=== PATIENT | female | born 1955 | race Caucasian/White ===

== ENCOUNTER 2023-12-25 15:47 | Outpatient (OUT) | payer MEDICARE, OTHER, SELFPAY ==
[2023-12-25 16:49] LABS: Basophils Absolute Auto 0.1 10^3/uL (0.0-0.1); Basophils Percent Auto 1.2 % (0.2-2.0); Eosinophils Absolute Auto 0.1 10^3/uL (0.0-0.7); Eosinophils Percent Auto 1.5 % (0.9-7.0); Hematocrit 38.5 % (36.0-48.0); Hemoglobin 13.1 g/dL (12.0-16.0); Immature Granulocytes Abs Auto 0.01 10^3/uL (0.00-0.03); Immature Granulocytes Pct Auto 0.2 % (0.0-0.5); Lymphocytes Percent Auto 30.8 % (20.5-60.0); Mean Corpuscular Hemoglobin 30.8 pg (26.7-34.0); Mean Corpuscular Volume 90.4 fL (81.0-99.0); Mean Platelet Volume 10.3 fL (9.5-13.5); Monocytes Absolute Auto 0.4 10^3/uL (0.3-0.8); Monocytes Percent Auto 6.5 % (1.7-12.0); Neutrophils Percent Auto 59.8 % (43.0-75.0); Platelet Count 236 10^3/uL (150-450); Red Blood Count 4.26 10^6/uL (4.20-5.40); Red Cell Distribution Width 12.8 % (11.0-15.0); White Blood Count 6.6 10^3/uL (4.0-11.0)
[2023-12-25 17:43] LABS: Free T4 1.16 ng/dL (0.76-1.46)
[2023-12-25 17:44] LABS: Alanine Aminotransferase 18 U/L (14-59); Albumin Globulin Ratio 0.9; Albumin Level 3.7 g/dL (3.4-5.0); Alkaline Phosphatase 86 U/L (46-116); Anion Gap 10.8; Aspartate Amino Transferase 14 U/L (15-37); BUN Creatinine Ratio 31.6; Bilirubin Total 0.4 mg/dL (0.2-1.0); Calcium 9.4 mg/dL (8.5-10.1); Carbon Dioxide 29.1 mmol/L (21.0-32.0); Chloride 103 mmol/L (98-107); Estimated GFR (African America >60 (>=60); Estimated GFR (Non-African Ame >60 (>=60); Globulin 4.2 g/dL; Glucose 87 mg/dL (74-106); Potassium 3.9 mmol/L (3.5-5.1); Sodium 139 mmol/L (136-145); Thyroid Stimulating Hormone 1.089 uIU/mL (0.358-3.740); Total Protein 7.9 g/dL (6.4-8.2)
== END 2023-12-25 15:48 | disposition home or self-care (01) ==
LOC: LAB 15:54
PROVIDERS: PCP Family Medicine; Visit Provider Family Medicine
DX: Z00.00 Encounter for general adult medical examination without abnormal findings (principal); E03.9 Hypothyroidism, unspecified; R03.0 Elevated blood-pressure reading, without diagnosis of hypertension
CPT/HCPCS: 36415; 80053; 84439; 84443; 85025

== ENCOUNTER 2025-01-07 07:54 | Outpatient (OUT) | payer MEDICARE, OTHER, SELFPAY ==
--- OUTSIDE RECORDS SUMMARY | 2025-01-06 07:28 | XMS_ITS | Continuity of Care Document ---
Author Organization [facility] Address [address] [place] [address] Phone Care Team Providers Care Bench Tool Maker Name Role Phone Aurora Anderson MD Primary Care Provider Aurora Anderson MD Attending Provider Care Teams Patient Care Team Team Status: Active Member Role Status Dates Aurora Anderson MD Primary Care Provider Active Patient Care Team Team Status: Inactive Member Role Status Dates Aurora Anderson MD Primary Care Provider Active Start: January 06, 2025 End: January 06, 2025 Aurora Anderson MD Attending Provider Active St art: January 06, 2025 End: January 06, 2025 Chief Complaint and Reason for Visit Chief Complaint Admit Date Wellness January 06, 2025 10:5 2am Reason for Visit Admit Date Hypercholesteremia January 06, 2025 10:5 2am Hypothyroid January 06, 2025 10:5 2am Medicare annual wellness visit, initial January 06, 2025 10:52am Screening mammogram for breast cancer Ju ly 2024 10:52am Allergies, Adverse Reactions, Alerts Allergen Type Severity Reaction Last Updated Verified Status penicillin G Allergy Severe Rash January 06 025 10:59am Yes Active azithromycin Allergy Unknown Unknown Reaction December 092024 10:59am Yes Active Penicillins Adverse Reaction Unknown Rash January 062024 10:59am Yes Active Social History Smoking Status Status Start Date End Date Date of Observa tion Never smoked tobacco (finding) August 28, 2023 11:16am Observation Status Observation Response Date of Response Legal Sex Female (finding) Sex Assigned At Female November 1 7th, 1955 Family History Relationship Condition Age at Onset Recorded Date/T socorro father Heart disease Unknown Diabetes mellitus Unknown Unknown mother Unknown Malignant neoplasm Unknown sister Diabetes mellitus Unknown Problems Active Problems Medical Problem Onset Date Status Comments Medicare annual wellness visit, initial Unknown A ctive Screening mammogram for breast cancer Unknown Act hernando Overweight (BMI 25.0-29.9) Unknown Active Abnormal weight gain Unknown Active Hypercholesteremia Unknown Active Hypothyroid Unknown Active Problem List cl fabienne-up per request of Phys. EHR Cmte Elevated blood-pressure read ing, without diagnosis of hypertension Unknown Active Inactive/Resolved Problems Medical Problem Onset Date Status Comments Alcoholic intoxication Unknown Resolved Probl em List clean-up per request of Phys. EHR Cmte Syncope Unknown Resolved Problem List cl fabienne-up per request of Phys. EHR Cmte Medications Medication Status Dose Units Route Directions Qty Days St art Date Stop Date End Date Instructions Adherence Levothyroxi ne 75 mcg tablet Discont inued 0 [address] [facility] December 05, 2023 11:02a m 2023 1:20p m TAKE 1 TABLET BY MOUTH EVERY DAY Levothyroxi ne 75 mcg tablet Discont inued [address] [address] 2023 1:20pm August 31, 2024 12:55 pm TAKE 1 TABLET BY MOUTH EVERY DAY Levothyroxi ne 75 mcg tablet Discont inued 0 [address] [address] August 31, 2024 12:55p m November 25, 2024 12:18 pm TAKE 1 TABLET BY MOUTH EVERY DAY Levothyroxi ne 75 mcg tablet Active 0 [address] [address] November 25, 2024 12:18p m TAKE 1 TABLET BY MOUTH EVERY DAY Complies with drug therapy Levothyroxi ne (Synthroid) 75 mcg tablet Discont inued 37.5 MCG PO Daily August 28, 2023 12:00a m October 09, 2023 11:23 am Magnesium Oxide 500 mg capsule Discont inued 500 MG PO Daily August 28, 2023 12:00a m November 20, 2023 2:45p m Levothyroxi ne (Synthroid) 75 mcg tablet Discont inued 75 MCG PO Daily October 09, 2023 11:22a m December 05, 2023 11:02 am Semaglutide Base 0.6 mg/0.5 mL Discont inued 0.5 ML SUBCUT every week December 26, 2023 12:00a m 2024 12:54 pm [facility] Pre-filled Syringes using Semaglutide Base. Dispense 2 mL = (Four 0.5 mL pre-filled syringes) Naltrexone- Bupropion (Contrave) 8-90 mg tablet extended release Discont inued 1 TAB PO Every morning August 14, 2023 1:00am August 14, 2023 2:50p m Naltrexone- Bupropion (Contrave) 8-90 mg tablet extended release Discont inued 2 TAB PO Twice daily August 14, 2023 2:50pm August 14, 2023 2:51p m Naltrexone- Bupropion (Contrave) 8-90 mg tablet extended release Discont inued 2 TAB PO Twice daily August 14, 2023 2:50pm October 09, 2023 11:49 am Semaglutide Base 0.3 mg/0.25 mL Discont inued 0.25 ML SUBCUT every week October 09, 2023 12:00a m October 09, 2023 11:49 am [facility] Pre-filled Syringes using Semaglutide Base. Dispense 1 mL = (Four 0.25 mL pre-filled syringes) Semaglutide Base 0.3 mg/0.25 mL Discont inued 0.25 ML SUBCUT every week October 09, 2023 12:00a m December 26, 2023 10:53 am [facility] Pre-filled Syringes using Semaglutide Base. Dispense 1 mL = (Four 0.25 mL pre-filled syringes) Semaglutide Base 0.6 mg/0.5 mL Discont inued 0.5 ML SUBCUT every week 2 2024 12:53p m January 06, 2025 10:59 am [facility] Pre-filled Syringes using Semaglutide Base. Dispense 2 mL = (Four 0.5 mL pre-filled syringes) Vital Signs Vital Reading Result Reference Range Collection Date/Time Height 65 [in_i] January 06, 2025 10:58am Weight 76.43 kg January 06, 2025 10:58am Heart Rate 73 /min 60-100 January 06, 2025 10:58am Respiratory rate 12 /min 12-24 January 06, 2025 10:58am Oxygen saturation by Pulse oximetry 97 % 95-100 January 06, 2025 10:5 8am BP Systolic 131 mm[Hg] 100-140 January 06, 2025 10:58am BP Diastolic 73 mm[Hg] 60-100 January 06, 2025 10:58am BMI (Body Mass Index) 28.0 kg/m2 December 092024 10:58am Advance Directives Advance Directive Response Recorded Date/ Time Advance Directives No September 14 10:57am Insurance Providers Guarantor Noris Pandya Address [address] [facility] [address] Contact Info. Home Phone: Payer Policy Id Subscriber's Name Subscriber Id Effectiv e Date Expiration Date [facility] [id number] Noris Pandya [id number] Medicare [id number] Noris Pandya [id number] Encounters Encounter Location(s) Arrival/Admit Date Discharge/Depart Date Provider(s) Departed Physician/Prov ider Office Visit -[facility] January 06, 2025 10:52am January 06, 2025 11:27am Aurora Anderson MD Recent Diagnosis Onset Date Admit Date Hypercholesteremia Unknown January 06 10:52am Hypothyroid Unknown January 06, 2025 10:52am Medicare annual wellness visit, initial Unknown January 06, 2025 10:52am Screening mammogram for breast cancer Unknown January 06, 2025 10:52am Assessments Diagnosis Onset Date Resolution Status Admit Date Hypercholesteremia acute December 092024 10:52am Hypothyroid acute January 06 10:52am Medicare annual wellness vis it, initial acute January 06, 2025 10:52am Screening mammogram for lyla [facility] cancer acute January 06, 2025 10:52am Plan of Treatment Future Tests Future scheduled test information is unavailable Pending Tests Test Name Ordered Date Scheduled Date Comprehensive Metabolic Panel January 06, 2025 11 :07am MM screening mammo BI w/CAD January 06, 2025 11:0 9am Future Visits Future appointment information is unavailable Referrals to Other Providers Referral information is unavailable Future Procedures Procedure Name Ordered Date Scheduled Date Complete Blood Count Auto Diff January 06, 2025 1 1:08am Free T4 (Free Thyroxine) January 06, 2025 11:07am Thyroid Stim Hormone w/Rflx January 06, 2025 11:0 7am Future Medications Future medication information is unavailable Patient Instructions Patient instructions are unavailable
--- NOTE | 2025-01-07 | MM_ITS ---
Patient Name: SELINA HAWK MR#: [id number] : 1955 Exam Date: 01/07/2025 Ordering Doctor: DR PIERRE FERGUSON M.D. RADIOLOGY REPORT PROCEDURE: MM TOMOSYNTHESIS SCREENING BI COMPARISON: MG MAMM SCREEN 3D LINA CAD, 11/01/2022. MG MAMM SCREEN 3D LINA CAD, 01/08/2021. MAMMO POST BIOPSY LEFT, 05/27/2018. MG MAMM SCREEN LINA W CAD, 04/14/2018. INDICATIONS: SCREENING FOR MALIGNANT NEOPLASM OF BREASTS Z12.31 Calculator Name NCI Breast Cancer Risk Assessment Tool 5 Year Breast Cancer Risk 2.50% Lifetime Breast Cancer Risk 7.40% Personal Breast Cancer No Personal Ovarian Cancer No Treatments None Family Cancers Mother with stomach cancer at age ~72. LOCATION: [facility] BREAST COMPOSITION: There are scattered areas of fibroglandular density. FINDINGS: DIAGNOSTIC CATEGORY 1--NEGATIVE. RIGHT BREAST: No significant suspicious finding. LEFT BREAST: No significant suspicious finding. RECOMMENDATIONS: ROUTINE MAMMOGRAM AND CLINICAL EVALUATION IN 12 MONTHS. PLEASE NOTE: A NORMAL MAMMOGRAM DOES NOT EXCLUDE THE POSSIBILITY OF BREAST CANCER. A CLINICALLY SUSPICIOUS PALPABLE LUMP SHOULD BE BIOPSIED. Dictated by: Marcio Rodney DO on 01/07/2025 at 15:39 Approved by: Marcio Rodney DO on 01/07/2025 at 15:46
--- OUTSIDE RECORDS SUMMARY | 2025-01-07 07:55 | XMS_ITS | Encounter Summary ---
Author Organization [facility] Address [address] [facility] [place] [address] Care Team Providers Care Manager Life Insurance Name Role Phone Aurora Anderson MD Primary Care Provider [phone] Encounter Details Date Type Department Care Team (Late st Contact Info) Description 04/10/2023 Abstract [facility] [address] [place] [id number] Vesna Bueno, YESSY [address] [place] [address] Social History Tobacco Use Types Packs/Day Years Used Date Smoking Tobacco: Never Assessed AUDIT-C Answer Date Recorded Q1: How often do you have a drink containing alc ohol? Monthly or less 04/14/2023 Q2: How many drinks containi ng alcohol do you have on a typical day when you are drinking? 1 or 2 04/14/2023 Q3: How often do you have si x or more drinks on one occasion? Never 04/14/2023 Comments Unknown Sex and Gender Information Value Date Recorded Sex Assigned at Not on file Legal Sex Female 6:38 PM EDT Gender Identity Not on file Sexual Orientation Not on file documented as of this encounter Plan of Treatment Not on file documented as of this encounter Visit Diagnoses Not on filedocumented in this encounter Care Teams Manager Life Insurance Relationship Specialty Start Date End Date Aurora Anderson MD PCP - General Family Medicine 04/08/23 documented as of this encounter
--- OUTSIDE RECORDS SUMMARY | 2025-01-07 07:55 | XMS_ITS | Clinical Summary ---
Author Organization [facility] Address [address] [place] [address] Care Team Providers Care Manager Salt Name Role Phone Aurora Anderson MD Primary Care Provider [phone] Allergies Active Allergy Reactions Criticality Noted Date Comments Azithromycin 04/10/2023 Other Reaction(s): Unknown Penicillin G Sodium Rash Low 04/10/2023 Medications levothyroxine (Synthroid, Levoxyl) 75 MCG tablet Take 75 mcg by mouth 1 (one) time each day at the same time. Active meloxicam (Mobic) 15 MG tablet Take 15 mg by mouth 1 (one) time each day at the same time. Active ergocalciferol (Vitamin D-2) 1.25 MG (30825 UT) capsule Take 50,000 Units by mouth 1 (one) time per week. Active fluticasone (Flonase) 50 MCG/ACT nasal spray Administer 2 sprays into each nostril every 12 (twelve) hours. Active Active Problems Problem Noted Date Diagnosed Date Benign paroxysmal positional vertigo 04/10/2023 Eustachian tube disorder 04/10/2023 Hearing loss in left ear 04/10/2023 Osteoarthritis of knee 04/10/2023 Sensorineural hearing loss (SNHL) of both ears 1 06/10/2022 Hypothyroid 04/10/2023 Vitamin D deficiency 04/10/2023 Hyperlipidemia 04/10/2023 Family History Medical History Relation Name Comments No Known Problems Daughter Diabetes Father Heart disease Father Cancer Mother Melanoma Neg Hx Relation Name Status Comments Daughter x2 Father Mother Social History Tobacco Use Types Packs/Day Years Used Date Smoking Tobacco: Never Smokeless Tobacco: Never Tobacco Cessation:Counseling Given: Not Answered Alcohol Use Standard Drinks/Week Comments Yes 0 (1 standard drink = 0.6 oz pure alcohol) caffeine intake: 1-2 cups per day AUDIT-C Answer Date Recorded Q1: How often [...] on file Sexual Orientation Not on file Last Filed Vital Signs Vital Sign Reading Time Taken Comments Blood Pressure 137/87 07/23/2023 3:11 PM EST Pulse - - Temperature - - Respiratory Rate - - Oxygen Saturation - - Inhaled Oxygen Concentration - - Weight 78.9 kg (174 lb) 07/23/2023 3:11 PM EST Height 167.6 cm (5' 6 ) 07/23/2023 3:11 PM EST Body Mass Index 28.08 07/23/2023 3:11 PM EST Plan of Treatment Health Maintenance Due Date Last Done Comments CT Colonography 1955 Colonoscopy 1955 Colorectal Cancer Screening 1955 FIT-DNA 1955 FIT 1955 FOBT 1955 Sigmoidoscopy 1955 Mammogram 1994 Pneumococcal Vaccine: 65+ Years (1 of 1 - PCV) 004 Influenza Vaccine (#1) 2025 Insurance MEDICARE [employer] [facility] Care Teams Manager Salt Relationship Specialty Start Date End Date Aurora Anderson MD PCP - General Family Medicine 04/08/23
--- OUTSIDE RECORDS SUMMARY | 2025-01-07 07:55 | XMS_ITS | Clinical Summary ---
Author Organization [facility] Address [address] [place] [address] Phone Care Team Providers Care Yard Foreman Name Role Phone Unavailable Primary Care Provider Unavailabl e Social History Tobacco Use Types Packs/Day Years Used Date Smoking Tobacco: Never Assessed Comments Unknown Sex and Gender Information Value Date Recorded Sex Assigned at Not on file Legal Sex Female 5:41 PM EST Gender Identity Not on file Sexual Orientation Not on file Plan of Treatment Health Maintenance Due Date Last Done Comments CT Colonography 1955 Colonoscopy 1955 Colorectal Cancer Screening 1955 FIT-DNA (Cologuard) 1955 FIT 1955 Lipid Panel 1955 Sigmoidoscopy 1955 Yearly Adult Physical 1955 MMR Vaccines (1 of 1 - Stand rhonda series) 1955 Hepatitis C Screening 1972 DTaP/Tdap/Td Vaccines (1 - Tdap) 1976 Mammogram 1994 Pneumococcal Vaccine (1 of 1 - PCV) 2004 Zoster Vaccines (1 of 2) 2004 Bone Density Scan 2019 COVID-19 Vaccine (1 - 2023-2 5 season) 2024 Influenza Vaccine (#1) 2025 RSV High Risk: (Elderly (60+ ) or Population) (1 - 1-dose 75+ series) 2029 HIB Vaccines Aged Out No longer eligi ble based on patient's age to complete this topic HPV Vaccines Aged Out No longer eligi ble based on patient's age to complete this topic Hepatitis A Vaccines Aged Out No long er eligible based on patient's age to complete this topic Hepatitis B Vaccines Aged Out No long er eligible based on patient's age to complete this topic IPV Vaccines Aged Out No longer eligi ble based on patient's age to complete this topic Meningococcal Vaccine Aged Out No marylou vince eligible based on patient's age to complete this topic Rotavirus Vaccines Aged Out No longer eligible based on patient's age to complete this topic
--- OUTSIDE RECORDS SUMMARY | 2025-01-07 07:57 | XMS_ITS | CCD ---
Author Organization [facility] Care Team Providers Care Access Analyst Name Role Phone AURORA FERGUSON Primary Care Physician Timmis, Beatriz H Admitting Unavailable Timmis, Beatriz H Attending Unavailable Timmis, Beatriz H Referring Unavailable Timmis, Beatriz H Admitting Unavailable Timmis, Beatriz H Attending Unavailable Timmis, Beatriz H Referring Unavailable FERGUSON, DR AURORA [place] Primary Care Unavailable FERGUSON, DR AURORA [place] Consulting Unavailable REQUEST, DR VICENTE LISTED Admitting Unavaila ble REQUEST, DR VICENTE LISTED Attending Unavaila ble FERGUSON, DR AURORA [place] Admitting Unavailable FERGUSON, DR AURORA [place] Primary Care Unavailable FERGUSON, DR AURORA [place] Attending Unavailable WEST, DR KONG cMkee Consulting Unavailable FERGUSON, DR AURORA [place] Consulting Unavailable Aurora Ferguson Aurora Ferguson MD Primary Care Provider [phone] TIMMIS, BEATRIZ Haas Attending Unavailable TIMMIS, BEATRIZ Haas Attending Unavailable Aurora Ferguson MD Primary Care Provider Aurora Ferguson MD Attending Provider Allergies Allergy Classification Reported Allergen(s) Allergy Type Date of Onset Reaction(s) Facility (4 sources) Penicillin; Translations: [penicillin] Drug Allergy [facility] (20 sources) Azithromycin Drug Allergy 3 Unknown, Unknown Reaction [facility] Work Phone: (19 sources) Penicillin G Drug Allergy 4 Unknown, [facility] (6 sources) Penicillin G sodium Allergy to substance 3 [facility] (10 sources) Penicillins Propensity to adverse reactions 4 [facility] Medications Current Medications Medication Drug Class(es) Dates Sig (Normalized) Sig (Original) ergocalciferol 1.25 mg oral capsule (6 sources) Provitamin D2 Compound take 1 capsule by mouth every week ergocalciferol (Vitamin D-2) 1.25 MG (60132 UT) capsule Take 50,000 Units by mouth 1 (one) time per week. 0 Active fluticasone propionate 0.05 mg/actuat metered dose nasal spray (6 sources) Corticosteroid fluticasone (Flonase) 50 MCG/ACT nasal spray Administer 2 sprays into each nostril every 12 (twelve) hours. 0 Active levothyroxine sodium 0.075 mg oral tablet (20 sources) l-Thyroxine Start: 12-05-2023 End: 11-25-2024 take 1 tablet by mouth once daily Levothyroxine 75 mcg tablet Active 0 .ROUTE .COMPLEX 90 November 25, 2024 12:18pm TAKE 1 TABLET BY MOUTH EVERY DAY Complies with drug therapy Start: 10-09-2023 End: 12-05-2023 take 1 tablet by mouth once daily Levothyroxine (Synthroid) 75 mcg tablet Discontinued 75 MCG PO Daily October 09, 2023 11:22am December 05, 2023 11:02am Start: 08-28-2023 End: 10-09-2023 Levothyroxine (Synthroid) 75 mcg tablet Discontinued 37.5 MCG PO Daily August 28, 2023 12:00am October 09, 2023 11:23am Start: 03-01-2022 levothyroxine 75 mcg (0.075 mg) Tab 75 mcg = 1 tab(s), Refills(s) 0, Thyroid Start Date: 03/01/22 Status: Ordered take 1 tablet by adriel once daily levothyroxine (Synthroid, Levoxyl) 75 MCG tablet Take 75 mcg by mouth 1 (one) time each day at the same time. 0 Active meloxicam 15 mg oral tablet (6 sources) Nonsteroidal Anti-inflammatory Drug take 1 tablet by mouth once daily meloxicam (Mobic) 15 MG tablet Take 15 mg by mouth 1 (one) time each day at the same time. 0 Active ofloxacin 3 mg/ml otic solution (2 sources) Quinolone Antimicrobial Start: 07-23-19 End: 08-02-19 ofloxacin (Floxin) 0.3 % otic solution Indications: Chronic myringitis of left ear Administer 4 drops into the left ear in the morning and 4 drops before bedtime. Do all this for 10 days. 10 mL 0 07/23/2023 08/02/2023 Active phentermine hydrochloride 37.5 mg oral capsule (6 sources) Sympathomimetic Amine Anorectic Start: 04-14-20 take 1 capsule by mouth every twenty-four hours Adipex-P 37.5 MG 1 capsule Orally Once a day for 30 days Apr, Active Start: 04-11-2023 take 1 capsule by mo uth every twenty-four hours Adipex-P 37.5 MG 1 capsule Orally Once a day for 30 days Apr, Active Start: 02-13-2023 take 1 capsule by mo uth every twenty-four hours Adipex-P 37.5 MG 1 capsule Orally Once a day for 30 days Feb, Active Start: 01-16-2023 take 1 capsule by mo uth every twenty-four hours Adipex-P 37.5 MG 1 capsule Orally Once a day for 30 days Jan, Active Start: 11-21-2022 take 1 capsule by mo uth every twenty-four hours Semaglutide Base (13 sources) Start: 12-26-2023 inject 1 mL by subcutaneous injection every week Semaglutide Base Active 0.5 ML SUBCUT every week December 25, 2023 11:00pm [facility] Pre-filled Syringes using Semaglutide Base. Dispense 2 mL = (Four 0.5 mL pre-filled syringes) Start: 12-26-2023 inject 1 mL by subcu taneous injection every week Semaglutide Base Active 0.5 ML SUBCUT every week December 26, 2023 12:00am [facility] Pre-filled Syringes using Semaglutide Base. Dispense 2 mL = (Four 0.5 mL pre-filled syringes) Start: 10-09-2023 End: 10-09-2023 inject 1 mL by subcutaneous injection every week Semaglutide Base Discontinued 0.25 ML SUBCUT every week October 08, 2023 11:00pm October 09, 2023 10:49am [facility] Pre-filled Syringes using Semaglutide Base. Dispense 1 mL = (Four 0.25 mL pre-filled syringes) Start: 10-09-2023 End: 12-26-2023 inject 1 mL by subcutaneous injection every week Semaglutide Base Discontinued 0.25 ML SUBCUT every week October 08, 2023 11:00pm December 26, 2023 9:53am [facility] Pre-filled Syringes using Semaglutide Base. Dispense 1 mL = (Four 0.25 mL pre-filled syringes) Start: 10-09-2023 End: 12-26-2023 inject 1 mL by subcutaneous injection every week Semaglutide Base Discontinued 0.25 ML SUBCUT every week October 09, 2023 12:00am December 26, 2023 10:53am [facility] Pre-filled Syringes using Semaglutide Base. Dispense 1 mL = (Four 0.25 mL pre-filled syringes) Start: 10-09-2023 inject 1 mL by subcu taneous injection every week Semaglutide Base Active 0.25 ML SUBCUT every week October 09, 2023 12:00am [facility] Pre-filled Syringes using Semaglutide Base. Dispense 1 mL = (Four 0.25 mL pre-filled syringes) Start: 10-09-2023 End: 10-09-2023 inject 1 mL by subcutaneous injection every week Semaglutide Base Discontinued 0.25 ML SUBCUT every week October 09, 2023 12:00am October 09, 2023 11:49am [facility] Pre-filled Syringes using Semaglutide Base. Dispense 1 mL = (Four 0.25 mL pre-filled syringes) Vitamin D3 1000 intl units oral capsule (2 sources) Start: 03-01-2022 take 1 capsule by mouth once daily Vitamin D3 1000 intl units oral capsule 25 mcg = 1 cap(s), Oral, Daily, Prophylaxis Start Date: 03/01/22 Status: Ordered Zinc (2 sources) Start: 03-01-2022 Zinc 140 mg (a s elemental zinc 50 mg) oral tablet 140 mg = 1 tab(s), Oral, Daily, Prophylaxis Start Date: 03/01/22 Status: Ordered Completed/Discontinued Medications Medication Drug Class(es) Dates Sig (Normalized) Sig (Original) 12 hr buPROPion hydrochloride 90 mg / naltrexone hydrochloride 8 mg extended release oral tablet (20 sources) Opioid Antagonist, Aminoketone Start: 08-14-2023 End: 10-09-2023 take 2 tablets by mouth twice daily Naltrexone-Bupropi on (Contrave) 8-90 mg tablet extended release Discontinued 2 TAB PO Twice daily 120 August 14, 2023 2:50pm October 09, 2023 11:49am Start: 08-14-2023 End: 08-14-2023 take 1 tablet by mouth once daily in the morning Naltrexone-Bupropion (Contrave) 8-90 mg tablet extended release Discontinued 1 TAB PO Every morning August 14, 2023 1:00am August 14, 2023 2:50pm Start: 07-14-2023 take 1 tablet by adriel th every twenty-four hours Contrave 8-90 MG 1 tablet in the morning Orally Once a day for 30 day(s) Jul, Active magnesium oxide 500 mg oral capsule (10 sources) Start: 08-28-2023 End: 11-20-2023 take 1 capsule by mouth once daily Magnesium Oxide 500 mg capsule Discontinued 500 MG PO Daily August 28, 2023 12:00am November 20, 2023 2:45pm Semaglutide Base 0.3 mg/0.25 mL (6 sources) Start: 10-09-2023 End: 10-09-2023 inject 1 mL by subcutaneous injection every week Semaglutide Base 0.3 mg/0.25 mL Discontinued 0.25 ML SUBCUT every week October 09, 2023 12:00am October 09, 2023 11:49am [facility] Pre-filled Syringes using Semaglutide Base. Dispense 1 mL = (Four 0.25 mL pre-filled syringes) Start: 10-09-2023 End: 12-26-2023 inject 1 mL by subcutaneous injection every week Semaglutide Base 0.3 mg/0.25 mL Discontinued 0.25 ML SUBCUT every week October 09, 2023 12:00am December 26, 2023 10:53am [facility] Pre-filled Syringes using Semaglutide Base. Dispense 1 mL = (Four 0.25 mL pre-filled syringes) Start: 10-09-2023 End: 10-09-2023 inject 1 mL by subcutaneous injection every week Semaglutide Base 0.3 mg/0.25 mL Discontinued 0.25 ML SUBCUT every week October 08, 2023 11:00pm October 09, 2023 10:49am [facility] Pre-filled Syringes using Semaglutide Base. Dispense 1 mL = (Four 0.25 mL pre-filled syringes) Start: 10-09-2023 End: 12-26-2023 inject 1 mL by subcutaneous injection every week Semaglutide Base 0.3 mg/0.25 mL Discontinued 0.25 ML SUBCUT every week October 08, 2023 11:00pm December 26, 2023 9:53am [facility] Pre-filled Syringes using Semaglutide Base. Dispense 1 mL = (Four 0.25 mL pre-filled syringes) Semaglutide Base 0.6 mg/0.5 mL (6 sources) Start: 07-09-2024 End: 01-06-2025 inject 1 mL by subcutaneous injection every week Semaglutide Base 0.6 mg/0.5 mL Discontinued 0.5 ML SUBCUT every week July 09, 2024 12:53pm January 06, 2025 10:59am [facility] Pre-filled Syringes using Semaglutide Base. Dispense 2 mL = (Four 0.5 mL pre-filled syringes) Start: 07-09-2024 inject 1 mL by subcu taneous injection every week Semaglutide Base 0.6 mg/0.5 mL Active 0.5 ML SUBCUT every week July 09, 2024 12:53pm [facility] Pre-filled Syringes using Semaglutide Base. Dispense 2 mL = (Four 0.5 mL pre-filled syringes) Start: 07-09-2024 inject 1 mL by subcu taneous injection every week Semaglutide Base 0.6 mg/0.5 mL Active 0.5 ML SUBCUT every week July 09, 2024 11:53am [facility] Pre-filled Syringes using Semaglutide Base. Dispense 2 mL = (Four 0.5 mL pre-filled syringes) Start: 12-26-2023 End: 07-09-2024 inject 1 mL by subcutaneous injection every week Semaglutide Base 0.6 mg/0.5 mL Discontinued 0.5 ML SUBCUT every week December 26, 2023 12:00am July 09, 2024 12:54pm [facility] Pre-filled Syringes using Semaglutide Base. Dispense 2 mL = (Four 0.5 mL pre-filled syringes) Start: 12-26-2023 End: 07-09-2024 inject 1 mL by subcutaneous injection every week Semaglutide Base 0.6 mg/0.5 mL Discontinued 0.5 ML SUBCUT every week 2 December 25, 2023 11:00pm July 09, 2024 11:54am [facility] Pre-filled Syringes using Semaglutide Base. Dispense 2 mL = (Four 0.5 mL pre-filled syringes) Problems Active Problems Problem Classification Problem Date Documented Date Episodic/Chronic Alcohol-related disorders (10 sources) Alcohol intoxication; Translations: [Alcohol use, unspecified with intoxication, unspecified] 05-21-2023 Episodic Comment on above: Problem List clean-u p per request of Phys. EHR Cmte Chronic obstructive pulmonary disease and bronchiectasis (10 sources) Bronchitis; Translations: [Bronchitis, not specified as acute or chronic] Episodic Disorders of lipid metabolism (20 sources) Hyperlipidemia; Translations: [Hyperlipidemia, unspecified] Onset: 04-10-2023 04-10-2023 Chronic Malaise and fatigue (12 sources) Other fatigue; Translations: [Fatigue] Onset: 11-04-2022 Episodic Nutritional deficiencies (16 sources) Vitamin D deficiency; Translations: [Vitamin D deficiency, unspecified] Onset: 04-10-2023 04-10-2023 Chronic Osteoarthritis (6 sources) Osteoarthritis of knee; Translations: [Osteoarthritis of knee, unspecified] Onset: 04-10-2023 04-10-2023 Chronic Other circulatory disease (10 sources) Elevated blood-pressure reading without diagnosis of hypertension; Translations: [Elevated blood-pressure reading, without diagnosis of hypertension] 08-28-2023 Episodic Other circulatory disease (12 sources) Elevated blood-pressure reading, without diagnosis of hypertension; Translations: [Elevated blood pressure reading without diagnosis of hypertension] 08-28-2023 Episodic Other connective tissue disease (1 source) Spasm; Translations: [Cramp and spasm] Episodic Other ear and sense organ disorders (9 sources) Hearing loss; Translations: [Unspecified hearing loss, left ear] Chronic Other ear and sense organ disorders (1 source) Unspecified hearing loss, left ear; Translations: [Decreased hearing of left ear] Chronic Other ear and sense organ disorders (7 sources) Hearing loss in left ear; Translations: [Unspecified hearing loss, left ear] Onset: 04-10-2023 07-15-2023 Chronic Other ear and sense organ disorders (6 sources) Sensorineural hearing loss, bilateral; Translations: [Sensorineural hearing loss, bilateral] Onset: 04-10-2023 04-10-2023 Chronic Other ear and sense organ disorders (2 sources) Chronic left myringitis; 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, left ear] 07-23-2023 Chronic Other injuries and conditions due to external causes (1 source) History of fall; Translations: [History of falling] Episodic Other nutritional; endocrine; and metabolic disorders (18 sources) Body mass index 25-29 - overweight; Translations: [Body mass index (BMI) 27.0-27.9, adult] 10-09-2023 Episodic Other nutritional; endocrine; and metabolic disorders (18 sources) Overweight; Translations: [Overweight] Episodic Other nutritional; endocrine; and metabolic disorders (2 sources) Body mass index (BMI) 29.0-29.9, adult Episodic Other nutritional; endocrine; and metabolic disorders (1 source) Body mass index (BMI) 27.0-27.9, adult; Translations: [BMI 27.0-27.9,adult] Episodic Other nutritional; endocrine; and metabolic disorders (1 source) Body mass index (BMI) 28.0-28.9, adult Episodic Other nutritional; endocrine; and metabolic disorders (9 sources) Abnormal weight gain; Translations: [Abnormal weight gain] 08-28-2023 Episodic Other nutritional; endocrine; and metabolic disorders (2 sources) Abnormal weight gain; Translations: [Abnormal weight gain] 08-28-2023 Episodic Other screening for suspected conditions (not mental disorders or infectious disease) (4 sources) Encounter for screening mammogram for malignant neoplasm of breast; Translations: [Encounter for other screening for malignant neoplasm of breast] Onset: 11-04-2022 Episodic Other upper respiratory infections (1 source) Chronic sinusitis; Translations: [Chronic sinusitis, unspecified] Chronic Residual codes; unclassified (1 source) Family history of malignant neoplasm of digestive organs; Translations: [FAM HX MALIG NEOPLASM DIGESTIV ORGN] Onset: 11-04-2022 Episodic Residual codes; unclassified (1 source) Immunization refused ; Translations: [Immunization not carried out because of patient refusal] Episodic Sprains and strains (10 sources) Sprain of other specified parts of left knee, initial encounter; Translations: [Sprain of left knee] Episodic Syncope (10 sources) Syncope; Translations: [Syncope and collapse] 05-21-2023 Episodic Comment on above: Problem List clean-u p per request of Phys. EHR Cmte Thyroid disorders (20 sources) Hypothyroidism, unspecified; Translations: [Acquired hypothyroidism] Onset: 11-01-2022 Chronic Comment on above: Problem List clean-u p per request of Phys. EHR Cmte Past or Other Problems Problem Classification Problem Date Documented Da te Episodic/Chronic Conditions associated with dizziness or vertigo (16 sources) Benign paroxysmal positional vertigo; Translations: [Benign paroxysmal vertigo, unspecified ear] Onset: 04-10-2023 04-10-2023 Episodic Deficiency and other anemia (1 source) Iron deficiency anemia; Translations: [Iron deficiency anemia, unspecified] Onset: 04-02-2016 Episodic Other lower respiratory disease (1 source) Dyspnea; Translations: [Dyspnea, unspecified] Onset: 03-28-2016 Episodic Other upper respiratory infections (1 source) Acute maxillary sinusitis; Translations: [Acute recurrent maxillary sinusitis] Onset: 11-09-2015 Episodic Otitis media and related conditions (18 sources) Eustachian tube disorder; Translations: [Other specified disorders of Eustachian tube, unspecified ear] Onset: 03-07-2022 Episodic Results Test Name Value Interpretation Reference Range Facility Basophils Auto (Bld) [#/Vol] on 12-25-2023 Basophils (Bld) [#/Vol] 0.1 10 3/uL 0.0-0.1 [facility] Basophils/100 WBC Auto (Bld) on 12-25-2023 Basophils/100 WBC (Bld) 1.2 % 0.2-2.0 [facility] Eosinophils/100 WBC Auto (Bl d)on 12-25-2023 Eosinophils/100 WBC (Bld) 1.5 % 0.9-7.0 [facility] Erythrocyte distribution wid th Auto (RBC) [Ratio]on 12-25-2023 Erythrocyte distribution width (RBC) [Ratio] 12.8 % 11.0-15.0 [facility] Estimated glomerular filtrat ion rate (GFR) non- Americanon 12-25-2023 GFR/1.73 sq M.predicted among non-blacks MDRD (S/P/Bld) [Vol rate/Area] mL/min/{1.73_m2} >=60 [facility] Globulin Calc (S) [Mass/Vol] on 12-25-2023 Globulin (S) [Mass/Vol] 4.2 g/dL [facility] Hematocrit Auto (Bld) [Volum e fraction]on 12-25-2023 Hematocrit (Bld) [Volume fraction] 38.5 % 36.0-48.0 [facility] Hemoglobin [Mass/volume] in Bloodon 12-25-2023 Hemoglobin (Bld) [Mass/Vol] 13.1 g/dL 12.0-16.0 [facility] Laboratory - Chemistry and C hemistry - challengeon 12-25-2023 Albumin [Mass/Vol] 3.7 g/dL 3.4-5.0 [facility] ALP [Catalytic activity/Vol] 86 U/L 46-116 [facility] ALT [Catalytic activity/Vol] 18 U/L 14-59 [facility] AST [Catalytic activity/Vol] 14 U/L Low 15-37 [facility] Bilirubin [Mass/Vol] 0.4 mg/dL 0.2-1.0 [facility] Calcium [Mass/Vol] 9.4 mg/dL 8.5-10.1 [facility] Chloride [Moles/Vol] 103 mmol/L 98-107 [facility] CO2 [Moles/Vol] 29.1 mmol/L 21.0-32.0 [facility] Creatinine [Mass/Vol] 0.57 mg/dL 0.55-1.02 [facility] Free T4 [Mass/Vol] 1.16 ng/dL 0.76-1.46 [facility] GFR/1.73 sq M.predicted MDRD (S/P/Bld) [Vol rate/Area] mL/min/{1.73_m2} >=60 [facility] Glucose [Mass/Vol] 87 mg/dL 74-106 [facility] Potassium [Moles/Vol] 3.9 mmol/L 3.5-5.1 [facility] Protein [Mass/Vol] 7.9 g/dL 6.4-8.2 [facility] Sodium [Moles/Vol] 139 mmol/L 136-145 [facility] TSH Qn 1.089 m[IU]/L 0.358-3.740 [facility] Urea nitrogen [Mass/Vol] 18.0 mg/dL 7.0-18.0 [facility] Urea nitrogen/Creatinine [Mass ratio] 31.6 mg/mg [facility] Laboratory - Hematology and Cell countson 12-25-2023 Immature granulocytes/100 WBC (Bld) 0.2 % 0.0-0.5 [facility] Leukocytes [#/volume] correc eleazar for nucleated erythrocytes in Blood by Automated counon 12-25-2023 WBC corrected for nucl RBC Auto (Bld) [#/Vol] 6.6 10 3/uL 4.0-11.0 [facility] Lymphocytes Auto (Bld) [#/Vo l]on 12-25-2023 Lymphocytes (Bld) [#/Vol] 2.0 10 3/uL 1.2-3.8 [facility] Lymphocytes/100 WBC Auto (Bl d)on 12-25-2023 Lymphocytes/100 WBC (Bld) 30.8 % 20.5-60.0 [facility] MCH Auto (RBC) [Entitic mass ]on 12-25-2023 MCH (RBC) [Entitic mass] 30.8 pg 26.7-34.0 [facility] MCHC Auto (RBC) [Mass/Vol]on 12-25-2023 MCHC (RBC) [Mass/Vol] 34.0 g/dL 29.9-35.2 [facility] MCV Auto (RBC) [Entitic vol] on 12-25-2023 MCV (RBC) [Entitic vol] 90.4 fL 81.0-99.0 [facility] Monocytes Auto (Bld) [#/Vol] on 12-25-2023 Monocytes (Bld) [#/Vol] 0.4 10 3/uL 0.3-0.8 [facility] Monocytes/100 WBC Auto (Bld) on 12-25-2023 Monocytes/100 WBC (Bld) 6.5 % 1.7-12.0 [facility] Neutrophils Auto (Bld) [#/Vo l]on 12-25-2023 Neutrophils (Bld) [#/Vol] 4.0 10 3/uL 1.4-6.5 [facility] Neutrophils/100 WBC Auto (Bl d)on 12-25-2023 Neutrophils/100 WBC (Bld) 59.8 % 43.0-75.0 [facility] No Panel Informationon 12-24 Eosinophils # (Auto) 0.1 10 3/uL 0.0-0.7 [facility] Immature Granulocyte # (Auto) 0.01 10 3/uL 0.00-0.03 [facility] Platelet mean volume Auto (B ld) [Entitic vol]on 12-25-2023 Platelet mean volume (Bld) [Entitic vol] 10.3 fL 9.5-13.5 [facility] Platelets Auto (Bld) [#/Vol] on 12-25-2023 Platelets (Bld) [#/Vol] 236 10 3/uL 150-450 [facility] RBC Auto (Bld) [#/Vol]on RBC (Bld) [#/Vol] 4.26 10 6/uL 4.20-5.40 [facility] Serum or plasma albumin/glob ulin mass ratioon 12-25-2023 Albumin/Globulin [Mass ratio] 0.9 {ratio} [facility] Serum or plasma anion gap de terminationon 12-25-2023 Anion gap [Moles/Vol] 10.8 mmol/L [facility] CBC AUTO DIFFon 11-01-2022 BASO # 0.1 103/ul Normal 0.0-0.1 [facility] Comment on above: Performed By: #### C BC #### [facility] [address] [address] [address] Jessie Navarrete Basophils/100 WBC (Bld) 1.3 % Normal 0.2-2.0 [facility] Comment on above: Performed By: #### C BC #### [facility] [address] [place] [address] Dr. Jessie Navarrete EO # 0.2 103/ul Normal 0.0-0.7 [facility] Comment on above: Performed By: #### C BC #### [facility] [address] [place] [address] Dr. Jessie Navarrete Eosinophils/100 WBC (Bld) 2.7 % Normal 0.9-7.0 [facility] Comment on above: Performed By: #### C BC #### [facility] [address] [place] [address] Dr. Jessie Navarrete Erythrocyte distribution width (RBC) [Ratio] 13.0 % Normal 11.0-15.0 [facility] Comment on above: Performed By: #### C BC #### [facility] [address] [place] [address] Dr. Jessie Navarrete Hematocrit (Bld) [Volume fraction] 39.2 % Normal 36.0-48.0 [facility] Comment on above: Performed By: #### C BC #### [facility] [address] [place] [address] Dr. Jessie Navarrete Hemoglobin (Bld) [Mass/Vol] 13.2 g/dL Normal 12.0-16.0 [facility] Comment on above: Performed By: #### C BC #### [facility] [address] [place] [address] Dr. Jessie Navarrete IG # 0.01 10e3/ul Normal 0.00-0.03 [facility] Comment on above: Performed By: #### C BC #### [facility] [address] [place] [address] Dr. Jessie Navarrete IG % 0.2 % Normal 0.0-0.5 [facility] Comment on above: Performed By: #### C BC #### [facility] [address] [place] [address] Dr. Jessie Navarrete LYMPH # 2.1 103/ul Normal 1.2-3.8 [facility] Comment on above: Performed By: #### C BC #### [facility] [address] [place] [address] Dr. Jessie Navarrete Lymphocytes/100 WBC (Bld) 33.4 % Normal 20.5-60.0 [facility] Comment on above: Performed By: #### C BC #### [facility] [address] [place] [address] Dr. Jessie Navarrete MANUAL DIFF REQ NO Normal [facility] Comment on above: Performed By: #### C BC #### [facility] [address] [place] [address] Dr. Jessie Navarrete MCH (RBC) [Entitic mass] 29.8 pg Normal 26.7-34.0 [facility] Comment on above: Performed By: #### C BC #### [facility] [address] [place] [address] Dr. Jessie Navarrete MCHC (RBC) [Mass/Vol] 33.7 g/dL Normal 29.9-35.2 [facility] Comment on above: Performed By: #### C BC #### [facility] [address] [place] [address] Dr. eJssie Navarrete MCV (RBC) [Entitic vol] 88.5 fL Normal 81.0-99.0 [facility] Comment on above: Performed By: #### C BC #### [facility] [address] [place] [address] Dr. Jessie Navarrete MONO # 0.5 103/ul Normal 0.3-0.8 [facility] Comment on above: Performed By: #### C BC #### [facility] [address] [place] [address] Dr. Jessie Navarrete Monocytes/100 WBC (Bld) 7.7 % Normal 1.7-12.0 [facility] Comment on above: Performed By: #### C BC #### [facility] [address] [place] [address] Dr. Jessie Navarrete NEUT # 3.4 103/ul Normal 1.4-6.5 [facility] Comment on above: Performed By: #### C BC #### [facility] [address] [place] [address] Dr. Jessie Navarrete Neutrophils/100 WBC (Bld) 54.7 % Normal 43.0-75.0 [facility] Comment on above: Performed By: #### C BC #### [facility] [address] [place] [address] Dr. Jessie Navarrete Platelet mean volume (Bld) [Entitic vol] 10.0 fL Normal 9.5-13.5 [facility] Comment on above: Performed By: #### C BC #### [facility] [address] [place] [address] Dr. Jessie Navarrete PLT 249 103/ul Normal 150-450 [facility] Comment on above: Performed By: #### C BC #### [facility] [address] [place] [address] Dr. Jessie Navarrete RBC 4.43 106/ul Normal 4.20-5.40 [facility] Comment on above: Performed By: #### C BC #### [facility] [address] [place] [address] Dr. Jessie Navarrete WBC 6.3 103/ul Normal 4.0-11.0 [facility] Comment on above: Performed By: #### C BC #### [facility] [address] [place] [address] Dr. Jessie Navarrete FREE T4on 11-01-2022 Free T4 [Mass/Vol] 1.06 ng/dL Normal 0.76-1.46 [facility] Comment on above: Performed By: #### F T4 #### [facility] [address] [place] [address] Dr. Jessie Navarrete GLYCOHEMOGLOBIN A1Con 2022 ADA RECOMMENDATION SEE BELOW Normal [facility] Comment on above: Result Comment: ADA RECOMMENDED LIMIT 4.0 - 6.0 ADA THERAPEUTIC TARGET < 7.0 ACTION SUGGESTED > 7.0 Performed By: #### D ATA1C #### [facility] [address] [place], [place] [address] Dr. Jessie Navarrete Glucose [Mass/Vol] 103 mg/dL Normal [facility] Comment on above: Performed By: #### D ATA1C #### [facility] [address] [place], [place] [address] Dr. Jessie Navarrete HbA1c (Bld) [Mass fraction] 5.2 % Normal 4.5-6.2 [facility] Comment on above: Performed By: #### D ATA1C #### [facility] [address] [place], [place] [address] Dr. Jessie Navarrete MG MAMM SCREEN 3D LINA CADon 11-01-2022 MG MAMM SCREEN 3D LINA CAD Patient: RENEE HAWK Exam Date: 11/01/2022 : 1955 Gender:F Ordering : DR AURORA FERGUSON M.D. Admission #: [id number] Family : Order #: [id number] CLICK HERE TO VIEW EXAM RADIOLOGY REPORT PROCEDURE: MAMMOGRAM SCREENING 3D BILATERAL CAD COMPARISON: MAMMO POST BIOPSY LEFT, 05/27/2018. MG MAMM SCREEN 3D LINA CAD, 01/08/2021. INDICATIONS: Screening mammography Calculator Name NCI Breast Cancer Risk Assessment Tool 5 Year Breast Cancer Risk 2.50% Lifetime Breast Cancer Risk 8.10% Personal Breast Cancer No Personal Ovarian Cancer No Treatments None Family Cancers Mother with stomach cancer at age 72. LOCATION: [facility] BREAST COMPOSITION: Scattered areas fibroglandular density. FINDINGS: DIAGNOSTIC CATEGORY 2--BENIGN FINDING. NO CHANGE FROM COMPARISON. Scattered benign-appearing nodules are present. Scattered benign-appearing calcifications are present. Scattered benign-appearing lymph nodes are present. RIGHT BREAST: No significant suspicious finding. LEFT BREAST: No significant suspicious finding. RECOMMENDATIONS: ROUTINE MAMMOGRAM AND CLINICAL EVALUATION IN 12 MONTHS. PLEASE NOTE: A NORMAL MAMMOGRAM DOES NOT EXCLUDE THE POSSIBILITY OF BREAST CANCER. A CLINICALLY SUSPICIOUS PALPABLE LUMP SHOULD BE BIOPSIED. Dictated by: Kong Rutherford MD on 11/01/2022 at 10:17 Approved by: Kong Rutherford MD on 11/01/2022 at 10:18 Normal [facility] PROF CHEM 8 (BAS METB)on Anion gap [Moles/Vol] 11.9 mmol/L Normal [facility] Comment on above: Performed By: #### B MP, TSH #### [facility] [address] [place] [address] [address] Jessie Navarrete Calcium [Mass/Vol] 9.5 mg/dL Normal 8.5-10.1 [facility] Comment on above: Performed By: #### B MP, TSH #### [facility] [address] [place] [address] [address] Jessie Navarrete Chloride [Moles/Vol] 104 mmol/L Normal 98-107 [facility] Comment on above: Performed By: #### B MP, TSH #### [facility] [address] [place] [address] [address] Jessie Navarrete CO2 [Moles/Vol] 28.7 mmol/L Normal 21.0-32.0 [facility] Comment on above: Performed By: #### B MP, TSH #### [facility] [address] [place] [address] [address] Jessie Navarrete Creatinine [Mass/Vol] 0.62 mg/dL Normal 0.55-1.02 [facility] Comment on above: Performed By: #### B MP, TSH #### [facility] [address] [place] [address] Dr. Jessie Navarrete EGFR-AF [place]IZ[place] >60 Normal >=60 [facility] Comment on above: Performed By: #### B MP, TSH #### [facility] [address] [place] [address] [address] Jessie Navarrete EGFR-NON AF [place]IZ[place] >60 Normal >=60 [facility] Comment on above: Performed By: #### B MP, TSH #### [facility] [address] [place] [address] [address] Jessie Navarrete Glucose [Mass/Vol] 95 mg/dL Normal 74-106 [facility] Comment on above: Performed By: #### B MP, TSH #### [facility] [address] [place] [address] [address] eJssie Navarrete Potassium [Moles/Vol] 3.6 mmol/L Normal 3.5-5.1 [facility] Comment on above: Performed By: #### B MP, TSH #### [facility] [address] [place] [address] [address] Jessie Navarrete Sodium [Moles/Vol] 141 mmol/L Normal 136-145 [facility] Comment on above: Performed By: #### B MP, TSH #### [facility] [address] [place] [address] [address] Jessie Navarrete Urea nitrogen [Mass/Vol] 13.0 mg/dL Normal 7.0-18.0 [facility] Comment on above: Performed By: #### B MP, TSH #### [facility] [address] [place] [address] [address] Jessie Navarrete Urea nitrogen/Creatinine [Mass ratio] 21.0 mg/mg Normal [facility] Comment on above: Performed By: #### B MP, TSH #### [facility] [address] [place] [address] [address] Jessie Navarrete TSHon 11-01-2022 TSH 2.408 uIU/mL Normal 0.358-3.740 [facility] Comment on above: Performed By: #### B MP, TSH #### [facility] [address] [place] [address] [address] Jessie Navarrete IntraOperative Documentson 1 IntraOperative Documents [id number]#1 .00CD:127 Normal [facility] Coding Summary.on 03-13-2022 Coding Summary. CD:[id number] G h0bWw+PGhlYWQ+BR7FBWF xJ28awCOclQ6FG4eXPX2X POBIGNNCUH1GGB3mnYN5J QpaX5KfmfSo LakfuQNnUG68RCe5NLM9b JejWBnzzP9vsPJdF0h7Jc JbLS02mN17HFjmPQFnCuP 3LjZpbjsgbWFy X6knMkYohOEnPdc+PHRhY mxlIHdpZHRoPScxMDAlJy XyfUtlAK8rJi6cFREhXVV vbGxhcHNlOiBj t9anXVAnQImsPC3unFhgL 3DrbUD6ECPfs0z9Qs20iF I+KVOgLAN6wOaqCWynk61 0CtDlt1lkSVS4 xNVuQYxsWBI9J18sl9I6S EXqMEPfQIX9aWK6aS5kyQ lffcllV4EpeZWsBzN1OEW 7kURciS9yaMht xpjjnE3gKmb+X04VMA2NW NVHJA9CDyd6J8UqBixahB I+KD90JHGwXE89jYTovTH ke8hfiJi0IfCf QFWoQMU3jFerYCbju4OjC YOtD43iwQEem7O3FQMgoW vszSCgOaArqSD8xD7pWBi scijuh3kqvhqj Rmsvl3xdhc25vZ03X48yM CdkOXGvGEV0SBScHVRaoV itwj5mgF0kCi9+MCaum6o pd9zwaWf9WaId EISqvyIsbNzfLTU6u8UoR o41U7LxsXjxl8JuAwc8ih 74mAIkw2R0rCY3BZydAJW wrK2qRRjbEaG6 EFObTwWehU44pRTrCCgmF w9cuGcwkIxvRD1xZFZggr aaVWQtrJ1lMYGweFCosYs vJI0pYVYibphe r507RsDeERJ3CDQeqQRsW 1TooB8rVhBaMTRtFNFtL7 PujUNcCCjbA922BZhzOiG 0TNDretItE8Wc MBAwsDzjMqO2a0A6Fq9Vz 4DtknmjWOO4TMdmSKOgXn N2VcTkQiJ0Q8DdHzl4ZMI cjLqoQJ4oM6Hl ETAisongditrvEZ1ARXkM SZljK60cNSqASogUp5jp9 B1q955YIYuQIYkaE15Cy8 udDogMTBwdCBU sL4yvscrf3boicxrEdFtK EKqTAj9MZt7PAUtrCkdZc ZnZZL9ZvW0TSX3kRUryT6 ooJusdeombW1h Oyc+M61csG4lOCD1WGT6h bglTGTiyyLmHL34NM75N0 RyPjwvdGFibGU+PGRpdiB uqVqgDG2sCzBr w4awa7JdEBkcJ7JrFVRkI BcuXvz7AMFfINY3aAN1tZ 9uDBJlAQkmj8C6cDI0D1N qajTcqt8ql7zm XDPnJRmuZ93edZEtn5Z5Z FLnmZO5NBKvbWwvPaDruZ 93Oyc+KXDrdFkzc6NhSpt si8dzz5uksEc5 QnBlZFPrajOssBddOYK7q 8LyFh40G13gBXwsNGZdMI HvILEmCIInwCcsss1pvD1 wIi8+PGNvbCB3 zBU4bM1sXYMmBwU2MYpqA 429EtWsfZQbBoobh9prg9 akbSw7UhAiPAYtzgCvzZl gAXY9y2JaXk01 V40hTEodAAZcRHGjYHIqM VNlaLeggi4liH2kKq8+PC 9td6ythq58qW98gRC+PHR hXQH7bYojMYfj HGFbjK7gRJcyUnE4SHTqI xJmiW69aNAqRScrIa5ubG hwrCrwPQ5tSXFoqtjzv34 9AiMtc2syXTCm iJXeSUidXJA7V94pr9S0T AWpESOeBML0sRN6oV9vuQ lnbjogbGVmdDsgdmVydGl eTYitJOgwL928 IHRvcDsnPlBhdGllbnQgT oDxWHh5C7ZmZxf9UJBuxB kmGG5arPGcNIjlOe2crQn bmSvlTS0wXLNa lmtmx332NwLau4evIJJvb BDyRCamTHJ1X16jk7Z5GM IvSFKmENE8jOA2oE2kcHn nbjogbGVmdDsg toYaiQmmGDhwTBijS247P HRvcDsnPkJpcnRoIERhdG M5ZE81MD74kKOpk3J3aJD 5M6DtYFZdzvbd oewciKR5UZIuSKXscT41I m2jwVnhZz6xURKzBIF6OP ArqBThM6OeqT4iOeFeJKF tYXJfE3OfxFLl BNcaQ949BCoxZnV8ZLLqj mBdN3PoVBPucBgyGnG8b5 V1Dk5TM1S4JN83HF67xQT yd6S3uQV0J8Zz WBLxobigvsajdUH5GWOtV PJckM84Ik0geTjtDo9dSL VeMZJ8EPFunPFfC6XrnN9 yOiAjMDAwMDAw I5TidLUcRHhjO591SYbrC sG5CDRrzrAqQ0OgATOakN wtKiH9r4S4Tu4NOSq1ZP5 9UC56pYUbo2M9 hCJ4F0AwNIIzgiftelpuh JY8DVKnVQJefM72Wn7pjU klTe0dUQUhXXK4ATZgvAW dX3SagC8vPhAu WCMpNHZhD2DfcXBmVLthT 561FKtuHwH2XUTveuAlX4 OlXLGiyTxiUyU8g4B5Xn9 ZEFZpIT59ROY3 cEK2WB45JM81A3PrKconp GFibGU+PHRhYmxlIHdpZH RoPScxMDAlJyBzdHlsZT0 gDi4zCAJlDTUm uAansICyYgMtq8oxBCGaM GdySW4eoPivU8NubZC8JA Ved8c1Wj36H25bF3VfgJG +POBswSP1cMI0 gN6wUfJrWrK2OQtlJ383E vOmlFEvNprpq6pcp0oexU r6OtJ0HQEsrdYfpAayNAJ 5m2OuFi96K75l IHdpZHRoPSIxNSUiIHZhb Eslzy0bqH6wBn4+PGNvbC E8tYO9lB5aFoHaHhT4AJh yD656PcUpiRLd Zbjvs7ncw2nrcQw3NnPcZ QJficFthIewZRC8l0OyXf 94N8JytVlhz1SbTyn9lp0 0dIXuh9C4rWP8 V3HpAAYpfptebMFexFddQ N0nWGYaraavFGMlpP5vFE PdM1v0GwIwNyE3ISfwW0O vrcX1PYInoIPc MDpjTBN2H42zx7P3ETOkB SKbJNW4yLG8tJ4txNltpe ogbGVmdDsgdmVydGljYWw yFGfhU996SYDl vRtiQMNblD8rZKFddRFxa TgqPF2hBMIlpyckCcSIND IGBAIFRY3LOBtdrBA+PHR oXLM0wIazDGai GVNcyV5cNSWlL9v4WpHbR hJ0SFqwB2XkVHBlmlxqTa 40bC4bQaEvQcT4AEqiI0Y klgA1HKBklZCk VHyjUAH7N42xx8X9JPOpS FMkNSK1dFO3yY1pbLfmhr ogbGVmdDsgdmVydGljYWw nWBowB093XNZi uHedMjAjSoI2DgU7SRC4L 4UjDyb8FBJscVfgPY6mpL OcIYeyVs5sxFxrsOyyXR0 wNTBpbjtwYWRk iA5dGDVynAPxrOkgCW2uN QWygowau337EtFcNJD3SJ ZieGZjX2QnmV0wHdHvCSC vFWEoW1TstBRg TKaeZ842BRlyHzT1TJYvm zRcK8WaPCAjaUdaUtD0o1 A6Kq62SbMEZVIqgcxanEA +GIFnSBU5wIiq SXykHPGtwY5iTRVyT9j5O bDdUoD9OXiwC9YpRFTzpl jbKp06dJ5fTdCgRkH3EGd fC3VdorY6FTFs iXFwDZyfHDV9E52sn3J1X YNeKKYjYJE3tJD7sW9cgQ lnbjogbGVmdDsgdmVydGl sKGwxFAkiH502 IHRvcDsnPkZlbWFsZTwvd GQ+GXZcPLS4tJcpHTtiEL XsfS3aEZFuR0d0DzRhUqW 6FBexK7JuKBJa ztxkAe79bZ6qMlTyAkI3G PwkP5CddpT4MSVxgXWzED bmOYV8J88il9K5BPVzCCP yJYJ6aCD9eC4o bGlnbjogbGVmdDsgdmVyd HicRErnBIobV173UIUnvS dlQpJdGfNaMLAnyaktH1T qQTYHQSndS3Kd Q9NnqKjheFF+OU57kd12G 2QaHrbwPod0SXKyAHQ4dX B6dF1wSDAzSLpxu2B6hWY 7Q4MqtfQrjr8b y5faFOPuTYthG09lyPMjv 6X9FOHxxBT6WZDiuZmyXt KdtI82Mgf+ERQbpBopp3Q yWdcgo5zov4ku oUc1PgFaLKMjoqExsNkmO QA2x9LqZi36X62pVWayGP RoPSIzMCUiIHZhbGlnbj0 ptM9mOn8+PGNv eMG3gHD4dV4bDhItCiF0I BjkK020BhLyaVJoJipju9 pxy2cezZu5XmOjVVDatiN paSlpQXL6j9Cl Sc54S7MbwFmfj4HpBzz3u y99qFIfs5Q6xBG7R6NzYW VbivekxGPksFxsWX6vLZW rpryfEBKwtC2y JNRaD2p5OoQqIuE1SUblN 1OoiuU2ADVnwFCaEJEraV KVlZ2qxirdr5yqnwgtBtX xFJMoXMv5NBo1 RPMidPphLaJzXHO2WvV8L LM1gSFyzE0wiUalnikobB 9wOyc+OBx9t2yoyNZyHS3 fiGR6EN19OK41 qFCqi6O0kCW8J3DjAKEmv yyjccbozOX3AIJyXJNsxG 45Qb2iqCjpWa2dMNDtTHZ 0PPKrhWVeD5Fy mJ0aFlBeECFdWEOwK7Mha ILpHLndM439LKoxKjY6JL GeuuPcJ4PrVTIukSixVfK 3o0J0Bz6KCY17 XJ37TR16bJRis0C3jOL0W 3DbEFZruslgholjoWQ6FP EbDMGwnA04Jz9hyVqvBg9 hKWViXAM3PJKi yCZoZ7LpzZ2gMsFwXROwG RPtQ7XtiCVnDEnwY790BV udRyS9UCAfgdIrP3GjZIP oaFjlUyS0d5T0 Eq6PVl48TG31UP53aBRxl 8F9nTA1W9HbEFPcpwzonz tddSD2BDVzOGEceE58Dd2 zdRquCr0jSLHp FXR3LOIlyVDzZ3LdoQ4sI iLjYSGoHRCdC2MxoKIcWN ahR675PIeoZkJ1QNAqokQ zC0KnWTWwjKix SyO8c7O7Za4FMYmwjpj3B 3RkPjwvdHI+WD30TZVsDB 54fTQkgRTks2uqmIu0UoI eKSUyQVI5cTez PSdi (more content not included)... Normal [facility] Main OR Intraoperative Recor don 03-13-2022 Main OR Intraoperative Record IntraOp Document Type FT Summary Primary Physician: Beatriz Lance MD Finalized Date/Time: 03/13/22 14:16:39 Pt. Name: RENEE HAWK Umm/Sex: 1955 Female Med Rec #: [id number] Physician: Sana LAMAS, Beatriz Haas Financial #: [id number] Pt. Type: A Room/Bed: [facility] Admit/Disch: 03/07/22 08:29:15 - 03/07/22 12:50:00 Institution: Case Times FT Entry 1 Patient Times In Room 03/07/22 10:56:00 Out Room 03/07/22 11:19:00 Procedure Times Start 03/07/22 11:05:00 Stop 03/07/22 11:10:00 Anesthesia Times Start 03/07/22 10:56:00 Stop 03/07/22 11:19:00 Last Modified By: Pili Mann RN 03/07/22 11:19:49 General Comments: 03/13/22 Chart opened to review and send charges [facility]oth CSFA Case Attendance FT Entry 1 Entry 2 Entry 3 Case Attendee [place] ILAN, Tobin Lance MD, Beatriz Parker RN, Mike Terrazas Role Performed NIGHT NURSE Surgeon - Primary Rn Lab - Primary Time In 03/07/22 10:56:00 03/07/22 11:02:00 03/07/22 10:56:00 Time Out 03/07/22 11:19:00 03/07/22 11:11:00 03/07/22 11:19:00 Procedure MYRINGOTOMY W/ MYRINGOTOMY W/ MYRINGOTOMY W/ INSERTION OF INSERTION OF INSERTION OF TUBES(Left), NASAL TUBES(Left), NASAL TUBES(Left), NASAL ENDOSCOPY(Left) ENDOSCOPY(Left) ENDOSCOPY(Left) Comments DR SCHMITT SUPERVISING Last Modified By: Johnathan RN, Pili Mann RN, Pili Davila RN 03/07/22 11:19:51 03/07/22 11:19:51 03/07/22 11:19:51 Entry 4 Entry 5 Entry 6 Case Attendee Austin Flynn RN, Pili Del Cid ACCOUNTS RECEIVABLE BOOKKEEPER, Lorri Parks Role Performed Rn Lab - Primary Rn Lab - Primary Scrub - Primary Time In 03/07/22 10:56:00 03/07/22 10:56:00 03/07/22 10:56:00 Time Out 03/07/22 11:19:00 03/07/22 11:19:00 03/07/22 11:19:00 Procedure MYRINGOTOMY W/ MYRINGOTOMY W/ MYRINGOTOMY W/ INSERTION OF INSERTION OF INSERTION OF TUBES(Left), NASAL TUBES(Left), NASAL TUBES(Left), NASAL ENDOSCOPY(Left) ENDOSCOPY(Left) ENDOSCOPY(Left) Comments ORIENTATION Last Modified By: Johnathan RN, Pili Mann RN, Pili Mann RN, Pili Victor 03/07/22 11:19:51 03/07/22 11:19:51 03/07/22 11:19:51 Entry 7 Entry 8 Case Attendee Nnamdi RUSH, Marion Isaac RN, Naye Role Performed Scrub - Primary Rn Lab - Relief Time In 03/07/22 10:56:00 03/07/22 11:17:00 Time Out 03/07/22 11:19:00 03/07/22 11:19:00 Procedure MYRINGOTOMY W/ MYRINGOTOMY W/ INSERTION OF INSERTION OF TUBES(Left), NASAL TUBES(Left), NASAL ENDOSCOPY(Left) ENDOSCOPY(Left) Comments ORIENTATION Last Modified By: Johnathan RN, Pili Mann RN, Pili Victor 03/07/22 11:19:51 03/07/22 11:19:51 Perioperative Protocols FT Pre-Care Text: Implements protective measures prior to operative or invasive procedure, confirms identity before the operative or invasive procedure, verifies operative procedure, surgical site, and laterality Entry 1 Procedure(s) MYRINGOTOMY W/ Patient Identity Birthday, ID Band INSERTION OF Verified (select at Check, Patient TUBES(Left), NASAL least 2): Participation ENDOSCOPY(Left) Consents / H and P Anesthesia Consent, Operative Site Present Verified HandP, Surgery/Procedure Marking Verified Consent Surgical Site Yes Laterality Verified Yes Verified Procedure Verified Yes Correct Patient Yes Position Verified Availability Equipment, Medication Prep Dry n/a Verified (If Applicable) PreOp Antibiotic No Time Out Tobin Bull CRNA, Given Participants Sana LAMAS, Keith Jimenez RN, Gee Callahan Terry T, Coy RN, Nehemias Helm CST, Nnamdi Tobar CST, Marion Victor Time Out Complete 03/07/22 11:04:00 Outcomes Met? Yes Last Modified By: Plii Mann RN 03/07/22 11:05:03 Post-Care Text: The patient is free from signs and symptoms of injury caused by extraneous objects Allergy Information FT Pre-Care Text: Verifies allergies Entry 1 Allergies Reviewed? Yes Allergies Reviewed Self/Patient With Outcomes Met? Yes Last Modified By: Pili Mann RN 03/07/22 10:54:52 Post-Care Text: The patient received appropriate medication(s) safely administered during the perioperative period Surgical Procedures FT Entry 1 Entry 2 Procedure Description Procedure MYRINGOTOMY W/ NASAL ENDOSCOPY INSERTION OF TUBES Modifiers Left Left Surgeon Description LEFT MYRINGOTOMY WITH LEFT MYRINGOTOMY WITH INSERTION OF TUBES, INSERTION OF TUBES, NASAL ENDOSCOPY NASAL ENDOSCOPY Primary Procedure Yes No Primary Surgeon Sana LAMAS, Beatriz Lance MD, Beatriz Haas Start 03/07/22 11:05:00 03/07/22 11:05:00 Stop 03/07/22 11:10:00 03/07/22 11:10:00 Anesthesia Type General General Surgical Service ENT ENT Wound Class 2 - Clean-Contaminated 2 - Clean-Contaminated Last Modified By: Pili Mann RN, RN, Emily A 03/07/22 11:10:53 03/07/22 11:10:53 General Case Data FT Pre-Care Text: Classifies surgical wound, implements aseptic technique, initiates traffic control Entry 1 Case Information OR OR 2 FT Case Level Level 3 Wound Class 2 - Clean-Contaminated Specialty ENT ASA Class 2 Preop Charleen (more content not included)... [facility] Postoperative Documentson Postoperative Documents [id number] #1.00CD:127 [facility] Consent for Anesthesiaon Consent for Anesthesia [id number] [id number]#1 .00CD:127 [facility] Discharge Instructionson Discharge Instructions [id number] [id number]#1 .00CD:127 [facility] IntraOperative Documentson 0 9-30-2022 IntraOperative Documents [id number]#1 .00CD:127 Normal [facility] IntraOperative Documents [id number]#1 .00CD:127 [facility] IntraOperative Documents [id number]#1 .00CD:127 [facility] Outside Recordson 03-08-2022 Outside Records [id number]#1 .00CD:127 Normal [facility] Preoperative Documentson Preoperative Documents [id number] [id number]#1 .00CD:127 [facility] Preoperative Documents [id number] [id number]#1 .00CD:127 [facility] Consent for Treatmenton 02-08 Consent for Treatment [id number]#1 .00CD:127 [facility] H&P Updateon 03-07-2022 H&P Update [id number]# 1.00CD:127 [facility] Inpatient Patient Summaryon 03-07-2022 Inpatient Patient Summary [place] [id number] [facility] Clinical Discharge Instructions PERSON INFORMATION Name: RENEE HAWK [facility]ANS Admitting Physician: Beatriz Lance MD Attending Physician: Beatriz Lance MD PCP: AURORA FERGUSON MD Discharge Diagnosis: ETD (eustachian tube dysfunction) Comment: PATIENT EDUCATION INFORMATION Instructions: Post Op Patient Instructions - FT (CUSTOM) Medication Leaflets: Follow up: With: Address: When: Beatriz Lance Comments: One month MEDICATION LIST Medications to Continue with No Changes Other Medications cholecalciferol (Vitamin D3 1000 intl units oral capsule) 1 Capsules By Mouth every day. levothyroxine (levothyroxine 75 mcg (0.075 mg) Tab) 1 Tablets. zinc sulfate (Zinc 140 mg (as elemental zinc 50 mg) oral tablet) 1 Tablets By Mouth every day. Comment: [facility] Main OR PACU I Recordon 02-08 Main OR PACU I Record PACU Phase I Docum ent Type FT Summary Primary Physician: Beatriz Lance MD Finalized Date/Time: 03/07/22 12:07:08 Pt. Name: RENEE HAWK/Sex: 1955 Female Med Rec #: [id number] Physician: Beatriz Lance MD Financial #: [id number] Pt. Type: A Room/Bed: [facility] Admit/Disch: 03/07/22 08:29:15 - Institution: Case Times PACU I FT Pre-Care Text: Identifies barriers to communication and implements measures to provide psychological support Develops individualized plan of care, and ensures continuity of care Maintains patient's dignity and privacy, and maintains patient confidentiality Identifies and reports philosophical, cultural, and spiritual beliefs and values Identifies individual values and wishes concerning care Implements aseptic technique, and administers prescribed antibiotic therapy and immunizing agents as ordered Evaluates postoperative tissue perfusion Implements thermoregulation measures, and monitors body temperature Evaluates postoperative respiratory status Evaluates postoperative cardiac status Evaluates postoperative neurological status Assesses pain control, collaborated in initiating patient-controlled analgesia and implements alternative methods of pain control Verifies allergies, administers prescribed medications and solutions, evaluates response to medications Entry 1 In PACU I 03/07/22 11:20:00 Discharge from PACU 03/07/22 11:50:00 I Outcomes Met? Yes Last Modified By: KATELIN DONNELLY RN 03/07/22 12:06:53 Post-Care Text: The patient demonstrates knowledge of the expected response to the operative or invasive procedure The patient's care is consistent with the individualized perioperative plan of care The patient's right to privacy is maintained The patient's value system, lifestyle, ethnicity, and culture are considered, respected, and incorporated into the perioperative plan of care The patient participates in decisions affecting his or her perioperative plan of care The patient is free from signs and symptoms of infection The patient has wound/tissue perfusion consistent with or improved from baseline levels established preoperatively The patient is at or returning to normothermia at the conclusion of the immediate postoperative period The patient's respiratory function is consistent with or improved from baseline levels established preoperatively The patient's cardiovascular status is consistent with or improved from baseline levels established preoperatively The patient's cardiovascular status is consistent with or improved from baseline levels established preoperatively The patient demonstrates and/or reports adequate pain control throughout the perioperative period The patient received appropriate medication(s), safely administered during the perioperative period Acuity Level PACU I FT Entry 1 Start Time 03/07/22 11:20:00 Stop Time 03/07/22 11:50:00 Acuity Level Acuity Level I Last Modified By: KATELIN DONNELLY RN 03/07/22 12:07:04 Finalized By: KATELIN DONNELLY RN Document Signatures Signed By: KATELIN DONNELLY RN 03/07/22 12:07 Normal [facility] Main OR PACU II [facility] Main OR PACU II Record PACU Phase II Document Type FT Summary Primary Physician: Beatriz Lance MD Finalized Date/Time: 03/07/22 13:19:00 Pt. Name: RENEE HAWK/Sex: 1955 Female Med Rec #: [id number] Physician: Beatriz Lance MD Financial #: [id number] Pt. Type: A Room/Bed: [place] [address] Admit/Disch: 03/07/22 08:29:15 - Institution: Case Times PACU II FT Pre-Care Text: Identifies barriers to communication and implements measures to provide psychological support and determines knowledge level Develops individualized plan of care, and ensures continuity of care Maintains patient's dignity and privacy, and maintains patient confidentiality Identifies and reports philosophical, cultural, and spiritual beliefs and values Identifies individual values and wishes concerning care administers prescribed antibiotic therapy and immunizing agents as ordered, Evaluates postoperative tissue perfusion Implements thermoregulation measures, and monitors body temperature Evaluates postoperative respiratory status Evaluates postoperative cardiac status Evaluates postoperative neurological status Assesses pain control, collaborated in initiating patient-controlled analgesia and implements alternative methods of pain control Verifies allergies, administers prescribed medications and solutions, evaluates response to medications Entry 1 In PACU II 03/07/22 11:50:00 Discharge from PACU 03/07/22 12:50:00 II Outcomes Met? Yes Last Modified By: Naomi Dubon RN 03/07/22 13:18:58 Post-Care Text: The patient demonstrates knowledge of the expected response to the operative or invasive procedure The patient's care is consistent with the individualized perioperative plan of care The patient's right to privacy is maintained The patient's value system, lifestyle, ethnicity, and culture are considered, respected, and incorporated into the perioperative plan of care The patient participates in decisions affecting his or her perioperative plan of care. The patient is free from signs and symptoms of infection The patient has wound/tissue perfusion consistent with or improved from baseline levels established preoperatively The patient is at or returning to normothermia at the conclusion of the immediate postoperative period The patient's respiratory function is consistent with or improved from baseline levels established preoperatively The patient's cardiovascular status is consistent with or improved from baseline levels established preoperatively The patient's neurological status is consistent with or improved from baseline levels established preoperatively The patient demonstrates and/or reports adequate pain control throughout the perioperative period The patient received appropriate medication(s), safely administered during the perioperative period Finalized By: Naomi Dubon RN Document Signatures Signed By: Naomi Dubon RN 03/07/22 13:19 Normal [facility] Main OR Preoperative Recordo n 03-07-2022 Main OR Preoperative Record PreOp Document Type FT Summary Primary Physician: Beatriz Lance MD Finalized Date/Time: 03/07/22 11:00:56 Pt. Name: RENEE HAWK/Sex: 1955 Female Med Rec #: [id number] Physician: Beatriz Lance MD Financial #: [id number] Pt. Type: A Room/Bed: [place] [address] Admit/Disch: 03/07/22 08:29:15 - Institution: Case Times PreOp FT Pre-Care Text: Verifies consent for planned procedure, identifies individual values and wishes concerning care, includes family members in perioperative teaching Entry 1 Patient Times. In Pre Surgery 03/07/22 08:35:00 Out Pre Surgery 03/07/22 10:54:00 Outcomes Met? Yes Last Modified By: Pili Mann RN 03/07/22 11:00:50 Post-Care Text: The patient participates in decisions affecting his or her perioperative plan of care Finalized By: Pili Mann RN Document Signatures Signed By: Pili Mann RN 03/07/22 11:00 Normal [facility] Monitor Recordon 03-07-2022 Monitor Record [id number]# 1.00CD:127 Normal [facility] Monitor Record [id number]# 1.00CD:127 Normal [facility] Operative Reporton Operative Report SURGERY DATE: 03/07/2022 PREOPERATIVE DIAGNOSIS: Left eustachian tube dysfunction and otitis media with effusion POSTOPERATIVE DIAGNOSIS: Left eustachian tube dysfunction and otitis media with effusion OPERATION: Left myringotomy and tube with microdissection placement of a T tube and a nasal endoscopy ANESTHESIA: General endotracheal COMPLICATIONS: None FINDINGS: Left middle ear dry and no nasopharyngeal pathology evident. INDICATIONS: This 66-year-old woman presented with left mixed hearing loss and occupational therapy with effusion. She was brought to the Operating Room for a T tube as well as nasal endoscopy to ensure there is no carcinoma or lymphoma in the nasopharynx that caused her middle ear disease. PROCEDURE: The patient identified in the Holding Area and taken back to the Operating Room where she was placed in a supine position. After the induction of general endotracheal anesthesia, an Afrin-soaked pledget was placed in the left side of the nose and then the left ear was approached with the otomicroscope. Cerumen was cleaned from the canal using a cerumen curette and an anterior radial myringotomy was performed. A modified Coto T tube was folded, inserted through the myringotomy and opened in the middle ear using microdissection. Attention was then turned to the nose and the Afrin-soaked pledget was removed and a 0 degree 4 mm nasal endoscope was used to examine the nasopharynx. There were no abnormalities evident. The patient was then awakened and taken to the Recovery Room in good condition. Sherri Jimenez Jr. Dictated: 03/07/2022 [id number] Transcribed: 03/07/2022 cc:Aurora Ferguson M.D. [facility] Comment on above: Result Comment: Elec tronically Signed By: Beatriz Lance MD\.br\Date and Time Signed: 03/07/22 11:55 EDT Outpatient Surgery Discharge Instructionon 03-07-2022 Outpatient Surgery Discharge Instruction [place] [id number] Patient Discharge Instructions PERSON INFORMATION Name: RENEE HAWK Date of : 1955 Current Date: 03/07/2022 11:41:54 PHYSICIANS Admitting Physician: Beatriz Lance MD Discharge Diagnosis: ETD (eustachian tube dysfunction) CARINERENEE has been given the following list of follow-up instructions, prescriptions, and patient education materials: PATIENT FOLLOW-UP INFORMATION Diet: Regular Discharge Activity: Expect mild pain, Expect minimal amount of drainage and/or bleeding, Activity as tolerated Additional Instructions: Keep left ear dry 2 weeks IF UNABLE TO CONTACT YOUR PHYSICIAN AND YOU FEEL IT IS AN EMERGENCY, GO TO THE NEAREST EMERGENCY ROOM OR CALL 911 I, RENEE HAWK, have received the attached patient education materials/instruction s and have verbalized understanding: May we do a follow up call? Yes No I was present when discharge instructions were given Patient Signature Date Clinican/Nurse Signature Date Follow up: With: Address: When: Beatriz Lance Comments: One month Pharmacy Information: You may receive a survey from [employer] asking you to rate your care experience. Your feedback is important and will help us understand what we do well and how we can improve the quality of care we provide to you, your loved ones and our community. It?s an honor to serve you. Thank you for choosing [facility] HERE ARE THE MEDICATION CHANGES THAT OCCURRED DURING YOUR HOSPITAL STAY Medications to Continue with No Changes Other Medications cholecalciferol (Vitamin D3 1000 intl units oral capsule) 1 Capsules By Mouth every day. levothyroxine (levothyroxine 75 mcg (0.075 mg) Tab) 1 Tablets. zinc sulfate (Zinc 140 mg (as elemental zinc 50 mg) oral tablet) 1 Tablets By Mouth every day. PATIENT EDUCATION INFORMATION Instructions: Medication Leaflets: Normal [facility] Patient Education - Texton 0 03-07-2022 Patient Education - Text Normal [facility] Progress Note-Physicianon Progress Note-Physician Patient: RENEE HAWK Age: 66 years Sex: Female : 1955 Associated Diagnoses: None Author: Aroldo Guerrero DO Preoperative Information Patient and/or family denies any personal or family hx of difficulty/ problems with anesthesia. NPO guidelines met. Re-eval prior to induction: Inital eval reviewed: No significant interval change. Anesthesia results Review of Systems Constitutional: Negative except as documented in history of present illness. Cardiovascular: cardiovascular risk assessment performed., active, +1FOS. Respiratory: breathing feels at baseline. Immunologic: denies current respiratory illness. Neurologic: A&O. Health Status Allergies: Allergic Reactions (Selected) Severity Not Documented Penicillin- Rash., Allergies (1) Active Reaction penicillin rash Current medications: (Selected) Inpatient Medications Ordered Lactated Ringers IV Mariia 1000 mL 1,000 mL: 1,000 mL, IV, 150 mL/hr, Routine, Start date 03/07/22 8:30:00 EDT, 6.7 hour(s), Total volume (mL): 1,000, 79.7 kg, 1.92, m2 Documented Medications Documented Vitamin D3 1000 intl units oral capsule: 25 mcg = 1 cap(s), Oral, Daily, Prophylaxis Zinc 140 mg (as elemental zinc 50 mg) oral tablet: 140 mg = 1 tab(s), Oral, Daily, Prophylaxis levothyroxine 75 mcg (0.075 mg) Tab: 75 mcg = 1 tab(s), Refills(s) 0, Thyroid, Medications (1) Active Scheduled: (0) Continuous: (1) Lactated Ringers 1,000 mL 1,000 mL, IV, 150 mL/hr PRN: (0) Problem list: No problem items selected or recorded., No qualifying data available Histories Past Medical History: No active or resolved past medical history items have been selected or recorded. Family History: No family history items have been selected or recorded. Procedure history: Biopsy of breast ([id number]). Social History Social & Psychosocial Habits Alcohol 03/01/2022 Use: Current Frequency: 1-2 times per year Substance Abuse 03/01/2022 Risk Assessment: Denies Substance Abuse Tobacco 03/01/2022 Risk Assessment: Denies Tobacco Use . Physical Examination Vital Signs 03/07/2022 8:45 EDT Heart Rate Monitored 65 bpm Systolic Blood Pressure 117 mmHg Diastolic Blood Pressure 69 mmHg Blood Pressure Location Left arm Mean Arterial Pressure, Monitered 85 mmHg 03/07/2022 8:45 EDT Apical Heart Rate 62 bpm 03/07/2022 8:44 EDT Temperature Oral 36.6 DegC Heart Rate Monitored 65 bpm Respiratory Rate 18 br/min Systolic Blood Pressure 124 mmHg Diastolic Blood Pressure 69 mmHg Blood Pressure Location Right arm Mean Arterial Pressure, Monitered 87 mmHg SpO2 98 % Vital Signs (last 24 hrs) Last Charted Temp Oral 36.6 DegC (MAR 07 08:44) Heart Rate Apical 62 bpm (MAR 07 08:45) SBP 117 mmHg (SEP 29 08:45) DBP 69 mmHg (SEP 29 08:45) SpO2 98 % (SEP 29 08:44) Pain assessment: Pain Assessment 03/07/2022 8:44 EDT Preliminary Pain Scale 0 03/07/2022 8:44 EDT Pain Symptoms Self Report No, able to self report Patient Preferred Pain Tool Numeric rating Numeric Pain Scale 0 = No pain Numeric Pain Score 0 . Airway: Mallampati classification: II (soft palate, fauces, uvula visible). Respiratory: Adequate air exchange.. Cardiovascular: Regular rhythm. Neurologic: alert, conversant, interactive. Review / Management Results review: Lab results 03/01/2022 10:02 EDT WBC 5.1 E9/L RBC 4.4 E12/L HGB 13.2 gm/dL Hct 38.5 % MCV 87.6 fL MCH 30.1 pg MCHC 34.4 gm/dL RDW 14.0 % Platelet 236.0 E9/L MPV 8.6 fL Neutro Auto 53.0 % Lymph Auto 34.6 % Gentry Auto 7.8 % Eos Auto 2.5 % Basophil Auto 2.1 % HI Neutro Absolute 2.7 E9/L Lymph Absolute 1.8 E9/L Gentry Absolute 0.4 E9/L Eos Absolute 0.1 E9/L Basophil Absolute 0.1 E9/L Glucose Random 95 mg/dL BUN 14 mg/dL Creatinine 0.6 mg/dL eGFR >60 mL/min/1.73 m2 eGFR AA >60 mL/min/1.73 m2 Sodium Lvl 138 mmol/L Potassium Lvl 4.0 mmol/L Chloride 105 mmol/L CO2 27 mmol/L AGAP 10 mEq/L , No qualifying data available . Condition: Stable. Plan [place] [employer]esthesi[employer] (ASA) physical status classification: Class II. Anesthetic Preoperative Plan Anesthesia: General. . Anesthetic plan, risks, benefits, and alternatives discussed with the patient and/or family. Patient verbalized understanding. Anesthesia risks, benefits, alternatives discussed with patient and/or family/guardians. Risks discussed including but not limited to risks of nerve damage, injury, bleeding requiring transfusion, postop pulmonary complications, nausea, vomiting, sore throat, dental/oral injury, increase/decrease in HR or blood pressure, hoarseness, muscle or joint pain, heart complications discussed. Pt aware and desires to proceed. Normal [facility] Comment on above: Result Comment: Elec tronically Signed By: Aroldo Guerrero DO\Date and Time Signed: 03/07/22 10:56 EDT Coding Summary.on 03-06-2022 Coding Summary. [id number] G h0bWw+PGhlYWQ+JM4IZMR yN96zyNThjY3IW2xIJF4Z BUABRAWOVD3PTM6imXO0W FuvJ8FmduJv FiaywLKmZI39NIm0OOK4u XgmODugrY8rwMNrD0d7Ce UqWW00lZ32JWwhJJBzEbV 3LjZpbjsgbWFy B3bwOtSclVJpEen+PHRhY mxlIHdpZHRoPScxMDAlJy QgpMqwGG4gMv2yTVDgYBZ vbGxhcHNlOiBj b4viNQPdJHgeTD2obEchP 5ZbaOT1JZYpe9x5Dx24sW I+PCYjSEC1sHwqZFyiv87 4YkQbg6ajZNZ3 tXQlFGvkJRG6G25hf3Q3P ZXjZMTbIPC0yHK7eH0bkG ryguqzV7XbgGXwXtB1ENN 5qYZrnS5zkWcg vgfeaU2uRhn+K24JQQ3KW BYEIA1WGwn0U2ZtAywiuB I+HT79JSWlZL44tBLrjOI ml6atgNq0TjDl OBBaXQC8dMzeRAmxg9CxT JHfG82frAPao3X4AYNnyO xjwRGdHzCqiXI9hO1aGLw ealnns9icykng Mkytn2mwde70jZ35L26vK JdfKUXwTTH4HKQrUMCqsT sbqf5sjZ8dOw2+KPkru9z yd6inyKn0KiPn IVOdtpEtrLskJSY5y1VnC p39J4GpqUenu3IjBbl6fw 54yRCav6F0uLK1DMbwCNH xgJ7tESxaNaC8 UKRvFhCxpN57gMVzLYfaQ a4xfBnqlPymSA1mVGNzny feIKTmhR9vWICqmWRcpEz xNV3bAJMbgixs u347LwWkKQX8OWUrjENcI 1SyrK4yBaClTIQmAQWrY4 WalIMfYFviV702FNbnLwE 0JELefkVwX2Lu MWVceMasXtB1m2S6Wb4Dr 5EougtfXVU3XBrwRGO2Jy Z1XiUaVtW0E8BuFir9HSN dcIxyZA5hO2Es ZXMmdybacjxrdUM3JJHdT OGjzQ86oNHySZvdHz8nx2 Y5k959MSQkLCCuwK66Ka2 udDogMTBwdCBU cF8dnqhjq6yigqasAlWfF GEcCAf0RRb0CHZmpLnzHn TcDZU4VlS9LCI3oLNtpE2 jjYamukwjmB9f Oyc+T38jzN6bAPF1TWZ8q sdsCKDswzMzVH69QX65W9 RyPjwvdGFibGU+PGRpdiB uzTpnHR8vIkOk r6znj6RwECnxH6ZeJZMrG FhyYxe8XSMsGLO2sZB7cL 5fBRUbKHzrt8X6tDX5I0N qocSrpc9ke8ep GSUsHGyiY45gtUBqn4K1Z VTjkXT0AXEhtCtdLgWebP 93Oyc+GUUkvFrvw0XcVjl al9fsd1gnlTo1 IaLhLOZfbfOcjMutAMS7b 4OySb92U49nQTbyOFRrUW CwOOYsAHJnkNcpmp0sjY9 wIi8+PGNvbCB3 vJC9zC3hDSGtOvB8CQxhB 800CuGtiMLoJrnvq3azv4 fduKq1UsVeIJBiquKdoWg yKQG7y2JmBt71 Z91rKVwjZIYkEMRsRXOeK DAuvLobrr4btN7qCl2+PC 0ks8ypbz79mB35kLX+PHR vFPJ4cOovSMly WLVycO9nFFgeBjQ6RDQrP cUxbJ69mPDtIFikOj8zcA qzjQxtUX2uQOPmnorwa72 9QuSet2cqIEZi iJYkSNibQTF5Z18vw7M9B UQwFNWiYMK8tNT0gL6lbQ lnbjogbGVmdDsgdmVydGl wMJeeMUcfX780 IHRvcDsnPlBhdGllbnQgT cTuZJe4Y3UyKqi0JEUvdT cgQO1sqDLxXQctTk8bmPy ohMdfIG7cALOh qjjft029WvRvt1xvZVEjd GNgEYpoBFQ6D50pk9S3SA KrDZBuEFD2rNP8jC1olTr nbjogbGVmdDsg zlKurPdeAJsbNIjiZ789H HRvcDsnPkJpcnRoIERhdG O3JF49SK59tLRqc9K4pLA 1H7GzAPDnpwhn aqikpZN2MAOpNOMxlB95P r8ueQlcXd9nHVKuRDI4LI OalNDvP1AulO4vMiAqQSB nMMVsO5WntVBw BYguT726EFptUwK3JJIfw uWdW4FpEZFeqOwaOvQ7p7 U5Qu0QM2U4YU13ZA60aYA yw9Q4pQT3N8Mk SISnnrvtpmztfSP4DWDrY FMlhQ47Tz6zwVfwFm3wJU QjKLF5XBWmlZPgB4WlxH5 yOiAjMDAwMDAw D3ZzqZNjDYylZ410QKntC eI3VUOqpdGcP4EuLGOgpR jbPfK8c4F3Va2DXFm8PK0 3WV27lJNrm7A2 fQI8L5MpSCBfrdbuksczs BR7WVQrYLNoxZ57Pv7zbE kgKp7zZIRuTQK7CKPrpEW lF9GogK7kSqDn CVLgENVkM5HarJPbJXssC 054YJqyWcF6GWLxyuVjT9 YgGTAjjCzcKuL7c1C2As2 NSQQhCT72DJX0 rFP4UH24RH77K1TkSigtr GFibGU+PHRhYmxlIHdpZH RoPScxMDAlJyBzdHlsZT0 aKe8mKMSoOUDp hSaujWHmNqVwy1ceTIDoL KfsEN8sfUwtN5CgqAT1CE Zys7u9Yy03S39kW7MszRN +CRDadQB7uEK5 yM6lHpQiRcE3ZRxlF523Q xKvlNAoXcfdr2hch3apcV e4WeP3KJKugcQisRwnETT 9n5UzEe05Q31a IHdpZHRoPSIxNSUiIHZhb Lnqtr1ccD5lPg6+PGNvbC Q7hJB1jB9fUvErHwZ4ISk bX661PeTfhEXm Qcrui1ivx2dafTj7BqSwO BAkntHyvSipKTB4h9XrNl 94Y4HwmFdzg2YfZre8bv6 5aTBsa4V1aXT6 F0XsJUMxpgcjjOCkqPeaL V2lSJFevunzCNFqiG9sSW IqS8i2OeFoLcW6BHtwI9N djaN3UNBkmGMf TAbzEXT7T24qi9T1AOQfH QDiOLF3zKX5tR8chPswdg ogbGVmdDsgdmVydGljYWw jHPedF186BNBs hJfpJQKqcM2rMKDwePYvy UvqVA9pHATzjlriUyGOKQ HJUUEWLR4AVWfadLS+PHR qEGC0zRxzNUzd GIKhfM4wEQPqT3s5FwDcH qC7BNzdA2SmJUJamfipVb 96kD5yYoQlLwP2CIouQ7S kslU0CRCiuXPr ZZxcZKP8K72qw4H9JZObB IQtSQY6hCY7oG0fbBexhe ogbGVmdDsgdmVydGljYWw fXEzmH703BXGh oGjtXoSbTaO2ZuP8TPT9L 1VsUja7QJBocZtpJA5cbT IcWJiyJo1jvBvtiMofTF1 wNTBpbjtwYWRk pS9bRCHgmLTnlTugCZ1jB VDllglua002BoHjITM6QE TorKJiT0MzfC9aNqGpDKF iTBPlZ0GfoANe KHivZ387ECebVlT5RAHkt tLzB1MyYLXolNrqSvR6h7 P8Vq89XqATULYfbkejmLA +KYZvSAY1yAxb XKedYPFsxF9sDFYfI3r1H yVfVuD3XEjcQ6GhEPHoes imGf78vF8uZtKcHkJ3NXa yC2GjuwX1SCIj mCYsNKaySEJ6U47qs7S1J VKhEUVoIFD7tQR2dW3xiW lnbjogbGVmdDsgdmVydGl pXDsaGLoaA548 IHRvcDsnPkZlbWFsZTwvd GQ+HIFrPTV3bGmmVWbrYS BibJ2hANNzK2o3SjXfNhC 4PTrfG9EvTZBq jltuDm06wL9zGlGbBqT7T BuwH0XqqzV6YFDtlDDoWP ruCPD7B68uz0W3APMlOTW fDQP4bZQ0kY9x bGlnbjogbGVmdDsgdmVyd VkvAExpCBjtH535WTCmjF uhHj57cNCycWtsfwA0R4H kPjwvdHI+PC90 BSWfZK52cVVirUEbw1xvn Qz8TfEiYWMnUDD6rWslLY udp3XbUDJmJ38ehNPmz4M 6IGNvbGxhcHNl CoSkaVN5aY8bLKxxnhdmk 2azdunvIjtbk2hism17gY 94J63pPTrvXZPtDQQlMIN fACDmmDosxv7k fK2yCz8+BEMlqAR5gBB6o M0zGuHmTxZ5QAhvH267Pp PwrOCyYnqbw7gnb9mrwIc 9IjIwJSIgdmFs hEzjJXO0l9JoKc50G21aI HdpZHRoPSIyMCUiIHZhbG wjbp2acS3gNq0+QF5tv0x cvx52fO64oLT+ EUKwMZE9vFjhKNmmTNGku G9hBUheEnG1JTEyQxIxyQ 94pZEiSZdmHz2pcVgvxWf lCP1cPDMipgrs r280CsZur4mjTAVdhTEzA RmgRQS5I13wo6H0QILyBF UvNXO5xMC6fU5klXxgmqw gbGVmdDsgdmVy eZvbRYtbSEeiS793BLWsm QhnCmBrsXSgJ2ilfpTVBD 1lOjwvdGQ+RMIbDLP0fPa oQWfzJQAfiM0p IUNuN6t0AnUbTcU0HOrpJ 5ShkhD6CWVesGYhSVTqsM QSuA6iqgojj7qlplcnJfR rCPIoARu8PTb2 JBSyvTgrWrIaOFD9JkD6H YV6qSPudZ8qoJhxtsqdlM 9wOyc+RklOOjwvdGQ+PHR pZZN1pFkwGJmi XPIeeD1oGDCnW4v0CoKpE wG0YKydG4QefdP2VHCsjO SxADJjnQMXxT6emfuks3p vcjogIzAwMDAw RNp0TJz1ABZppWqyJoRgI WK4RvM1BXI6lZZcjQ5epB yvxwlwaV6uMky+TVJOOjw vdGQ+PHRkIHN0 eVqzCHlvVLPfeM5hWOEeI 5j4LkGsEpI8MVzzW3Xnvo F2UXRseANrWBUiwPOQhF5 pslqei7csdvmu MuWbUZGyKBy4OCe1BYFco NynGcTrNQO9VdT6NRF8aG HykH4ywAstnwqjvW6bJoa +GBM6WQV1HG43 GQ90H2JtTkopiUVasBM+P HRhYmxlIHdpZHRoPScxMD CbXzRpwZixOO4qVr8lPQS yLWNvbGxhcHNl OiBj (more content not included)... Normal [facility] Auto Diffon 03-01-2022 Basophils/100 WBC (Bld) 2.1 % High 0.0-2.0 [facility] Comment on above: Order Comment: Order Added by Discern Expert. Performed By: #### 2 [id number], [id number] ####[address] [address] Basophils/Leukocytes Auto (Bld) [Pure # fraction] 0.1 E9/L Normal 0.0-0.2 [facility] Comment on above: Order Comment: Order Added by Discern Expert. Performed By: #### 2 [id number], [id number] ####[address] [address] Eosinophils/100 WBC (Bld) 2.5 % Normal 0.0-8.0 [facility] Comment on above: Order Comment: Order Added by Discern Expert. Performed By: #### 2 [id number], [id number] ####[address] [address] Eosinophils/Leukocytes Auto (Bld) [Pure # fraction] 0.1 E9/L Normal 0.0-0.5 [facility] Comment on above: Order Comment: Order Added by Discern Expert. Performed By: #### 2 [id number], [id number] ####[address] [address] Lymphocytes/100 WBC (Bld) 34.6 % Normal 14.0-50.0 [facility] Comment on above: Order Comment: Order Added by Discern Expert. Performed By: #### 2 [id number], [id number] ####[address] [address] Lymphocytes/Leukocytes Auto (Bld) [Pure # fraction] 1.8 E9/L Normal 1.0-4.0 [facility] Comment on above: Order Comment: Order Added by Discern Expert. Performed By: #### 2 [id number], [id number] ####[address] [address] Monocytes/100 WBC (Bld) 7.8 % Normal 4.0-14.0 [facility] Comment on above: Order Comment: Order Added by Discern Expert. Performed By: #### 2 392325, [id number] ####[address] [address] Monocytes/Leukocytes Auto (Bld) [Pure # fraction] 0.4 E9/L Normal 0.2-1.0 [facility] Comment on above: Order Comment: Order Added by Discern Expert. Performed By: #### 2 [id number], [id number] ####[address] [address] Neutrophils/100 WBC (Bld) 53.0 % Normal 36.0-75.0 [facility] Comment on above: Order Comment: Order Added by Sudhir Expert. Performed By: #### 2 [id number], [id number] ####[address] [address] Neutrophils/Leukocytes Auto (Bld) [Pure # fraction] 2.7 E9/L Normal 2.0-7.5 [facility] Comment on above: Order Comment: Order Added by Sudhir Expert. Performed By: #### 2 [id number], [id number] ####[address] [address] BUNon 03-01-2022 Urea nitrogen [Mass/Vol] 14 mg/dL Normal 5-21 [facility] Comment on above: Performed By: #### 1 [id number], [id number], [id number], [id number], [id number] ####[place] [address] [place] [address] CBC w/ Auto Diffon Erythrocyte distribution width (RBC) [Ratio] 14.0 % Normal 10.9-14.2 [facility] Comment on above: Performed By: #### 2 332216, [id number] ####[address] [address] Hematocrit (Bld) [Volume fraction] 38.5 % Normal 34.0-46.0 [facility] Comment on above: Performed By: #### 2 990910, [id number] ####[address] [address] Hemoglobin (Bld) [Mass/Vol] 13.2 g/dL Normal 12.0-16.0 [facility] Comment on above: Performed By: #### 2 521769, [id number] ####[address] [address] MCH (RBC) [Entitic mass] 30.1 pg Normal 27.0-34.0 [facility] Comment on above: Performed By: #### 2 306632, [id number] ####[address] [address] MCHC (RBC) [Mass/Vol] 34.4 g/dL Normal 31.4-36.0 [facility] Comment on above: Performed By: #### 2 883669, [id number] ####[address] [address] MCV (RBC) [Entitic vol] 87.6 fL Normal 80.0-100.0 [facility] Comment on above: Performed By: #### 2 579494, [id number] ####[address] [address] Platelet mean volume (Bld) [Entitic vol] 8.6 fL Normal 6.4-10.8 [facility] Comment on above: Performed By: #### 2 241538, [id number] ####[facility] [address] [place] [address] Platelets (Bld) [#/Vol] 236.0 E9/L Normal 150.0-500.0 [facility] Comment on above: Performed By: #### 2 724729, [id number] ####[facility] [address] [place] [address] RBC (Bld) [#/Vol] 4.4 E12/L Normal 4.3-5.9 [facility] Comment on above: Performed By: #### 2 [id number], [id number] ####[facility] [address] [place] [address] WBC corrected for nucl RBC Auto (Bld) [#/Vol] 5.1 E9/L Normal 4.0-11.0 [facility] Comment on above: Performed By: #### 2 [id number], [id number] ####[facility] [address] [place] [address] CHEMISTRYOrdered By: SYSTEM SYSTEM on 03-01-2022 Anion gap [Moles/Vol] 10 mmol/L Normal 6 - 16 mEq/L F C Remisol Chloride [Moles/Vol] 105 mmol/L Normal 101 - 1 11 mmol/L [facility] Remisol CO2 [Moles/Vol] 27 mmol/L Normal 21 - 31 mmol/L [facility] Remisol Creatinine [Mass/Vol] 0.6 mg/dL Normal 0.5 - 1.3 mg/dL [facility] Remisol GFR/1.73 sq M.predicted among blacks MDRD (S/P/Bld) [Vol rate/Area] mL/min/1.73 m2 Normal >=59mL/min/1. 73 m2 [facility] Chem S GFR/1.73 sq M.predicted among non-blacks MDRD (S/P/Bld) [Vol rate/Area] mL/min/1.73 m2 Normal >=59mL/min/1. 73 m2 [facility] Chem S Glucose [Mass/Vol] 95 mg/dL Normal 55 - 199 mg/dL [facility] Remisol Potassium [Moles/Vol] 4.0 mmol/L Normal 3.5 - 5.3 mmol/L [facility] Remisol Sodium [Moles/Vol] 138 mmol/L Normal 135 - 145 mmol/L [facility] Remisol Urea nitrogen [Mass/Vol] 14 mg/dL Normal 5 - 21 mg/dL [facility] Remisol Consent for Treatmenton 02-08 Consent for Treatment [id number] .[id number] Normal [facility] Creatinineon 03-01-2022 Creatinine [Mass/Vol] 0.6 mg/dL Normal 0.5-1.3 [facility] Comment on above: Performed By: #### 1 [id number] ####[facility] [address] [place] [address] Glucoseon 03-01-2022 Glucose [Mass/Vol] 95 mg/dL Normal 55-199 [facility] Comment on above: Performed By: #### 1 [id number], [id number], [id number] ####[facility] [address] [place] [address] HEMATOLOGYOrdered By: SYSTEM SYSTEM on 03-01-2022 Basophils/100 WBC (Bld) 2.1 % High 0.0 - 2.0 % [facility] HemeAutoSS Basophils/Leukocytes Auto (Bld) [Pure # fraction] 0.1 E9/L Normal 0.0 - 0.2 E9/L [facility] HemeAutoSS Eosinophils/100 WBC (Bld) 2.5 % Normal 0.0 - 8.0 % [facility] HemeAutoSS Eosinophils/Leukocytes Auto (Bld) [Pure # fraction] 0.1 E9/L Normal 0.0 - 0.5 E9/L [facility]eAutoSS Lymphocytes/100 WBC (Bld) 34.6 % Normal 14.0 - 50.0 % [facility]eAutoSS Lymphocytes/Leukocytes Auto (Bld) [Pure # fraction] 1.8 E9/L Normal 1.0 - 4.0 E9/L [facility] HemeAutoSS Monocytes/100 WBC (Bld) 7.8 % Normal 4.0 - 14.0 % [facility] HemeAutoSS Monocytes/Leukocytes Auto (Bld) [Pure # fraction] 0.4 E9/L Normal 0.2 - 1.0 E9/L [facility]eAuto[facility] Neutrophils/100 WBC (Bld) 53.0 % Normal 36.0 - 75.0 % [facility]eAuto[facility] Neutrophils/Leukocytes Auto (Bld) [Pure # fraction] 2.7 E9/L Normal 2.0 - 7.5 E9/L [facility] HEMATOLOGYOrdered By: Radha Casper on 03-01-2022 Erythrocyte distribution width (RBC) [Ratio] 14.0 % Normal 10.9 - 14.2 % [facility] Hematocrit (Bld) [Volume fraction] 38.5 % Normal 34.0 - 46.0 % [facility] Hemoglobin (Bld) [Mass/Vol] 13.2 g/dL Normal 12.0 - 16.0 gm/dL [facility] MCH (RBC) [Entitic mass] 30.1 pg Normal 27.0 - 34.0 pg [facility] MCHC (RBC) [Mass/Vol] 34.4 g/dL Normal 31.4 - 36.0 gm/dL [facility] MCV (RBC) [Entitic vol] 87.6 fL Normal 80.0 - 100.0 fL [facility] Platelet mean volume (Bld) [Entitic vol] 8.6 fL Normal 6.4 - 10.8 fL [facility] Platelets (Bld) [#/Vol] 236.0 E9/L Normal 150.0 - 500.0 E9/L [facility] RBC (Bld) [#/Vol] 4.4 E12/L Normal 4.3 - 5.9 E12/L [facility] WBC corrected for nucl RBC Auto (Bld) [#/Vol] 5.1 E9/L Normal 4.0 - 11.0 E9/L [facility] Lyteson 03-01-2022 Anion gap [Moles/Vol] 10 mmol/L Normal 6-16 [facility] Comment on above: Performed By: #### 1 [id number], [id number], [id number], [id number] ####[facility] [address] [place] [address] Chloride [Moles/Vol] 105 mmol/L Normal 101-111 [facility] Comment on above: Performed By: #### 1 [id number], [id number], [id number], [id number] ####[facility] [address] [place] [address] CO2 [Moles/Vol] 27 mmol/L Normal 21-31 [facility] Comment on above: Performed By: #### 1 [id number], [id number], [id number], [id number], [id number] ####[facility] [facility] [address] [place] [address] Potassium [Moles/Vol] 4.0 mmol/L Normal 3.5-5.3 [facility] Comment on above: Performed By: #### 1 [id number], [id number], [id number], [id number], [id number] ####[facility] [address] [place] [address] Sodium [Moles/Vol] 138 mmol/L Normal 135-145 [facility] Comment on above: Performed By: #### 1 [id number], [id number], [id number], [id number], [id number] ####[facility] [address] [place] [address] XR Chest 2 Viewson XR Chest 2 Views Exam Date/Time: 03/01/2022 10:19 EDT Reason for Exam: pre op Report IMPRESSION: NO ACTIVE LUNG DISEASE. EXAM: XR Chest 2 Views CLINICAL HISTORY: Shortness of breath pre op COMPARISONS: None FINDINGS: The heart, mediastinum and pulmonary vasculature are within normal limits. Visualized lung segovia are clear. Bones unremarkable. FINAL REPORT Dictated: 03/01/2022 11:12 am Antonino Porter MD Signed (Electronic Signature): 03/01/2022 11:12 am Signed by: Antonino Porter MD Transcribed by: CARLOS ALBERTO Technologist: DPR Normal [facility] eGFRon 03-01-2022 GFR/1.73 sq M.predicted among blacks MDRD (S/P/Bld) [Vol rate/Area] mL/min/{1.73_m2} Normal >=59 [facility] Comment on above: Order Comment: Order added by Discern Expert. Result Comment: eGFR is race adjusted. AA=. Performed By: #### 1 [id number], [id number], [id number], [id number], [id number] ####[facility] [address] [place] [address] GFR/1.73 sq M.predicted among non-blacks MDRD (S/P/Bld) [Vol rate/Area] mL/min/{1.73_m2} Normal >=59 [facility] Comment on above: Order Comment: Order added by Discern Expert. Result Comment: Pipe Inspector lisa kidney disease could be indicated at eGFR's of less than 60 mL/min/1.73m2. Kidney failure is indicated at less than 15 mL/min/1.73m2. Performed By: #### 1 [id number], [id number], [id number], [id number], [id number] ####[facility] [address] [place] [address] Consent for Procedure/Surger yon 02-18-2022 Consent for Procedure/Surgery [id number] .00CD:127 Normal [facility] Physician Orderon 01-30-2022 Physician Order [id number] 1.00CD:127 Normal [facility] Complete Blood Count Auto Di ffon 01-28-2021 Basophils (Bld) [#/Vol] 0.1 10*3/uL Normal 0.0-0.2 [facility] Comment on above: Result Comment: PERF ORMED BY: [facility] [address] [place] [address] PATHOLOGIST ANCHORMAN VIVI YU M.D. Performed By: #### C BC, ETOH, CMP #### [facility] [address] [place] [address] [facility] Basophils/100 WBC (Bld) 1.9 % Normal . [facility] Comment on above: Performed By: #### C BC, ETOH, CMP #### [address] Eosinophils (Bld) [#/Vol] 0.0 10*3/uL Normal 0.0-0.45 [facility] Comment on above: Performed By: #### C BC, ETOH, CMP #### [address] Eosinophils/100 WBC (Bld) 0.8 % Normal . [facility] Comment on above: Performed By: #### C BC, ETOH, CMP #### [address] Erythrocyte distribution width (RBC) [Ratio] 13.6 % Normal 11.9-15.3 [facility] Comment on above: Performed By: #### C BC, ETOH, CMP #### [address] Hematocrit (Bld) [Volume fraction] 37.0 % Normal 34.0-46.4 [facility] Comment on above: Performed By: #### C BC, ETOH, CMP #### [address] Hemoglobin (Bld) [Mass/Vol] 12.4 g/dL Normal 11.8-15.4 [facility] Comment on above: Performed By: #### C BC, ETOH, CMP #### [place] [address] [place] Lymphocytes (Bld) [#/Vol] 1.8 10*3/uL Normal 1.00-4.8 [facility] Comment on above: Performed By: #### C BC, ETOH, CMP #### [place] [address] [place] Lymphocytes/100 WBC (Bld) 32.7 % Normal . [facility] Comment on above: Performed By: #### C BC, ETOH, CMP #### [address] MCH (RBC) [Entitic mass] 30.0 pg Normal 24.7-34.3 [facility] Comment on above: Performed By: #### C BC, ETOH, CMP #### [facility] [address] MCV (RBC) [Entitic vol] 89.5 fL Normal 80-100 [facility] Comment on above: Performed By: #### C BC, ETOH, CMP #### [facility] [address] Mean Corpuscular HGB Conc 33.6 g/dL Normal 32.0-35.0 [facility] Comment on above: Performed By: #### C BC, ETOH, CMP #### [address] Monocytes (Bld) [#/Vol] 0.4 10*3/uL Normal 0.0-0.8 [facility] Comment on above: Performed By: #### C BC, ETOH, CMP #### [address] Monocytes/100 WBC (Bld) 8.0 % Normal . [facility] Comment on above: Performed By: #### C BC, ETOH, CMP #### [address] Neutrophils (Bld) [#/Vol] 3.0 10*3/uL Normal 1.8-7.7 [facility] Comment on above: Performed By: #### C BC, ETOH, CMP #### [place] [address] [place] Neutrophils/100 WBC (Bld) 56.6 % Normal . [facility] Comment on above: Performed By: #### C BC, ETOH, CMP #### [facility] [address] [place] [address] [place] Nucleated RBC/100 WBC (Bld) [Ratio] 0.0 % Normal 0-0.5 [facility] Comment on above: Performed By: #### C BC, ETOH, CMP #### [address] Platelet mean volume (Bld) [Entitic vol] 8.3 fL Normal 6.3-10.7 [facility] Comment on above: Performed By: #### C BC, ETOH, CMP #### [facility] [address] [place] [address] Platelets (Bld) [#/Vol] 235 10*3/uL Normal 150-450 [facility] Comment on above: Performed By: #### C BC, ETOH, CMP #### [address] RBC (Bld) [#/Vol] 4.14 10*6/uL Normal 3.60-5.00 [facility] Comment on above: Performed By: #### C BC, ETOH, CMP #### [address] WBC (Bld) [#/Vol] 5.4 10*3/uL Normal 4.5-11.0 [facility] Comment on above: Performed By: #### C BC, ETOH, CMP #### [address] Comprehensive Metabolic Pane marylou 01-28-2021 Albumin [Mass/Vol] 3.8 g/dL Normal 3.2-5.5 [facility] Comment on above: Performed By: #### C BC, ETOH, CMP #### [address] Albumin/Globulin [Mass ratio] 1.2 {ratio} Normal [facility] Comment on above: Performed By: #### C BC, ETOH, CMP #### [address] ALP [Catalytic activity/Vol] 72 U/L Normal 32-92 [facility] Comment on above: Performed By: #### C BC, ETOH, CMP #### [address] ALT [Catalytic activity/Vol] 14 U/L Normal 10-60 [facility] Comment on above: Performed By: #### C BC, ETOH, CMP #### [address] [place] [address] [place] AST [Catalytic activity/Vol] 18 U/L Normal 10-42 [facility] Comment on above: Performed By: #### C BC, ETOH, CMP #### [facility] [address] Bilirubin [Mass/Vol] 0.5 mg/dL Normal 0.3-1.2 [facility] Comment on above: Performed By: #### C BC, ETOH, CMP #### [facility] [address] Calcium [Mass/Vol] 9.2 mg/dL Normal 8.2-10.2 [facility] Comment on above: Performed By: #### C BC, ETOH, CMP #### [facility] [address] Chloride [Moles/Vol] 107 mmol/L Normal 95-114 [facility] Comment on above: Performed By: #### C BC, ETOH, CMP #### [facility] [address] CO2 [Moles/Vol] 24.0 mmol/L Normal 22.0-30.0 [facility] Comment on above: Performed By: #### C BC, ETOH, CMP #### [facility] [address] Creatinine [Mass/Vol] 0.64 mg/dL Normal 0.44-1.03 [facility] Comment on above: Performed By: #### C BC, ETOH, CMP #### [facility] [address] [place] [address] [place] Creatinine Clr Calc Pharmacy 75.[address] [facility] Comment on above: Result Comment: PERF ORMED BY: [place] [address] PATHOLOGIST ANCHORMAN VIVI YU M.D. Performed By: #### C BC, ETOH, CMP #### [place] [address] [place] Estimated GFR ( Padmini > 60 Normal [facility] Comment on above: Result Comment: GFR estimated reference range: According to KDOQI guidelines, <60 ml/min/1.73m2 is sufficient to diagnose a patient with chronic kidney disease. Performed By: #### C BC, ETOH, CMP #### [address] Estimated GFR (Non- Am > 60 Normal [facility] Comment on above: Performed By: #### C BC, ETOH, CMP #### [address] Globulin (S) [Mass/Vol] 3.1 g/dL Normal [facility] Comment on above: Performed By: #### C BC, ETOH, CMP #### [address] Glucose [Mass/Vol] 149 mg/dL High 70-100 [facility] Comment on above: Result Comment: [place] Glucose Reference Range is dependent on time and content of last meal. Glucose of more than 200 mg/dL in a nonstressed, ambulatory subject supports the diagnosis of Diabetes Mellitus. ADA recommended reference range Performed By: #### C BC, ETOH, CMP #### [address] Potassium [Moles/Vol] 3.7 mmol/L Normal 3.5-5.1 [facility] Comment on above: Performed By: #### C BC, ETOH, CMP #### [address] Protein [Mass/Vol] 6.9 g/dL Normal 6.1-7.9 [facility] Comment on above: Performed By: #### C BC, ETOH, CMP #### [place] [address] [place] Sodium [Moles/Vol] 141 mmol/L Normal 136-146 [facility] Comment on above: Performed By: #### C BC, ETOH, CMP #### [address] Urea nitrogen [Mass/Vol] 9 mg/dL Normal 9-23 [facility] Comment on above: Performed By: #### C BC, ETOH, CMP #### [facility] [address] [place] [address] [place] Drug Screen,Urineon 01-29-20 Amphetamine Screen,Urine Negative Normal Negative [facility] Comment on above: Performed By: #### U RDS, UA #### [facility] [address] [place] [address] [place] Barbiturate Screen,Urine Negative Normal Negative [facility] Comment on above: Performed By: #### U RDS, UA #### [place] [address] [place] Benzodiazepines Screen,Urine Negative Normal Negative [facility] Comment on above: Performed By: #### U RDS, UA #### [address] Cannabinoid Screen,Urine Negative Normal Negative [facility] Comment on above: Result Comment: Thes e are unconfirmed results and should not be used for legal purposes. Drug Cut-Off Concentration: AMPH 1000 ng/mL KIKE 200 ng/mL ANA 200 ng/mL COCM 300 ng/mL OP 300 ng/mL PCP 25 ng/mL THC 20 ng/mL PERFORMED BY: [place] [address] PATHOLOGIST ANCHORMAN VIVI YU M.D. Performed By: #### U RDS, UA #### [place] [address] [place] Cocaine Screen,Urine Negative Normal Negative [facility] Comment on above: Performed By: #### U RDS, UA #### [facility] [address] [place] [address] [place] Opiate Screen,Urine Negative Normal Negative [facility] Comment on above: Performed By: #### U RDS, UA #### [facility] [address] [place] [address] [place] Phencyclidine Screen,Urine Negative Normal Negative [facility] Comment on above: Performed By: #### U RDS, UA #### [facility] [address] [place] [address] [place] ECG 12 lead ECGon 01-28-2021 ECG 12 lead ECG [facility] [place] [address] [place] [address] Electrocardiograph Report Signed Patient: Renee Hawk MR#: [id number] 8 : 1955 Acct:[id number] Age/Sex: 65 / F ADM Date: 01/28/21 Loc: ER Room: Type: [facility] ER Attending Dr: Ordering Provider: Chay Pritchett DO Date of Service: 01/28/21 ECG/ECG 12 lead ECG: DO Copies to: Test Reason : Blood Pressure : 132/097 mmHG Vent. Rate : 092 BPM Atrial Rate : 092 BPM P-R Int : 196 ms QRS Dur : 142 ms QT Int : 390 ms P-R-T Axes : 059 090 062 degrees QTc Int : 482 ms Normal sinus rhythm Right bundle branch block Abnormal ECG No previous ECGs available Confirmed by CHAY PRITCHETT DO ([id number]) on 01/28/2021 6:03:58 AM Referred By: Electronically Signed By:CHAY PRITCHETT DO Transcribed By: MUS Dictated By: Chay Pritchett DO 01/28/21 0040 Signed By: 01/28/[address] [facility] Ethyl Alcohol Profileon 01-08 Ethanol [Mass/Vol] 188 mg/dL Normal [facility] Comment on above: Performed By: #### C BC, ETOH, CMP #### [facility] [address] [place] [address] Percent Ethanol 0.188 % [facility] Comment on above: Result Comment: PERF ORMED BY: [place] [address] PATHOLOGIST ANCHORMAN VIVI YU M.D. Performed By: #### C BC, ETOH, CMP #### [facility] [address] [place], [place] [id number] [facility] Urinalysison 01-28-2021 Appearance (U) Clear Normal Clear [facility] Comment on above: Order Comment: Name Collection Type:: Straight Catheter Performed By: #### U RDS, UA #### [facility] [address] [place] [address] [place] Bilirubin,Urine Negative Normal Negative [facility] Comment on above: Order Comment: Name Collection Type:: Straight Catheter Performed By: #### U RDS, UA #### [facility] [address] [place] [address] [place] Color (U) Yellow Normal Yellow [facility] Comment on above: Order Comment: Name Collection Type:: Straight Catheter Performed By: #### U RDS, UA #### [facility] [address] [place] [address] [place] Glucose Ql (U) Normal Normal Normal [facility] Comment on above: Order Comment: Name Collection Type:: Straight Catheter Performed By: #### U RDS, UA #### [facility] [address] [place] [address] Ketones Ql (U) Negative Normal Negative [facility] Comment on above: Order Comment: Name Collection Type:: Straight Catheter Performed By: #### U RDS, UA #### [facility] [address] [place] [address] Leukocyte esterase Test strip Ql (U) Negative Normal Negative [facility] Comment on above: Order Comment: Name Collection Type:: Straight Catheter Performed By: #### U RDS, UA #### [facility] [address] [place] [address] [place] Nitrite,Urine Negative Normal Negative [facility] Comment on above: Order Comment: Name Collection Type:: Straight Catheter Performed By: #### U RDS, UA #### [facility] [address] [place] [address] [place] Occult Blood,Urine Negative Normal Negative [facility] Comment on above: Order Comment: Name Collection Type:: Straight Catheter Result Comment: PERF ORMED BY: [place] [address] PATHOLOGIST ANCHORMAN VIVI YU M.D. Performed By: #### U RDS, UA #### [facility] [address] [place] [address] [place] pH (U) 5.0 [pH] Normal 5.0-9.0 [facility] Comment on above: Order Comment: Name Collection Type:: Straight Catheter Performed By: #### U RDS, UA #### [facility] [address] [place] [id number] [place] Protein,Urine Negative Normal Negative [facility] Comment on above: Order Comment: Name Collection Type:: Straight Catheter Performed By: #### U RDS, UA #### [facility] [address] [place] [address] [place] Specificy [place],Urine 1.014 Normal 1.001-1.030 [facility] Comment on above: Order Comment: Name Collection Type:: Straight Catheter Performed By: #### U RDS, UA #### [facility] [address] [place] [id number] [place] Urobilinogen,Urine Normal Normal Normal [facility] Comment on above: Order Comment: Name Collection Type:: Straight Catheter Performed By: #### U RDS, UA #### [facility] [address] [place] [id number] [facility] Vital Signs Date Time Vital Sign Value Performing Clinician Facility 01-06-2025 10:58-0400 Body height 165.1 cm Aurora Ferguson MD Work Phone: [facility] 01-06-2025 10:58-0400 Body mass index (BMI) [Ratio] 28 kg/m2 Aurora Ferguson MD Work Phone: [facility] 01-06-2025 10:58-0400 Body weight 76.43 kg Aurora Ferguson MD Work Phone: [facility] 01-06-2025 10:58-0400 Diastolic blood pressure 73 mm[Hg] Aurora Ferguson MD Work Phone: [facility] 01-06-2025 10:58-0400 Heart rate 73 /min Aurora Ferguson MD Work Phone: [facility] 01-06-2025 10:58-0400 Respiratory rate 12 /min Aurora Ferguson MD Work Phone: [facility] 01-06-2025 10:58-0400 SaO2% (BldA) [Mass fraction] 97 % Aurora Ferguson MD Work Phone: [facility] 01-06-2025 10:58-0400 Systolic blood pressure 131 mm[Hg] Aurora Ferguson MD Work Phone: [facility] 10-01-2024 11:00-0400 Body height 165.1 cm [facility] 10-01-2024 11:00-0400 Body mass index (BMI) [Ratio] 26.6 kg/m2 [facility] 10-01-2024 11:00-0400 Body weight 72.8 kg [facility] 10-01-2024 11:00-0400 Diastolic blood pressure 56 mm[Hg] [facility] 10-01-2024 11:00-0400 Heart rate 72 /min [facility] 10-01-2024 11:00-0400 Respiratory rate 18 /min [facility] 10-01-2024 11:00-0400 SaO2% (BldA) [Mass fraction] 100 % [facility] 10-01-2024 11:00-0400 Systolic blood pressure 115 mm[Hg] [facility] 07-09-2024 11:38-0500 Body height 165.1 cm [facility] 07-09-2024 11:38-0500 Body mass index (BMI) [Ratio] 26.4 kg/m2 [facility] 07-09-2024 11:38-0500 Body weight 72.23 kg [facility] 07-09-2024 11:38-0500 Diastolic blood pressure 60 mm[Hg] [facility] 07-09-2024 11:38-0500 Heart rate 75 /min [facility] 07-09-2024 11:38-0500 Respiratory rate 18 /min [facility] 07-09-2024 11:38-0500 SaO2% (BldA) [Mass fraction] 99 % [facility] 07-09-2024 11:38-0500 Systolic blood pressure 113 mm[Hg] [facility] 04-12-2024 10:52-0500 Body height 165.1 cm [facility] 04-12-2024 10:52-0500 Body mass index (BMI) [Ratio] 26.4 kg/m2 [facility] 04-12-2024 10:52-0500 Body weight 71.86 kg [facility] 04-12-2024 10:52-0500 Diastolic blood pressure 57 mm[Hg] [facility] 04-12-2024 10:52-0500 Heart rate 78 /min [facility] 04-12-2024 10:52-0500 Respiratory rate 18 /min [facility] 04-12-2024 10:52-0500 SaO2% (BldA) [Mass fraction] 100 % [facility] 04-12-2024 10:52-0500 Systolic blood pressure 122 mm[Hg] [facility] 01-22-2024 13:52-0400 Body height 165.1 cm [facility] 01-22-2024 13:52-0400 Body mass index (BMI) [Ratio] 26.7 kg/m2 [facility] 01-22-2024 13:52-0400 Body weight 72.82 kg [facility] 01-22-2024 13:52-0400 Diastolic blood pressure 67 mm[Hg] [facility] 01-22-2024 13:52-0400 Heart rate 74 /min [facility] 01-22-2024 13:52-0400 Respiratory rate 18 /min [facility] 01-22-2024 13:52-0400 SaO2% (BldA) [Mass fraction] 100 % [facility] 01-22-2024 13:52-0400 Systolic blood pressure 129 mm[Hg] [facility] 12-26-2023 10:35-0400 Body height 165.1 cm [facility] 12-26-2023 10:35-0400 Body mass index (BMI) [Ratio] 26.9 kg/m2 [facility] 12-26-2023 10:35-0400 Body weight 73.56 kg [facility] 12-26-2023 10:35-0400 Diastolic blood pressure 62 mm[Hg] [facility] 12-26-2023 10:35-0400 Heart rate 72 /min [facility] 12-26-2023 10:35-0400 Respiratory rate 16 /min [facility] 12-26-2023 10:35-0400 SaO2% (BldA) [Mass fraction] 100 % [facility] 12-26-2023 10:35-0400 Systolic blood pressure 129 mm[Hg] [facility] 12-25-2023 14:34-0400 Body height 165.1 cm [facility] 12-25-2023 14:34-0400 Body mass index (BMI) [Ratio] 26.9 kg/m2 [facility] 12-25-2023 14:34-0400 Body weight 73.48 kg [facility] 12-25-2023 14:34-0400 Diastolic blood pressure 76 mm[Hg] [facility] 12-25-2023 14:34-0400 Heart rate 80 /min [facility] 12-25-2023 14:34-0400 Systolic blood pressure 151 mm[Hg] [facility] 11-20-2023 14:25-0400 Body height 165.1 cm [facility] 11-20-2023 14:25-0400 Body mass index (BMI) [Ratio] 27.3 kg/m2 [facility] 11-20-2023 14:25-0400 Body weight 74.61 kg [facility] 11-20-2023 14:25-0400 Diastolic blood pressure 66 mm[Hg] [facility] 11-20-2023 14:25-0400 Heart rate 80 /min [facility] 11-20-2023 14:25-0400 Respiratory rate 16 /min [facility] 11-20-2023 14:25-0400 SaO2% (BldA) [Mass fraction] 95 % [facility] 11-20-2023 14:25-0400 Systolic blood pressure 144 mm[Hg] [facility] 10-09-2023 11:10-0400 Body height 165.1 cm [facility] 10-09-2023 11:10-0400 Body mass index (BMI) [Ratio] 28 kg/m2 [facility] 10-09-2023 11:10-0400 Body weight 76.45 kg [facility] 10-09-2023 11:10-0400 Diastolic blood pressure 74 mm[Hg] [facility] 10-09-2023 11:10-0400 Heart rate 80 /min [facility] 10-09-2023 11:10-0400 Respiratory rate 18 /min [facility] 10-09-2023 11:10-0400 SaO2% (BldA) [Mass fraction] 98 % [facility] 10-09-2023 11:10-0400 Systolic blood pressure 147 mm[Hg] [facility] 08-28-2023 10:59-0400 Body height 165.1 cm [facility] 08-28-2023 10:59-0400 Body mass index (BMI) [Ratio] 28 kg/m2 [facility] 08-28-2023 10:59-0400 Body weight 76.37 kg [facility] 08-28-2023 10:59-0400 Diastolic blood pressure 71 mm[Hg] [facility] 08-28-2023 10:59-0400 Heart rate 81 /min [facility] 08-28-2023 10:59-0400 Respiratory rate 18 /min [facility] 08-28-2023 10:59-0400 SaO2% (BldA) [Mass fraction] 98 % [facility] 08-28-2023 10:59-0400 Systolic blood pressure 144 mm[Hg] [facility] 07-23-2023 15:11-0500 Body height 167.6 cm Beatriz Lance MD Work Phone: [facility] 07-23-2023 15:11-0500 Body mass index (BMI) [Ratio] 28.08 kg/m2 Beatriz Lance MD Work Phone: [facility] 07-23-2023 15:11-0500 Body weight 78.93 kg Beatriz Lance MD Work Phone: [facility] 07-23-2023 15:11-0500 Diastolic blood pressure 87 mm[Hg] Beatriz Lance MD Work Phone: [facility] 07-23-2023 15:11-0500 Systolic blood pressure 137 mm[Hg] Beatriz Lance MD Work Phone: [facility] 07-15-2023 15:20-0500 Body height 167.6 cm Beatriz Lance MD Work Phone: [facility] 07-15-2023 15:20-0500 Body mass index (BMI) [Ratio] 28.08 kg/m2 Beatriz Lance MD Work Phone: [facility] 07-15-2023 15:20-0500 Body weight 78.93 kg Beatriz Lance MD Work Phone: [facility] 07-15-2023 15:20-0500 Diastolic blood pressure 80 mm[Hg] Beatriz Lance MD Work Phone: [facility] 07-15-2023 15:20-0500 Systolic blood pressure 115 mm[Hg] Beatriz Lance MD Work Phone: [facility] 07-14-2023 10:30-0500 Body height 162.56 cm Aurora Ferguson Other [facility] Other 07-14-2023 10:30-0500 Body mass index (BMI) [Ratio] 29.52 kg/m2 Aurora Ferguson Other [facility] Other 07-14-2023 10:30-0500 Body weight 78.02 kg Aurora Ferguson Other [facility] Other 07-14-2023 10:30-0500 Diastolic blood pressure 77 mm[Hg] Aurora Ferguson Other [facility] Other 07-14-2023 10:30-0500 Systolic blood pressure 129 mm[Hg] Aurora Ferguson Other [facility] Other 02-13-2023 10:30-0400 Body height 162.56 cm Aurora Ferguson Other [facility] Other 02-13-2023 10:30-0400 Body mass index (BMI) [Ratio] 28.77 kg/m2 Aurora Ferguson Other [facility] Other 02-13-2023 10:30-0400 Body weight 76.02 kg Aurora Ferguson Other [facility] Other 02-13-2023 10:30-0400 Diastolic blood pressure 81 mm[Hg] Aurora Ferguson Other [facility] Other 02-13-2023 10:30-0400 Systolic blood pressure 140 mm[Hg] Aurora Ferguson Other [facility] Other 01-16-2023 11:00-0400 Body height 162.56 cm Aurora Ferguson Other [facility] Other 01-16-2023 11:00-0400 Body mass index (BMI) [Ratio] 28.66 kg/m2 Aurora Ferguson Other [facility] Other 01-16-2023 11:00-0400 Body weight 75.75 kg Aurora Ferguson Other [facility] Other 01-16-2023 11:00-0400 SaO2% (BldA) [Mass fraction] 95 % Aurora Ferguson Other [facility] Other 10-31-2022 10:00-0400 Body height 162.56 cm Aurora Ferguson Other [facility] Other 10-31-2022 10:00-0400 Body mass index (BMI) [Ratio] 29.52 kg/m2 Aurora Ferguson Other [facility] Other 10-31-2022 10:00-0400 Body weight 78.02 kg Aurora Monica Other [facility] Other 10-31-2022 10:00-0400 Diastolic blood pressure 74 mm[Hg] Aurora Monica Other [facility] Other 10-31-2022 10:00-0400 Systolic blood pressure 160 mm[Hg] Aurora Monica Other [facility] [employer] Other 03-07-2022 12:38-0400 Blood Pressure Location Beatriz Timmis [facility] 03-07-2022 12:38-0400 Body temperature 97.88 [degF] Beatriz Timmis [facility] 03-07-2022 12:38-0400 BP/Pulse Patient Position Beatriz Timmis [facility] 03-07-2022 12:38-0400 Diastolic blood pressure 71 mm[Hg] Beatriz Timmis [facility] 03-07-2022 12:38-0400 Heart rate 70 /min Beatriz Timmis [facility] 03-07-2022 12:38-0400 Mean blood pressure 94 mm[Hg] Beatriz Timmis [facility] 03-07-2022 12:38-0400 Respiratory rate 16 /min Beatriz Timmis [facility] 03-07-2022 12:38-0400 SaO2% (BldA) [Mass fraction] 98 % Beatriz Timmis [facility] 03-07-2022 12:38-0400 Systolic blood pressure 139 mm[Hg] Beatriz Timmis [facility] 03-07-2022 11:53-0400 Blood Pressure Location Beatriz Timmis [facility] 03-07-2022 11:53-0400 BP/Pulse Patient Position Beatriz Timmis [facility] 03-07-2022 11:53-0400 Diastolic blood pressure 79 mm[Hg] Beatriz Timmis [facility] 03-07-2022 11:53-0400 Heart rate 73 /min Beatriz Timmis [facility] 03-07-2022 11:53-0400 Mean blood pressure 101 mm[Hg] Beatriz Timmis [facility] 03-07-2022 11:53-0400 Respiratory rate 16 /min Beatriz Timmis [facility] 03-07-2022 11:53-0400 SaO2% (BldA) [Mass fraction] 97 % Beatriz Timmis [facility] 03-07-2022 11:53-0400 Systolic blood pressure 146 mm[Hg] Beatriz Timmis [facility] 03-07-2022 11:53-0400 Body temperature 97.52 [degF] Beatriz Timmis [facility] 03-07-2022 11:45-0400 Body temperature 97.52 [degF] Beatriz Timmis [facility] 03-07-2022 11:45-0400 Diastolic blood pressure 67 mm[Hg] Beatriz Timmis [facility] 03-07-2022 11:45-0400 Heart rate 71 /min Beatriz Timmis [facility] 03-07-2022 11:45-0400 Respiratory rate 12 /min Beatriz Timmis [facility] 03-07-2022 11:45-0400 SaO2% (BldA) [Mass fraction] 97 % Beatriz Timmis [facility] 03-07-2022 11:45-0400 Systolic blood pressure 130 mm[Hg] Beatriz Timmis [facility] 03-07-2022 11:35-0400 Respiratory rate 13 /min Beatriz Timmis [facility] 03-07-2022 11:30-0400 Respiratory rate 16 /min Beatriz Timmis [facility] 03-07-2022 11:20-0400 Body temperature 97.34 [degF] Beatriz Timmis [facility] 03-07-2022 11:15-0400 Respiratory rate 30 /min Beatriz Timmis [facility] 03-07-2022 08:45-0400 Blood Pressure Location Beatriz Timmis [facility] 03-07-2022 08:45-0400 Mean blood pressure 85 mm[Hg] Beatriz Timmis [facility] 03-07-2022 08:45-0400 Heart rate 62 /min Beatriz Timmis [facility] 03-07-2022 08:44-0400 Body temperature 97.88 [degF] Beatriz Timmis [facility] 03-07-2022 08:44-0400 Mean blood pressure 87 mm[Hg] Beatriz Timmis [facility] 03-01-2022 09:35-0400 Blood Pressure Location Beatriz Timmis [facility] 03-01-2022 09:35-0400 Body temperature 97.88 [degF] Beatriz Timmis [facility] 03-01-2022 09:35-0400 BP/Pulse Patient Position Beatriz Timmis [facility] 03-01-2022 09:35-0400 Diastolic blood pressure 76 mm[Hg] Beatriz Timmis [facility] 03-01-2022 09:35-0400 Heart rate 59 /min Beatriz Timmis [facility] 03-01-2022 09:35-0400 Mean blood pressure 94 mm[Hg] Beatriz Timmis [facility] 03-01-2022 09:35-0400 Respiratory rate 16 /min Beatriz Timmis [facility] 03-01-2022 09:35-0400 Systolic blood pressure 130 mm[Hg] Beatriz Timmis [facility] 03-01-2022 09:34-0400 Blood Pressure Location Beatriz Timmis [facility] 03-01-2022 09:34-0400 BP/Pulse Patient Position Beatriz Timmis [facility] 03-01-2022 09:34-0400 Diastolic blood pressure 61 mm[Hg] Beatriz Timmis [facility] 03-01-2022 09:34-0400 Heart rate 60 /min Beatriz Timmis [facility] 03-01-2022 09:34-0400 Mean blood pressure 83 mm[Hg] Beatriz Timmis [facility] 03-01-2022 09:34-0400 Respiratory rate 16 /min Beatriz Lance [facility] 03-01-2022 09:34-0400 SaO2% (BldA) [Mass fraction] 100 % Beatriz Lance [facility] 03-01-2022 09:34-0400 Systolic blood pressure 126 mm[Hg] Beatriz Lance [facility] Encounters Encounter Date Encounter Type Care Provider Facility Start: 01-06-2025 End: 01-06-2025 ambulatory Aurora Ferguson MD Work Phone: [facility] Work Phone: Start: 01-06-2025 End: 01-06-2025 Patient encounter procedure Aurora Ferguson MD [facility] Work Phone: Start: 10-01-2024 End: 10-01-2024 ambulatory [facility] Work Phone: Start: 10-01-2024 End: 10-01-2024 Patient encounter procedure [facility] Work Phone: Start: 07-09-2024 End: 07-09-2024 ambulatory [facility] Work Phone: Start: 07-09-2024 End: 07-09-2024 Patient encounter procedure [facility] Work Phone: Start: 04-12-2024 End: 04-12-2024 ambulatory [facility] Work Phone: Start: 04-12-2024 End: 04-12-2024 Patient encounter procedure [facility] Work Phone: Start: 01-22-2024 End: 01-22-2024 ambulatory [facility] Work Phone: Start: 01-22-2024 End: 01-22-2024 Patient encounter procedure [facility] Work Phone: Start: 12-26-2023 End: 12-26-2023 ambulatory [facility] Work Phone: Start: 12-26-2023 End: 12-26-2023 Patient encounter procedure [facility] Work Phone: Start: 12-25-2023 Patient encounter procedure [facility] Start: 12-25-2023 End: 12-25-2023 ambulatory [facility] Work Phone: Start: 12-25-2023 End: 12-25-2023 Patient encounter procedure [facility] Work Phone: Start: 11-20-2023 End: 11-20-2023 ambulatory [facility] Work Phone: Start: 11-20-2023 End: 11-20-2023 Patient encounter procedure [facility] Work Phone: Start: 10-09-2023 End: 10-09-2023 Patient encounter procedure [facility] Work Phone: Start: 09-11-2023 End: 09-11-2023 ambulatory [facility] Work Phone: Start: 09-11-2023 End: 09-11-2023 Patient encounter procedure [facility] Work Phone: Start: 08-28-2023 End: 08-28-2023 ambulatory [facility] Work Phone: Start: 08-28-2023 End: 08-28-2023 Patient encounter procedure [facility] Work Phone: Start: 08-14-2023 Non-patient / [facility]: Start: 07-23-2023 End: 07-23-2023 ambulatory BEATRIZ H TIMMIS Not Available Start: 07-23-2023 End: 07-23-2023 Office outpatient visit 25 minutes Beatriz Lance MD Work Phone: [facility] Comment on above: 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) Start: 07-23-2023 Bamboo flowsheet Beatriz patel MD Work Phone: [facility] Start: 07-23-2023 Bamboo flowsheet Beatriz patel MD Work Phone: [facility] Start: 07-19-2023 Chart abstracting Beatriz prieto MD Work Phone: [facility] Start: 07-15-2023 End: 07-15-2023 ambulatory BEATRIZ LANCE Not Available Start: 07-15-2023 End: 07-15-2023 Office outpatient visit 15 minutes Beatriz Lance MD Work Phone: [facility] Comment on above: Hearing loss of left ear, unspecified hearing loss type (Primary Dx) Start: 07-15-2023 Chart abstracting Beatriz prieto MD Work Phone: [facility] Start: 07-14-2023 End: 07-14-2023 ambulatory Aurora Ferguson Other [facility] Other Start: 07-14-2023 Office outpatient vi sit 15 minutes Aurora Ferguson [facility] Start: 07-14-2023 Telephone encounter Aurora Ferguson [facility] Start: 04-11-2023 End: 04-11-2023 ambulatory Aurora Ferguson Other [facility] Other Start: 04-11-2023 Telephone encounter Aurora Ferguson [facility] Start: 02-13-2023 End: 02-13-2023 ambulatory Aurora Ferguson Other [facility] Other Start: 02-13-2023 Office outpatient vi sit 10 minutes Aurora Ferguson [facility] Start: 01-16-2023 End: 01-16-2023 ambulatory Aurora Ferguson Other [facility] Other Start: 01-16-2023 Office outpatient vi sit 10 minutes Aurora Ferguson [facility] Start: 11-20-2022 End: 11-20-2022 ambulatory Aurora Ferguson Other [facility] Other Start: 11-20-2022 Telephone encounter Aurora Ferguson [facility] Start: 11-01-2022 End: 11-02-[address] AURORA FERGUSON Facility: Start: 10-31-2022 End: 10-31-2022 ambulatory Aurora Ferguson Other [facility] Other Start: 10-31-2022 Patient encounter procedure Aurora Ferguson [facility] Start: 03-07-2022 End: 03-07-2022 ambulatory Beatriz H Timmis Facility:[facility] Start: 03-07-2022 End: 03-07-2022 Admission to same day surgery center Beatriz H Timmis [facility] Start: 03-01-2022 End: 03-02-2022 ambulatory Beatriz H Timmis Facility:[facility] Start: 03-01-2022 End: 03-01-2022 Patient encounter procedure Beatriz H Timmis [facility] Start: 12-24-2021 Adult health examination Aurora Ferguson Other [facility] Other Procedures Date Procedure Procedure Detail Performing Clinician Start: 03-07-2022 Myringotomy and inse rtion of T tube Beatriz Timmis Biopsy of breast Beatriz Aman is Screening for malign ant neoplasm of breast Aurora Ferguson Other Plan of Treatment Date Care Activity Detail Author Start: 07-23-2023 End: 07-23-2023 Patient encounter procedure [facility] Comment on above: Arrived Start: 07-15-2023 End: 07-15-2023 Patient encounter procedure 07/15/2023 3:20 PM EST Office Visit [facility] [address] [place] [id number] Beatriz Lance MD [address] [facility] [address] [place] [address] [facility] Start: 02-07-2023 Influenza vaccination Influenza Vacc ine (#1) [facility] Start: 2019 Pneumococcal Vaccine : 65+ Years (1 - PCV) Pneumococcal Vaccine: 65+ Years (1 - PCV) [facility] Start: 1994 Screening for malign ant neoplasm of breast Mammogram [facility] Start: 1954 Screening for malign ant neoplasm of colon [facility] metabo lic 1999 panel - Serum or Plasma [facility] Comprehensive metabo lic 1999 panel - Serum or Plasma [facility] MG Breast - bilatera l Screening [facility] Immunizations Immunization Date Immunization Notes Care Provider Fa cility 08-11-2020 COVID-19 vaccine, vector-nr, rS-Ad26, PF, 0.5 mL Beatriz Lance [facility] Comment on above: Reason for Medicatio n: Prophylaxis Payers Date Payer Category Payer Unknown [id number] 2022 Unknown 2019 Medicare MEDICARE MEDICAR E PART B [id number] 2019-[place] [address] [place] [address] Medicare [id number] 1959 Medicare [id number] 1959 Self-pay 1959 Unknown [id number] 1954 Unknown [id number] 1954 Unknown [id number] 1954 Unknown [id number] 1954 Unknown [id number] 1954 Unknown [id number] 1954 Unknown [id number] Unknown [id number] Unknown [facility] [id number] Unknown [facility] [id number] Social History Date Type Detail Facility Tobacco smoking status No Smokin g Status Entered [facility] Start: 04-14-2023 End: 07-15-2023 Sex Assigned At Female [facility] Start: 04-14-2023 End: 08-28-2023 Tobacco smoking status NHIS Never smoked tobacco [facility] Start: 04-14-2023 Tobacco use and exposure Smokeless tobacco non-user [facility] Start: 07-15-2023 End: 07-23-2023 Alcohol intake Current drinker of alcohol (finding) [facility] Start: 04-14-2023 End: 07-15-2023 History of Social function [facility] How often to you hav e a drink containing alcohol? Monthly or less [facility] How many standard drinks containing alcohol do you have on a typical day? 1 or 2 [facility] How often do you hav e 6 or more drinks on 1 occasion? Never [facility] Start: 04-14-2023 Alcohol Comment caffeine intak e: 1-2 cups per day [facility] Start: 1955 Sex Assigned At Not on file [facility] Start: 1955 Sex Assigned At Female [facility] Start: 07-09-2024 End: 10-01-2024 Sex Female (finding) [facility] Functional Status Date Assessment Result Facility 03-01-2022 Functional Status No [facility] Clinical Notes 02-18-2022 to 07-09-2024 Note Date & Type Note Facility 07-09-2024 Evaluation note Authored July 09, 2024 1:50pm Highest weight: 174 lbs. She is down 14.6lbs. Start weight: 168.6 lbs. She is down 9.2 lbs. today with a weight of 159.4 lbs she is up 0.7 from her last visit 04/12/2024. Starting Date: 08-28-2023. She was on full dose Contrave before starting the program. She was a nonresponder after 3 months of treatment being just down about 5 pounds since she started Contrave. On Semaglutide/ Buderer 1. Abnormal weight gain. She has a strong family history of obesity and good response to GLP-1 agonists. 2. Overweight- improved with a greater than 5% slow weight loss now with compounded semaglutide 0.6mg without side effects. She had hoped to get to 150 pounds but we discussed the need to try to add more muscle and lose some unhealthy fat. She is going to slowly add some strength training and increase her cardio. She is now eating much healthier overall/following the plate method. She still continues to add more vegetables and is getting adequate lean protein. She should continue to follow plate method. She feels good. She should continue long-term healthy lifestyle change with following up closely with our pharmacy account director. She is now getting regular exercise with walking 4-5 times a week and she has increased her activity. She should start adding some strength training with our process trainer. She was just exercising 1 day a week before starting the program. Her waist circumference was 39 inches with starting the program and her percent body fat was 42.2% by bioimpedance. Her BMI was 28 with starting the program. She notes that her PCP tried her first on Adipex without success. For starting the program she did feel that she eats healthy but she previously did not eat enough lean protein, vegetables or whole fruits and ends up getting more carbohydrates and some processed snacks. She is now eating healthy Whole Foods. She will treat with long-term lifestyle changes of improved nutrition, increased exercise and activity, stress reduction, adequate sleep and behavioral modification versus short-term dieting. Behavioral: The patient's previous eating habits prior to starting our program good. Before starting the program the biggest reasons for weight struggles include health issues. Exercise before starting the program: yes 1 x week. She likes to go out and walk. She is from [place]. She denies any known heart issues but was found to have a right bundle branch block on past EKG the on that ER visit 01/28/2021. Her blood pressure has been elevated here but she notes it is always normal when she checks it with her primary care doctor or where. She felt she ate very healthy but has not been able to lose weight. 3. Hypercholesterolemia-should be improving with healthier eating. Her risk of heart disease is going down with decreased abdominal circumference, healthier eating and increased exercise. Continue to treat with decreasing the bad fats, added fats, increase activity and exercise and achieve long-term weight loss. LDL significantly elevated at 166.8 measured on 09/29/2021. Monitor. Consider statin. 4. Hypothyroidism-on replacement. Treated by her PCP. 5. Right bundle branch block by old EKG in 2020-denies any cardiac history or symptoms. 6. Increased blood pressure rule out hypertension-improved. She will continue to treat with a low-salt diet, decreased processed and restaurant foods, healthy lifestyle changes and achieve long-term weight loss. Continue to monitor outside the office. 7. Constipation- it is relieved with nighttime magnesium. Monitor with adding semaglutide. Follow up with me in 6-8 weeks. New labs needed: She will be due for yearly blood work again with her PCP in November or December. She needs close follow-up of her elevated LDL cholesterol around 6-12 months after following up with our program. No cholesterol was done in but at this point she would like just to wait until her summer blood work to have her cholesterol checked. We would probably not add a statin even if her LDL remains high. She is metabolically healthy. She had an A1c 10/2022 of 5.2 along with a normal fasting blood sugar of 95. Author [facility] Authored October 01, 2024 11: 15am Highest weight: 174 lbs. She is down 13.5 lbs. Start weight: 168.6 lbs. She is down 8.1 lbs. today with a weight of 160.5 lbs she is up 1.1 from her last visit 07/09/24. Starting Date: 08-28-2023. She was on full dose Contrave before starting the program. She was a nonresponder after 3 months of treatment being just down about 5 pounds since she started Contrave. On Semaglutide/ Buderer 1. Abnormal weight gain. She has a strong family history of obesity and good response to GLP-1 agonists. 2. Overweight- improved with a greater than 5% slow weight loss now with compounded semaglutide 0.6mg without side effects. She had hoped to get to 150 pounds but we discussed the need to try to add more muscle and lose some unhealthy fat. She is going to slowly add some strength training and increase her cardio. She is now eating much healthier overall/following the plate method. She still continues to add more vegetables and is getting adequate lean protein. She should continue to follow plate method. She feels good. She should continue long-term healthy lifestyle change with following up closely with our pharmacy account director. She is now getting regular exercise with walking 4-5 times a week and she has increased her activity. She should start adding some strength training with our process trainer. She was just exercising 1 day a week before starting the program. Her waist circumference was 39 inches with starting the program and her percent body fat was 42.2% by bioimpedance. Her BMI was 28 with starting the program. She notes that her PCP tried her first on Adipex without success. For starting the program she did feel that she eats healthy but she previously did not eat enough lean protein, vegetables or whole fruits and ends up getting more carbohydrates and some processed snacks. She is now eating healthy Whole Foods. She will treat with long-term lifestyle changes of improved nutrition, increased exercise and activity, stress reduction, adequate sleep and behavioral modification versus short-term dieting. Behavioral: The patient's previous eating habits prior to starting our program good. Before starting the program the biggest reasons for weight struggles include health issues. Exercise before starting the program: yes 1 x week. She likes to go out and walk. She is from [place]. She denies any known heart issues but was found to have a right bundle branch block on past EKG the on that ER visit 01/28/2021. Her blood pressure has been elevated here but she notes it is always normal when she checks it with her primary care doctor or where. She felt she ate very healthy but has not been able to lose weight. 3. Hypercholesterolemia-should be improving with healthier eating. Her risk of heart disease is going down with decreased abdominal circumference, healthier eating and increased exercise. Continue to treat with decreasing the bad fats, added fats, increase activity and exercise and achieve long-term weight loss. LDL significantly elevated at 166.8 measured on 09/29/2021. Monitor. Consider statin. 4. Hypothyroidism-on replacement. Treated by her PCP. 5. Right bundle branch block by old EKG in 2020-denies any cardiac history or symptoms. 6. Increased blood pressure rule out hypertension-improved. She will continue to treat with a low-salt diet, decreased processed and restaurant foods, healthy lifestyle changes and achieve long-term weight loss. Continue to monitor outside the office. 7. Constipation- it is relieved with nighttime magnesium. Monitor with adding semaglutide. Follow up with me in 6-8 weeks. New labs needed: She will be due for yearly blood work again with her PCP in November or December. She needs close follow-up of her elevated LDL cholesterol around 6-12 months after following up with our program. No cholesterol was done in but at this point she would like just to wait until her summer blood work to have her cholesterol checked. We would probably not add a statin even if her LDL remains high. She is metabolically healthy. She had an A1c 10/2022 of 5.2 along with a normal fasting blood sugar of 95. [facility] Work Phone: [phone]) 621-899811-04-2024 Evaluation note* Author Zak Gordon [facility] Authored April 12, 2024 1 1:32am Highest weight: 174 lbs. She is down 15.3lbs. Start weight: 168.6 lbs. She is down 9.9 lbs. today with a weight of 158.7 lbs she is down 2.2 from her last visit 01/22/2024. Starting Date: 08-28-2023. She was on full dose Contrave before starting the program. She was a nonresponder after 3 months of treatment being just down about 5 pounds since she started Contrave. On Semaglutide/ Buderer 1. Abnormal weight gain. She has a strong family history of obesity and good response to GLP-1 agonists. 2. Overweight- improved with a greater than 5% slow weight loss now with compounded semaglutide 0.6mg without side effects. She is eating much healthier overall. She still needs to add more vegetables and fruit hopefully at least 1 or the other of these with each meal. She should follow plate method. She is happy with slow hopefully sustainable weight loss. She should continue long-term healthy lifestyle change with following up closely with our pharmacy account director. She is now getting regular exercise with walking 4-5 times a week and she has increased her activity. She should start adding some strength training with our process trainer. She was just exercising 1 day a week before starting the program. Her waist circumference was 39 inches with starting the program and her percent body fat was 42.2% by bioimpedance. Her BMI was 28 with starting the program. She notes that her PCP tried her first on Adipex without success. For starting the program she did feel that she eats healthy but she previously did not eat enough lean protein, vegetables or whole fruits and ends up getting more carbohydrates and some processed snacks. She is now eating healthy Whole [employer]. She will treat with long-term lifestyle changes of improved nutrition, increased exercise and activity, stress reduction, adequate sleep and behavioral modification versus short-term dieting. Behavioral: The patient's previous eating habits prior to starting our program good. Before starting the program the biggest reasons for weight struggles include health issues. Exercise before starting the program: yes 1 x week. She likes to go out and walk. She is from [place]. She denies any known heart issues but was found to have a right bundle branch block on past EKG the on that ER visit 01/28/2021. Her blood pressure has been elevated here but she notes it is always normal when she checks it with her primary care doctor or where. She felt she ate very healthy but has not been able to lose weight. 3. Hypercholesterolemia- improving with healthier eating. Her risk of heart disease is going down with decreased abdominal circumference, healthier eating and increased exercise. Continue to treat with decreasing the bad fats, added fats, increase activity and exercise and achieve long-term weight loss. LDL significantly elevated at 166.8 measured on 09/29/2021. Monitor. Consider statin. 4. Hypothyroidism-on replacement. Treated by her PCP. 5. Right bundle branch block by old EKG in 2020-denies any cardiac history or symptoms. 6. Increased blood pressure rule out hypertension-improved. She will continue to treat with a low-salt diet, decreased processed and restaurant foods, healthy lifestyle changes and achieve long-term weight loss. Continue to monitor outside the office. 7. Constipation- it is relieved with nighttime magnesium. Monitor with adding semaglutide. Follow up with me in 6-8 weeks. New labs needed: She will be due for yearly blood work again with her PCP. She needs close follow-up of her elevated LDL cholesterol around 6-12 months after following up with our program. She is metabolically healthy. She had an A1c 10/2022 of 5.2 along with a normal fasting blood sugar of 95. Author Shannon Mg [facility] Authored July 09, 2024 1 1:55am Highest weight: 174 lbs. She is down 14.6lbs. Start weight: 168.6 lbs. She is down 9.2 lbs. today with a weight of 159.4 lbs she is up 0.7 from her last visit 04/12/2024. Starting Date: 08-28-2023. She was on full dose Contrave before starting the program. She was a nonresponder after 3 months of treatment being just down about 5 pounds since she started Contrave. On Semaglutide/ Buderer 1. Abnormal weight gain. She has a strong family history of obesity and good response to GLP-1 agonists. 2. Overweight- improved with a greater than 5% slow weight loss now with compounded semaglutide 0.6mg without side effects. She is eating much healthier overall. She still needs to add more vegetables and fruit hopefully at least 1 or the other of these with each meal. She should follow plate method. She is happy with slow hopefully sustainable weight loss. She should continue long-term healthy lifestyle change with following up closely with our pharmacy account director. She is now getting regular exercise with walking 4-5 times a week and she has increased her activity. She should start adding some strength training with our process trainer. She was just exercising 1 day a week before starting the program. Her waist circumference was 39 inches with starting the program and her percent body fat was 42.2% by bioimpedance. Her BMI was 28 with starting the program. She notes that her PCP tried her first on Adipex without success. For starting the program she did feel that she eats healthy but she previously did not eat enough lean protein, vegetables or whole fruits and ends up getting more carbohydrates and some processed snacks. She is now eating healthy Whole Foods. She will treat with long-term lifestyle changes of improved nutrition, increased exercise and activity, stress reduction, adequate sleep and behavioral modification versus short-term dieting. Behavioral: The patient's previous eating habits prior to starting our program good. Before starting the program the biggest reasons for weight struggles include health issues. Exercise before starting the program: yes 1 x week. She likes to go out and walk. She is from [place]. She denies any known heart issues but was found to have a right bundle branch block on past EKG the on that ER visit 01/28/2021. Her blood pressure has been elevated here but she notes it is always normal when she checks it with her primary care doctor or where. She felt she ate very healthy but has not been able to lose weight. 3. Hypercholesterolemia- improving with healthier eating. Her risk of heart disease is going down with decreased abdominal circumference, healthier eating and increased exercise. Continue to treat with decreasing the bad fats, added fats, increase activity and exercise and achieve long-term weight loss. LDL significantly elevated at 166.8 measured on 09/29/2021. Monitor. Consider statin. 4. Hypothyroidism-on replacement. Treated by her PCP. 5. Right bundle branch block by old EKG in 2020-denies any cardiac history or symptoms. 6. Increased blood pressure rule out hypertension-improved. She will continue to treat with a low-salt diet, decreased processed and restaurant foods, healthy lifestyle changes and achieve long-term weight loss. Continue to monitor outside the office. 7. Constipation- it is relieved with nighttime magnesium. Monitor with adding semaglutide. Follow up with me in 6-8 weeks. New labs needed: She will be due for yearly blood work again with her PCP. She needs close follow-up of her elevated LDL cholesterol around 6-12 months after following up with our program. She is metabolically healthy. She had an A1c 10/2022 of 5.2 along with a normal fasting blood sugar of 95. [facility] Work Phone: [phone] 624-343808-15-2024 Evaluation note* Author Zak Gordon [facility] Authored January 22, 2024 1: 30pm Highest weight: 174 lbs. She is down 13.1lbs. Start weight: 168.6 lbs. She is down 7.7 lbs. today with a weight of 160.9 lbs she is down 1.4 from her last visit 12/26/2023. Starting Date: 08-28-2023. She was on full dose Contrave before starting the program. She was a nonresponder after 3 months of treatment being just down about 5 pounds since she started Contrave. 1. Abnormal weight gain. She has a strong family history of obesity and good response to GLP-1 agonists. 2. Overweight- Improved now with compounded semaglutide 0.6mg without side effects. She is eating much healthier and following the plate method. She is happy with slow hopefully sustainable weight loss. She should continue long-term healthy lifestyle change with following up closely with our pharmacy account director. She is now getting regular exercise. She will continue increasing exercise as she is now walking 5 or 6 times a week and increased her activity. She should consider adding some strength training with her process trainer. She was just exercising 1 day a week before starting the program. Her waist circumference was 39 inches with starting the program and her percent body fat was 42.2% by bioimpedance. Her BMI was 28 with starting the program. She notes that her PCP tried her first on Adipex without success. For starting the program she did feel that she eats healthy but she previously did not eat enough lean protein, vegetables or whole fruits and ends up getting more carbohydrates and some processed snacks. She is now eating healthy [employer]. She will treat with long-term lifestyle changes of improved nutrition, increased exercise and activity, stress reduction, adequate sleep and behavioral modification versus short-term dieting. Behavioral: The patient's previous eating habits prior to starting our program good. Before starting the program the biggest reasons for weight struggles include health issues. Exercise before starting the program: yes 1 x week. She likes to go out and walk. She is from [place]. She denies any known heart issues but was found to have a right bundle branch block on past EKG the on that ER visit 01/28/2021. Her blood pressure has been elevated here but she notes it is always normal when she checks it with her primary care doctor or where. She felt she ate very healthy but has not been able to lose weight. 3. Hypercholesterolemia- improving with healthier eating. Continue to treat with decreasing the bad fats, added fats, increase activity and exercise and achieve long-term weight loss. LDL significantly elevated at 166.8 measured on 09/29/2021. Monitor. Consider statin. 4. Hypothyroidism-on replacement. Treated by her PCP. 5. Right bundle branch block by old EKG in 2020-denies any cardiac history or symptoms. 6. Increased blood pressure rule out hypertension-improved. She will continue to treat with a low-salt diet, decreased processed and restaurant foods, healthy lifestyle changes and achieve long-term weight loss. Continue to monitor outside the office. 7. Constipation- it is relieved with nighttime magnesium. Monitor with adding semaglutide. Follow up with me in 6 weeks. New labs needed: She will be due for yearly blood work again with her PCP. She needs close follow-up of her elevated LDL cholesterol around 6-12 months after following up with our program. She is metabolically healthy. She had an A1c 10/2022 of 5.2 along with a normal fasting blood sugar of 95. Author Shannon Mg [facility] Authored April 12, 2024 1 1:09am Highest weight: 174 lbs. She is down 15.3lbs. Start weight: 168.6 lbs. She is down 9.9 lbs. today with a weight of 158.7 lbs she is down 2.2 from her last visit 01/22/2024. Starting Date: 08-28-2023. She was on full dose Contrave before starting the program. She was a nonresponder after 3 months of treatment being just down about 5 pounds since she started Contrave. On Semaglutide/ Buderer 1. Abnormal weight gain. She has a strong family history of obesity and good response to GLP-1 agonists. 2. Overweight- Improved now with compounded semaglutide 0.6mg without side effects. She is eating much healthier and following the plate method. She is happy with slow hopefully sustainable weight loss. She should continue long-term healthy lifestyle change with following up closely with our pharmacy account director. She is now getting regular exercise. She will continue increasing exercise as she is now walking 5 or 6 times a week and increased her activity. She should consider adding some strength training with her process trainer. She was just exercising 1 day a week before starting the program. Her waist circumference was 39 inches with starting the program and her percent body fat was 42.2% by bioimpedance. Her BMI was 28 with starting the program. She notes that her PCP tried her first on Adipex without success. For starting the program she did feel that she eats healthy but she previously did not eat enough lean protein, vegetables or whole fruits and ends up getting more carbohydrates and some processed snacks. She is now eating healthy Whole Foods. She will treat with long-term lifestyle changes of improved nutrition, increased exercise and activity, stress reduction, adequate sleep and behavioral modification versus short-term dieting. Behavioral: The patient's previous eating habits prior to starting our program good. Before starting the program the biggest reasons for weight struggles include health issues. Exercise before starting the program: yes 1 x week. She likes to go out and walk. She is from [place]. She denies any known heart issues but was found to have a right bundle branch block on past EKG the on that ER visit 01/28/2021. Her blood pressure has been elevated here but she notes it is always normal when she checks it with her primary care doctor or where. She felt she ate very healthy but has not been able to lose weight. 3. Hypercholesterolemia- improving with healthier eating. Continue to treat with decreasing the bad fats, added fats, increase activity and exercise and achieve long-term weight loss. LDL significantly elevated at 166.8 measured on 09/29/2021. Monitor. Consider statin. 4. Hypothyroidism-on replacement. Treated by her PCP. 5. Right bundle branch block by old EKG in 2020-denies any cardiac history or symptoms. 6. Increased blood pressure rule out hypertension-improved. She will continue to treat with a low-salt diet, decreased processed and restaurant foods, healthy lifestyle changes and achieve long-term weight loss. Continue to monitor outside the office. 7. Constipation- it is relieved with nighttime magnesium. Monitor with adding semaglutide. Follow up with me in 6 weeks. New labs needed: She will be due for yearly blood work again with her PCP. She needs close follow-up of her elevated LDL cholesterol around 6-12 months after following up with our program. She is metabolically healthy. She had an A1c 10/2022 of 5.2 along with a normal fasting blood sugar of 95. [facility] Work Phone: [phone] 780-790807-19-2024 Evaluation note* Author Zak Gordon [facility] Authored December 26, 2023 11:3 2am Highest weight: 174lbs. She is down 11.7lbs. Start weight: 168.6 lbs.She is down 6.3 lbs. today with a weight of 162.3 lbs she is down 2.5 from her last visit 11/20/2023. Starting Date: 08-28-2023. She was on full dose Contrave before starting the program. She was a nonresponder after 3 months of treatment being just down about 5 pounds since she started Contrave. 1. Abnormal weight gain. She has a strong family history of obesity and good response to GLP-1 agonists. 2. Obesity- Improved now with compounded semaglutide 0.6mg. With Contrave was non-responder. 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 Her waist circumference was 39 inches with starting the program and her percent body fat was 42.2% by bioimpedance. Her BMI was 28 with starting the program. She notes that her PCP tried her first on Adipex without success. She does feel that she eats healthy but she does not eat enough lean protein, vegetables or whole fruits and ends up getting more carbohydrates and some processed snacks. She will treat with long-term lifestyle changes of improved nutrition, increased exercise and activity, stress reduction, adequate sleep and behavioral modification versus short-term dieting. Behavioral: The patient's previous eating habits prior to starting our program good. Before starting the program the biggest reasons for weight struggles include health issues. Exercise before starting the program: yes 1 x week. She likes to go out and walk. She is from [place]. She did have a bout of alcohol intoxication back in 2020 but she notes she only rarely uses alcohol, that was a one-time event. She denies any known heart issues but was found to have a right bundle branch block on past EKG the on that ER visit 01/28/2021. Her blood pressure has been elevated here but she notes it is always normal when she checks it with her primary care doctor or where. She felt she ate very healthy but has not been able to lose weight. 3. Hypercholesterolemia- improving with healthier eating. Continue to treat with decreasing the bad fats, added fats, increase activity and exercise and achieve long-term weight loss. LDL significantly elevated at 166.8 measured on 09/29/2021. Monitor. Consider statin. 4. Hypothyroidism-on replacement. Treated by her PCP. 5. Right bundle branch block by old EKG in 2020-denies any cardiac history or symptoms. 6. Increased blood pressure rule out hypertension-treat with a low-salt diet, decreased processed and restaurant foods, healthy lifestyle changes and achieve long-term weight loss. Continue to monitor outside the office. 7. Constipation- it is relieved with nighttime magnesium. Monitor with adding semaglutide. 8. 1 spell of alcohol intoxication seen here at our hospital 01/28/2021. She denies any significant alcohol use otherwise, now just rare. Follow up with me in 6 weeks. New labs needed: She will be due for yearly blood work again with her PCP. She needs close follow-up of her elevated LDL cholesterol around 6 months after following up with our program. She is metabolically healthy. She had an A1c 10/2022 of 5.2 along with a normal fasting blood sugar of 95. Author Shannon Mg [facility] Authored January 22, 2024 2: 12pm Highest weight: 174 lbs. She is down 13.1lbs. Start weight: 168.6 lbs. She is down 7.7 lbs. today with a weight of 160.9 lbs she is down 1.4 from her last visit 12/26/2023. Starting Date: 08-28-2023. She was on full dose Contrave before starting the program. She was a nonresponder after 3 months of treatment being just down about 5 pounds since she started Contrave. 1. Abnormal weight gain. She has a strong family history of obesity and good response to GLP-1 agonists. 2. Obesity- Improved now with compounded semaglutide 0.6mg. With Contrave was non-responder. 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 Her waist circumference was 39 inches with starting the program and her percent body fat was 42.2% by bioimpedance. Her BMI was 28 with starting the program. She notes that her PCP tried her first on Adipex without success. She does feel that she eats healthy but she does not eat enough lean protein, vegetables or whole fruits and ends up getting more carbohydrates and some processed snacks. She will treat with long-term lifestyle changes of improved nutrition, increased exercise and activity, stress reduction, adequate sleep and behavioral modification versus short-term dieting. Behavioral: The patient's previous eating habits prior to starting our program good. Before starting the program the biggest reasons for weight struggles include health issues. Exercise before starting the program: yes 1 x week. She likes to go out and walk. She is from [place]. She did have a bout of alcohol intoxication back in 2020 but she notes she only rarely uses alcohol, that was a one-time event. She denies any known heart issues but was found to have a right bundle branch block on past EKG the on that ER visit 01/28/2021. Her blood pressure has been elevated here but she notes it is always normal when she checks it with her primary care doctor or where. She felt she ate very healthy but has not been able to lose weight. 3. Hypercholesterolemia- improving with healthier eating. Continue to treat with decreasing the bad fats, added fats, increase activity and exercise and achieve long-term weight loss. LDL significantly elevated at 166.8 measured on 09/29/2021. Monitor. Consider statin. 4. Hypothyroidism-on replacement. Treated by her PCP. 5. Right bundle branch block by old EKG in 2020-denies any cardiac history or symptoms. 6. Increased blood pressure rule out hypertension-treat with a low-salt diet, decreased processed and restaurant foods, healthy lifestyle changes and achieve long-term weight loss. Continue to monitor outside the office. 7. Constipation- it is relieved with nighttime magnesium. Monitor with adding semaglutide. 8. 1 spell of alcohol intoxication seen here at our hospital 01/28/2021. She denies any significant alcohol use otherwise, now just rare. Follow up with me in 6 weeks. New labs needed: She will be due for yearly blood work again with her PCP. She needs close follow-up of her elevated LDL cholesterol around 6 months after following up with our program. She is metabolically healthy. She had an A1c 10/2022 of 5.2 along with a normal fasting blood sugar of 95. Author Zak Gordon [facility] Authored November 20, 2023 3:48 pm Highest weight: 174lbs. She is down 5.1 lbs. Start weight: 168.6 lbs.She is up 0.3 lbs. today with a weight of 168.9 lbs. last visit 08/28/2023. Starting Date: 08-28-2023. She was on full dose Contrave before starting the program. She was a nonresponder after 3 months of treatment being just down about 5 pounds since she started Contrave. 1. Abnormal weight gain. She has a strong family history of obesity and good response to GLP-1 agonists. 2. Obesity- Improved now with compounded semaglutide. With Contrave was non-responder. 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 Her waist circumference was 39 inches with starting the program and her percent body fat was 42.2% by bioimpedance. Her BMI was 28 with starting the program. She notes that her PCP tried her first on Adipex without success. She does feel that she eats healthy but she does not eat enough lean protein, vegetables or whole fruits and ends up getting more carbohydrates and some processed snacks. She will treat with long-term lifestyle changes of improved nutrition, increased exercise and activity, stress reduction, adequate sleep and behavioral modification versus short-term dieting. Behavioral: The patient's previous eating habits prior to starting our program good. Before starting the program the biggest reasons for weight struggles include health issues. Exercise before starting the program: yes 1 x week. She likes to go out and walk. She is from [place]. She did have a bout of alcohol intoxication back in 2020 but she notes she only rarely uses alcohol, that was a one-time event. She denies any known heart issues but was found to have a right bundle branch block on past EKG the on that ER visit 01/28/2021. Her blood pressure has been elevated here but she notes it is always normal when she checks it with her primary care doctor or where. She felt she ate very healthy but has not been able to lose weight. 3. Hypercholesterolemia-should be improving with healthier eating. Continue to treat with decreasing the bad fats, added fats, increase activity and exercise and achieve long-term weight loss. LDL significantly elevated at 166.8 measured on 09/29/2021. Monitor. Consider statin. 4. Hypothyroidism-on replacement. Treated by her PCP. 5. Right bundle branch block by old EKG in 2020-denies any cardiac history or symptoms. 6. Increased blood pressure rule out hypertension-treat with a low-salt diet, decreased processed and restaurant foods, healthy lifestyle changes and achieve long-term weight loss. Monitor outside the office. 7. Constipation- it is relieved with nighttime magnesium. Monitor with adding semaglutide. 8. 1 spell of alcohol intoxication seen here at our hospital 01/28/2021. She denies any significant alcohol use now just rare. Follow up with me in 6 weeks. New labs needed: She will be due for yearly blood work again with her PCP. She needs close follow-up of her elevated LDL cholesterol around 6 months after following up with our program. She is metabolically healthy. She had an A1c 10/2022 of 5.2 along with a normal fasting blood sugar of 95. [facility] Work Phone: 1([phone]) [phone] Evaluation note* Author Lucila Michel [facility] Authored December 26, 2023 10:5 2am Highest weight: 174lbs. She is down 11.7lbs. Start weight: 168.6 lbs.She is down 6.3 lbs. today with a weight of 162.3 lbs she is down 2.5 from her last visit 11/20/2023. Starting Date: 08-28-2023. She was on full dose Contrave before starting the program. She was a nonresponder after 3 months of treatment being just down about 5 pounds since she started Contrave. 1. Abnormal weight gain. She has a strong family history of obesity and good response to GLP-1 agonists. 2. Obesity- Improved now with compounded semaglutide. With Contrave was non-responder. 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 Her waist circumference was 39 inches with starting the program and her percent body fat was 42.2% by bioimpedance. Her BMI was 28 with starting the program. She notes that her PCP tried her first on Adipex without success. She does feel that she eats healthy but she does not eat enough lean protein, vegetables or whole fruits and ends up getting more carbohydrates and some processed snacks. She will treat with long-term lifestyle changes of improved nutrition, increased exercise and activity, stress reduction, adequate sleep and behavioral modification versus short-term dieting. Behavioral: The patient's previous eating habits prior to starting our program good. Before starting the program the biggest reasons for weight struggles include health issues. Exercise before starting the program: yes 1 x week. She likes to go out and walk. She is from [place]. She did have a bout of alcohol intoxication back in 2020 but she notes she only rarely uses alcohol, that was a one-time event. She denies any known heart issues but was found to have a right bundle branch block on past EKG the on that ER visit 01/28/2021. Her blood pressure has been elevated here but she notes it is always normal when she checks it with her primary care doctor or where. She felt she ate very healthy but has not been able to lose weight. 3. Hypercholesterolemia-should be improving with healthier eating. Continue to treat with decreasing the bad fats, added fats, increase activity and exercise and achieve long-term weight loss. LDL significantly elevated at 166.8 measured on 09/29/2021. Monitor. Consider statin. 4. Hypothyroidism-on replacement. Treated by her PCP. 5. Right bundle branch block by old EKG in 2020-denies any cardiac history or symptoms. 6. Increased blood pressure rule out hypertension-treat with a low-salt diet, decreased processed and restaurant foods, healthy lifestyle changes and achieve long-term weight loss. Monitor outside the office. 7. Constipation- it is relieved with nighttime magnesium. Monitor with adding semaglutide. 8. 1 spell of alcohol intoxication seen here at our hospital 01/28/2021. She denies any significant alcohol use now just rare. Follow up with me in 6 weeks. New labs needed: She will be due for yearly blood work again with her PCP. She needs close follow-up of her elevated LDL cholesterol around 6 months after following up with our program. She is metabolically healthy. She had an A1c 10/2022 of 5.2 along with a normal fasting blood sugar of 95. Author Zak Gordon [facility] Authored October 09, 2023 11:48a m Highest weight: 174lbs. She is down 5.1 lbs. Start weight: 168.6 lbs.She is up 0.3 lbs. today with a weight of 168.9 lbs. last visit 08/28/2023. Starting Date: 08-28-2023. She was on full dose Contrave before starting the program. She was a nonresponder after 3 months of treatment being just down about 5 pounds since she started Contrave. 1. Abnormal weight gain. She has a strong family history of obesity and good response to GLP-1 agonists. 2. Obesity-minimal improvement with full dose Contrave x 3 months/nonresponder. She would like to start compounded semaglutide if no significant side effects or problems. She felt somewhat better on the medication but does not have a history of depression, PHQ-9 was 5 with starting the program. We could consider using Wellbutrin in the future. Her mood seems very good at this time. 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 Her weight circumference was 39 inches with starting the program and her percent body fat was 42.2% by bioimpedance. Her BMI was 28 with starting the program. We discussed that she does not have a definite weight related comorbidity and at this point does not qualify for weight loss medication. She notes that her PCP tried her first on Adipex without success. We discussed trying compounded semaglutide if she struggles in the future despite nonpharmacologic therapy/healthy lifestyle change. She does feel that she eats healthy but she does not eat enough lean protein, vegetables or whole fruits and ends up getting more carbohydrates and some processed snacks. The patient will treat with long-term lifestyle changes of improved nutrition, increased exercise and activity, stress reduction, adequate sleep and behavioral modification versus short-term dieting. Behavioral: The patient's previous eating habits prior to starting our program good. Before starting the program the biggest reasons for weight struggles include health issues. Exercise before starting the program: yes 1 x week. She likes to go out and walk. She is from [place] so it will be hard for her to start exercise with her process trainer but we could give her a home exercise program which would include strength training. She has been wanting to lose weight for the last couple years. She notes that she has had some chronic tiredness and it seems to be a little helpful for that. She was Adipex helped her some of her fatigue. She does not have a lot of weight related comorbidities. Her hypercholesterolemia may be more genetic as her triglycerides and HDL are normal. Her weight is dropped from 174 pounds to 168.6 since being on the Contrave which is only a 5.4 pound loss which is not a definite responder. She is on her thyroid replacement. She did have a bout of alcohol intoxication back in 2020 but she notes she only rarely uses alcohol, that was a one-time event. She denies any known heart issues but was found to have a right bundle branch block on past EKG the on that ER visit 01/28/2021. Her blood pressure has been elevated here but she notes it is always normal when she checks it with her primary care doctor or where. She feels she eats very healthy but is not been able to lose weight. Her 24-hour food diary starting the program did not show an protein, breakfast was a piece of Demi Uriel wheat bread with peanut butter, midmorning snack granola bar, lunch have a hamburger marco with vegetables, and her egg omelette, toast and a few hashbrowns, evening snack skinny pop popcorn and an apple. She notes she will often have breakfast but then wait till 3:00 in the afternoon to eat lunch and eat more for food later in the day. 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 3. Hypercholesterolemia-should be improving with healthier eating. Continue to treat with decreasing the bad fats, added fats, increase activity and exercise and achieve long-term weight loss. LDL significantly elevated at 166.8 measured on 09/29/2021. Monitor. Consider statin. 4. Hypothyroidism-on replacement. Treated by her PCP. 5. Right bundle branch block by old EKG in 2020-denies any cardiac history or symptoms. 6. Increased blood pressure rule out hypertension-treat with a low-salt diet, decreased processed and restaurant foods, healthy lifestyle changes and achieve long-term weight loss. Monitor outside the office. 7. Constipation-it seems to be related to her Contrave. She notes it is relieved with nighttime magnesium. Monitor with adding semaglutide. 8. 1 spell of alcohol intoxication seen here at our hospital 01/28/2021. She denies any significant alcohol use now just rare. Follow up with me in 6 weeks. New labs needed: She will be due for yearly blood work again 10/2023 if not done by her PCP. She needs close follow-up of her elevated LDL cholesterol. She is otherwise metabolically healthy. She had an A1c 10/2022 of 5.2 along with a normal fasting blood sugar of 95. Author Zak Gordon [facility] Authored November 20, 2023 3:48 pm Highest weight: 174lbs. She is down 5.1 lbs. Start weight: 168.6 lbs.She is up 0.3 lbs. today with a weight of 168.9 lbs. last visit 08/28/2023. Starting Date: 08-28-2023. She was on full dose Contrave before starting the program. She was a nonresponder after 3 months of treatment being just down about 5 pounds since she started Contrave. 1. Abnormal weight gain. She has a strong family history of obesity and good response to GLP-1 agonists. 2. Obesity- Improved now with compounded semaglutide. With Contrave was non-responder. 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 Her waist circumference was 39 inches with starting the program and her percent body fat was 42.2% by bioimpedance. Her BMI was 28 with starting the program. She notes that her PCP tried her first on Adipex without success. She does feel that she eats healthy but she does not eat enough lean protein, vegetables or whole fruits and ends up getting more carbohydrates and some processed snacks. She will treat with long-term lifestyle changes of improved nutrition, increased exercise and activity, stress reduction, adequate sleep and behavioral modification versus short-term dieting. Behavioral: The patient's previous eating habits prior to starting our program good. Before starting the program the biggest reasons for weight struggles include health issues. Exercise before starting the program: yes 1 x week. She likes to go out and walk. She is from [place]. She did have a bout of alcohol intoxication back in 2020 but she notes she only rarely uses alcohol, that was a one-time event. She denies any known heart issues but was found to have a right bundle branch block on past EKG the on that ER visit 01/28/2021. Her blood pressure has been elevated here but she notes it is always normal when she checks it with her primary care doctor or where. She felt she ate very healthy but has not been able to lose weight. 3. Hypercholesterolemia-should be improving with healthier eating. Continue to treat with decreasing the bad fats, added fats, increase activity and exercise and achieve long-term weight loss. LDL significantly elevated at 166.8 measured on 09/29/2021. Monitor. Consider statin. 4. Hypothyroidism-on replacement. Treated by her PCP. 5. Right bundle branch block by old EKG in 2020-denies any cardiac history or symptoms. 6. Increased blood pressure rule out hypertension-treat with a low-salt diet, decreased processed and restaurant foods, healthy lifestyle changes and achieve long-term weight loss. Monitor outside the office. 7. Constipation- it is relieved with nighttime magnesium. Monitor with adding semaglutide. 8. 1 spell of alcohol intoxication seen here at our hospital 01/28/2021. She denies any significant alcohol use now just rare. Follow up with me in 6 weeks. New labs needed: She will be due for yearly blood work again with her PCP. She needs close follow-up of her elevated LDL cholesterol around 6 months after following up with our program. She is metabolically healthy. She had an A1c 10/2022 of 5.2 along with a normal fasting blood sugar of 95. [facility] Work Phone: [phone]) 952-850305-02-2024 Evaluation note* Author Zak Gordon [facility] Authored October 09, 2023 11:48a m Highest weight: 174lbs. She is down 5.1 lbs. Start weight: 168.6 lbs.She is up 0.3 lbs. today with a weight of 168.9 lbs. last visit 08/28/2023. Starting Date: 08-28-2023. She was on full dose Contrave before starting the program. She was a nonresponder after 3 months of treatment being just down about 5 pounds since she started Contrave. 1. Abnormal weight gain. She has a strong family history of obesity and good response to GLP-1 agonists. 2. Obesity-minimal improvement with full dose Contrave x 3 months/nonresponder. She would like to start compounded semaglutide if no significant side effects or problems. She felt somewhat better on the medication but does not have a history of depression, PHQ-9 was 5 with starting the program. We could consider using Wellbutrin in the future. Her mood seems very good at this time. 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 Her weight circumference was 39 inches with starting the program and her percent body fat was 42.2% by bioimpedance. Her BMI was 28 with starting the program. We discussed that she does not have a definite weight related comorbidity and at this point does not qualify for weight loss medication. She notes that her PCP tried her first on Adipex without success. We discussed trying compounded semaglutide if she struggles in the future despite nonpharmacologic therapy/healthy lifestyle change. She does feel that she eats healthy but she does not eat enough lean protein, vegetables or whole fruits and ends up getting more carbohydrates and some processed snacks. The patient will treat with long-term lifestyle changes of improved nutrition, increased exercise and activity, stress reduction, adequate sleep and behavioral modification versus short-term dieting. Behavioral: The patient's previous eating habits prior to starting our program good. Before starting the program the biggest reasons for weight struggles include health issues. Exercise before starting the program: yes 1 x week. She likes to go out and walk. She is from [place] so it will be hard for her to start exercise with her process trainer but we could give her a home exercise program which would include strength training. She has been wanting to lose weight for the last couple years. She notes that she has had some chronic tiredness and it seems to be a little helpful for that. She was Adipex helped her some of her fatigue. She does not have a lot of weight related comorbidities. Her hypercholesterolemia may be more genetic as her triglycerides and HDL are normal. Her weight is dropped from 174 pounds to 168.6 since being on the Contrave which is only a 5.4 pound loss which is not a definite responder. She is on her thyroid replacement. She did have a bout of alcohol intoxication back in 2020 but she notes she only rarely uses alcohol, that was a one-time event. She denies any known heart issues but was found to have a right bundle branch block on past EKG the on that ER visit 01/28/2021. Her blood pressure has been elevated here but she notes it is always normal when she checks it with her primary care doctor or where. She feels she eats very healthy but is not been able to lose weight. Her 24-hour food diary starting the program did not show an protein, breakfast was a piece of Demi Uriel wheat bread with peanut butter, midmorning snack granola bar, lunch have a hamburger marco with vegetables, and her egg omelette, toast and a few hashbrowns, evening snack skinny pop popcorn and an apple. She notes she will often have breakfast but then wait till 3:00 in the afternoon to eat lunch and eat more for food later in the day. 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 3. Hypercholesterolemia-should be improving with healthier eating. Continue to treat with decreasing the bad fats, added fats, increase activity and exercise and achieve long-term weight loss. LDL significantly elevated at 166.8 measured on 09/29/2021. Monitor. Consider statin. 4. Hypothyroidism-on replacement. Treated by her PCP. 5. Right bundle branch block by old EKG in 2020-denies any cardiac history or symptoms. 6. Increased blood pressure rule out hypertension-treat with a low-salt diet, decreased processed and restaurant foods, healthy lifestyle changes and achieve long-term weight loss. Monitor outside the office. 7. Constipation-it seems to be related to her Contrave. She notes it is relieved with nighttime magnesium. Monitor with adding semaglutide. 8. 1 spell of alcohol intoxication seen here at our hospital 01/28/2021. She denies any significant alcohol use now just rare. Follow up with me in 6 weeks. New labs needed: She will be due for yearly blood work again 10/2023 if not done by her PCP. She needs close follow-up of her elevated LDL cholesterol. She is otherwise metabolically healthy. She had an A1c 10/2022 of 5.2 along with a normal fasting blood sugar of 95. Author Zak Gordon [facility] Authored November 20, 2023 3:48 pm Highest weight: 174lbs. She is down 5.1 lbs. Start weight: 168.6 lbs.She is up 0.3 lbs. today with a weight of 168.9 lbs. last visit 08/28/2023. Starting Date: 08-28-2023. She was on full dose Contrave before starting the program. She was a nonresponder after 3 months of treatment being just down about 5 pounds since she started Contrave. 1. Abnormal weight gain. She has a strong family history of obesity and good response to GLP-1 agonists. 2. Obesity- Improved now with compounded semaglutide. With Contrave was non-responder. 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 Her waist circumference was 39 inches with starting the program and her percent body fat was 42.2% by bioimpedance. Her BMI was 28 with starting the program. She notes that her PCP tried her first on Adipex without success. She does feel that she eats healthy but she does not eat enough lean protein, vegetables or whole fruits and ends up getting more carbohydrates and some processed snacks. She will treat with long-term lifestyle changes of improved nutrition, increased exercise and activity, stress reduction, adequate sleep and behavioral modification versus short-term dieting. Behavioral: The patient's previous eating habits prior to starting our program good. Before starting the program the biggest reasons for weight struggles include health issues. Exercise before starting the program: yes 1 x week. She likes to go out and walk. She is from [place]. She did have a bout of alcohol intoxication back in 2020 but she notes she only rarely uses alcohol, that was a one-time event. She denies any known heart issues but was found to have a right bundle branch block on past EKG the on that ER visit 01/28/2021. Her blood pressure has been elevated here but she notes it is always normal when she checks it with her primary care doctor or where. She felt she ate very healthy but has not been able to lose weight. 3. Hypercholesterolemia-should be improving with healthier eating. Continue to treat with decreasing the bad fats, added fats, increase activity and exercise and achieve long-term weight loss. LDL significantly elevated at 166.8 measured on 09/29/2021. Monitor. Consider statin. 4. Hypothyroidism-on replacement. Treated by her PCP. 5. Right bundle branch block by old EKG in 2020-denies any cardiac history or symptoms. 6. Increased blood pressure rule out hypertension-treat with a low-salt diet, decreased processed and restaurant foods, healthy lifestyle changes and achieve long-term weight loss. Monitor outside the office. 7. Constipation- it is relieved with nighttime magnesium. Monitor with adding semaglutide. 8. 1 spell of alcohol intoxication seen here at our hospital 01/28/2021. She denies any significant alcohol use now just rare. Follow up with me in 6 weeks. New labs needed: She will be due for yearly blood work again with her PCP. She needs close follow-up of her elevated LDL cholesterol around 6 months after following up with our program. She is metabolically healthy. She had an A1c 10/2022 of 5.2 along with a normal fasting blood sugar of 95. [facility] Work Phone: 1([phone]) 564-716303-21-2024 Evaluation note* Author Zak Gordon [facility] Authored August 28, 2023 1:5 3pm Assessment: Neck size 13.5 Highest weight: 174lbs Start weight: 168.6 lbs. Starting Date: 08-28-2023. She was on full dose Contrave before starting the program. She was a nonresponder to weight loss just down about 5 pounds since she started Contrave. She is weaning off. 1. Abnormal weight gain 2. Obesity-minimal improvement with full dose Contrave. She will be weaning slowly down and off the Contrave. She will cut the dose to 1 tablet twice daily. She felt better on the medication but does not have a history of depression, PHQ-9 was 5 with starting the program. She still has a month of the medication at home, so with having the dose that will last her 2 months. 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 Her weight circumference was 39 inches with starting the program and her percent body fat was 42.2% by bioimpedance. Her BMI was 28 with starting the program. We discussed that she does not have a definite weight related comorbidity and at this point does not qualify for weight loss medication. She notes that her PCP tried her first on Adipex without success. We discussed trying compounded semaglutide if she struggles in the future despite nonpharmacologic therapy/healthy lifestyle change. She does feel that she eats healthy but she does not eat enough lean protein, vegetables or whole fruits and ends up getting more carbohydrates and some processed snacks. The patient will treat with long-term lifestyle changes of improved nutrition, increased exercise and activity, stress reduction, adequate sleep and behavioral modification versus short-term dieting. Behavioral: The patient's previous eating habits prior to starting our program good. Before starting the program the biggest reasons for weight struggles include health issues. Exercise before starting the program: yes 1 x week. She likes to go out and walk. She is from [place] so it will be hard for her to start exercise with her process trainer but we could give her a home exercise program which would include strength training. She has been wanting to lose weight for the last couple years. She notes that she has had some chronic tiredness and it seems to be a little helpful for that. She was Adipex helped her some of her fatigue. She does not have a lot of weight related comorbidities. Her hypercholesterolemia may be more genetic as her triglycerides and HDL are normal. Her weight is dropped from 174 pounds to 168.6 since being on the Contrave which is only a 5.4 pound loss which is not a definite responder. She is on her thyroid replacement. She did have a bout of alcohol intoxication back in 2020 but she notes she only rarely uses alcohol, that was a one-time event. She denies any known heart issues but was found to have a right bundle branch block on past EKG the on that ER visit 01/28/2021. Her blood pressure has been elevated here but she notes it is always normal when she checks it with her primary care doctor or where. She feels she eats very healthy but is not been able to lose weight. Her 24-hour food diary starting the program did not show an protein, breakfast was a piece of Demi Uriel wheat bread with peanut butter, midmorning snack granola bar, lunch have a hamburger marco with vegetables, and her egg omelette, toast and a few hashbrowns, evening snack skinny pop popcorn and an apple. She notes she will often have breakfast but then wait till 3:00 in the afternoon to eat lunch and eat more for food later in the day. 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 3. Hypercholesterolemia-treat with decreasing the bad fats, added fats, increase activity and exercise and achieve long-term weight loss. LDL significantly elevated at 166.8 measured on 09/29/2021. Monitor. Consider statin. 4. Hypothyroidism-on replacement. Treated by her PCP. 5. Right bundle branch block by old EKG in 2020-denies any cardiac history or symptoms. 6. Increased blood pressure rule out hypertension-treat with a low-salt diet, decreased processed and restaurant foods, healthy lifestyle changes and achieve long-term weight loss. Monitor outside the office. 7. Constipation-it seems to be related to her Contrave. She notes it is relieved with nighttime magnesium. 8. 1 spell of alcohol intoxication seen here at our hospital 01/28/2021. She denies any significant alcohol use now just rare. Follow up with me in 6 weeks. New labs needed: She will be due for yearly blood work again 10/2023 if not done by her PCP. She needs close follow-up of her elevated LDL cholesterol. She is otherwise metabolically healthy. She had an A1c 10/2022 of 5.2 along with a normal fasting blood sugar of 95. The patient was instructed to consider logging all foods and caloric beverages. I highly recommended minimizing or stopping caloric beverages including alcohol. The importance of preplanning, shopping at the edge of the store, decreasing unhealthy food cues and environmental control stressed. I recommend packing snacks and meals when out of the home. Remove trigger/unhealthy foods if possible from the home. No macronutrient is completely restricted. We discussed the addictive nature and unhealthy biological changes that occur with ultra processed food. We discussed the brain and peripheral biological changes with obesity that make it a chronic disease. Importance of cooking most food items from scratch discussed. No skipping any meals. Avoid added sugar, refined starches, and added fats. I highly recommended preference for whole foods/real foods. Foods from the farm, not from the factory. The plate method discussed and handout given. Lean unprocessed protein with each meal and each snack to help control appetite, decrease cravings and lessen muscle loss with weight loss advised. Consider use of a protein shake or protein bar instead of missing a meal. The patient will try to get at least 5 or more servings of low carbohydrate veggies/salads daily. Recommend regular follow-up with our registered dietitian. Benefits of regular exercise including cardio and resistance training discussed and recommended as appropriate for the patient. Slowly increase activity. Our exercise program was recommended with our process trainer/obesity exercise group. Handout given. Our free weekly group support/food triggers program was highly recommended to help with long-term behavioral change and support. Handout given. The patient must start healthy behavioral changes. The patient was instructed on good sleep hygiene and on the importance of adequate sleep. Circadian rhythm and the importance of mealtime discussed. I recommended stress reduction. Medication addition and subtraction options discussed. Risks and benefits of prescribed meds discussed. Initial [id number] interview/evaluation. The patient was counseled in detail on the options for weight loss in an individual setting. 65 minutes was spent caring for the patient, counseling/educating patient on the options for the treatment of obesity and related healthcare issues. The program's treatment goals were reviewed with the patient. Each aspect of the program was discussed with the patient. [facility] Work Phone: 1([phone]) 713-383903-21-2024 Evaluation note* Author Zak Gordon [facility] Authored August 28, 2023 1:5 3pm Assessment: Neck size 13.5 Highest weight: 174lbs Start weight: 168.6 lbs. Starting Date: 08-28-2023. She was on full dose Contrave before starting the program. She was a nonresponder to weight loss just down about 5 pounds since she started Contrave. She is weaning off. 1. Abnormal weight gain 2. Obesity-minimal improvement with full dose Contrave. She will be weaning slowly down and off the Contrave. She will cut the dose to 1 tablet twice daily. She felt better on the medication but does not have a history of depression, PHQ-9 was 5 with starting the program. She still has a month of the medication at home, so with having the dose that will last her 2 months. 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 Her weight circumference was 39 inches with starting the program and her percent body fat was 42.2% by bioimpedance. Her BMI was 28 with starting the program. We discussed that she does not have a definite weight related comorbidity and at this point does not qualify for weight loss medication. She notes that her PCP tried her first on Adipex without success. We discussed trying compounded semaglutide if she struggles in the future despite nonpharmacologic therapy/healthy lifestyle change. She does feel that she eats healthy but she does not eat enough lean protein, vegetables or whole fruits and ends up getting more carbohydrates and some processed snacks. The patient will treat with long-term lifestyle changes of improved nutrition, increased exercise and activity, stress reduction, adequate sleep and behavioral modification versus short-term dieting. Behavioral: The patient's previous eating habits prior to starting our program good. Before starting the program the biggest reasons for weight struggles include health issues. Exercise before starting the program: yes 1 x week. She likes to go out and walk. She is from [place] so it will be hard for her to start exercise with her process trainer but we could give her a home exercise program which would include strength training. She has been wanting to lose weight for the last couple years. She notes that she has had some chronic tiredness and it seems to be a little helpful for that. She was Adipex helped her some of her fatigue. She does not have a lot of weight related comorbidities. Her hypercholesterolemia may be more genetic as her triglycerides and HDL are normal. Her weight is dropped from 174 pounds to 168.6 since being on the Contrave which is only a 5.4 pound loss which is not a definite responder. She is on her thyroid replacement. She did have a bout of alcohol intoxication back in 2020 but she notes she only rarely uses alcohol, that was a one-time event. She denies any known heart issues but was found to have a right bundle branch block on past EKG the on that ER visit 01/28/2021. Her blood pressure has been elevated here but she notes it is always normal when she checks it with her primary care doctor or where. She feels she eats very healthy but is not been able to lose weight. Her 24-hour food diary starting the program did not show an protein, breakfast was a piece of Demi Uriel wheat bread with peanut butter, midmorning snack granola bar, lunch have a hamburger marco with vegetables, and her egg omelette, toast and a few hashbrowns, evening snack skinny pop popcorn and an apple. She notes she will often have breakfast but then wait till 3:00 in the afternoon to eat lunch and eat more for food later in the day. 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 3. Hypercholesterolemia-treat with decreasing the bad fats, added fats, increase activity and exercise and achieve long-term weight loss. LDL significantly elevated at 166.8 measured on 09/29/2021. Monitor. Consider statin. 4. Hypothyroidism-on replacement. Treated by her PCP. 5. Right bundle branch block by old EKG in 2020-denies any cardiac history or symptoms. 6. Increased blood pressure rule out hypertension-treat with a low-salt diet, decreased processed and restaurant foods, healthy lifestyle changes and achieve long-term weight loss. Monitor outside the office. 7. Constipation-it seems to be related to her Contrave. She notes it is relieved with nighttime magnesium. 8. 1 spell of alcohol intoxication seen here at our hospital 01/28/2021. She denies any significant alcohol use now just rare. Follow up with me in 6 weeks. New labs needed: She will be due for yearly blood work again 10/2023 if not done by her PCP. She needs close follow-up of her elevated LDL cholesterol. She is otherwise metabolically healthy. She had an A1c 10/2022 of 5.2 along with a normal fasting blood sugar of 95. The patient was instructed to consider logging all foods and caloric beverages. I highly recommended minimizing or stopping caloric beverages including alcohol. The importance of preplanning, shopping at the edge of the store, decreasing unhealthy food cues and environmental control stressed. I recommend packing snacks and meals when out of the home. Remove trigger/unhealthy foods if possible from the home. No macronutrient is completely restricted. We discussed the addictive nature and unhealthy biological changes that occur with ultra processed food. We discussed the brain and peripheral biological changes with obesity that make it a chronic disease. Importance of cooking most food items from scratch discussed. No skipping any meals. Avoid added sugar, refined starches, and added fats. I highly recommended preference for whole foods/real foods. Foods from the farm, not from the factory. The plate method discussed and handout given. Lean unprocessed protein with each meal and each snack to help control appetite, decrease cravings and lessen muscle loss with weight loss advised. Consider use of a protein shake or protein bar instead of missing a meal. The patient will try to get at least 5 or more servings of low carbohydrate veggies/salads daily. Recommend regular follow-up with our registered dietitian. Benefits of regular exercise including cardio and resistance training discussed and recommended as appropriate for the patient. Slowly increase activity. Our exercise program was recommended with our process trainer/obesity exercise group. Handout given. Our free weekly group support/food triggers program was highly recommended to help with long-term behavioral change and support. Handout given. The patient must start healthy behavioral changes. The patient was instructed on good sleep hygiene and on the importance of adequate sleep. Circadian rhythm and the importance of mealtime discussed. I recommended stress reduction. Medication addition and subtraction options discussed. Risks and benefits of prescribed meds discussed. Initial [id number] interview/evaluation. The patient was counseled in detail on the options for weight loss in an individual setting. 65 minutes was spent caring for the patient, counseling/educating patient on the options for the treatment of obesity and related healthcare issues. The program's treatment goals were reviewed with the patient. Each aspect of the program was discussed with the patient. Author Zak Gordon [facility] Authored October 09, 2023 11:48a m Highest weight: 174lbs. She is down 5.1 lbs. Start weight: 168.6 lbs.She is up 0.3 lbs. today with a weight of 168.9 lbs. last visit 08/28/2023. Starting Date: 08-28-2023. She was on full dose Contrave before starting the program. She was a nonresponder after 3 months of treatment being just down about 5 pounds since she started Contrave. 1. Abnormal weight gain. She has a strong family history of obesity and good response to GLP-1 agonists. 2. Obesity-minimal improvement with full dose Contrave x 3 months/nonresponder. She would like to start compounded semaglutide if no significant side effects or problems. She felt somewhat better on the medication but does not have a history of depression, PHQ-9 was 5 with starting the program. We could consider using Wellbutrin in the future. Her mood seems very good at this time. 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 Her weight circumference was 39 inches with starting the program and her percent body fat was 42.2% by bioimpedance. Her BMI was 28 with starting the program. We discussed that she does not have a definite weight related comorbidity and at this point does not qualify for weight loss medication. She notes that her PCP tried her first on Adipex without success. We discussed trying compounded semaglutide if she struggles in the future despite nonpharmacologic therapy/healthy lifestyle change. She does feel that she eats healthy but she does not eat enough lean protein, vegetables or whole fruits and ends up getting more carbohydrates and some processed snacks. The patient will treat with long-term lifestyle changes of improved nutrition, increased exercise and activity, stress reduction, adequate sleep and behavioral modification versus short-term dieting. Behavioral: The patient's previous eating habits prior to starting our program good. Before starting the program the biggest reasons for weight struggles include health issues. Exercise before starting the program: yes 1 x week. She likes to go out and walk. She is from [place] so it will be hard for her to start exercise with her process trainer but we could give her a home exercise program which would include strength training. She has been wanting to lose weight for the last couple years. She notes that she has had some chronic tiredness and it seems to be a little helpful for that. She was Adipex helped her some of her fatigue. She does not have a lot of weight related comorbidities. Her hypercholesterolemia may be more genetic as her triglycerides and HDL are normal. Her weight is dropped from 174 pounds to 168.6 since being on the Contrave which is only a 5.4 pound loss which is not a definite responder. She is on her thyroid replacement. She did have a bout of alcohol intoxication back in 2020 but she notes she only rarely uses alcohol, that was a one-time event. She denies any known heart issues but was found to have a right bundle branch block on past EKG the on that ER visit 01/28/2021. Her blood pressure has been elevated here but she notes it is always normal when she checks it with her primary care doctor or where. She feels she eats very healthy but is not been able to lose weight. Her 24-hour food diary starting the program did not show an protein, breakfast was a piece of Demi Uriel wheat bread with peanut butter, midmorning snack granola bar, lunch have a hamburger marco with vegetables, and her egg omelette, toast and a few hashbrowns, evening snack skinny pop popcorn and an apple. She notes she will often have breakfast but then wait till 3:00 in the afternoon to eat lunch and eat more for food later in the day. 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 3. Hypercholesterolemia-should be improving with healthier eating. Continue to treat with decreasing the bad fats, added fats, increase activity and exercise and achieve long-term weight loss. LDL significantly elevated at 166.8 measured on 09/29/2021. Monitor. Consider statin. 4. Hypothyroidism-on replacement. Treated by her PCP. 5. Right bundle branch block by old EKG in 2020-denies any cardiac history or symptoms. 6. Increased blood pressure rule out hypertension-treat with a low-salt diet, decreased processed and restaurant foods, healthy lifestyle changes and achieve long-term weight loss. Monitor outside the office. 7. Constipation-it seems to be related to her Contrave. She notes it is relieved with nighttime magnesium. Monitor with adding semaglutide. 8. 1 spell of alcohol intoxication seen here at our hospital 01/28/2021. She denies any significant alcohol use now just rare. Follow up with me in 6 weeks. New labs needed: She will be due for yearly blood work again 10/2023 if not done by her PCP. She needs close follow-up of her elevated LDL cholesterol. She is otherwise metabolically healthy. She had an A1c 10/2022 of 5.2 along with a normal fasting blood sugar of 95. Author Zak Gordon [facility] Authored November 20, 2023 2:52 pm Highest weight: 174lbs. She is down 5.1 lbs. Start weight: 168.6 lbs.She is up 0.3 lbs. today with a weight of 168.9 lbs. last visit 08/28/2023. Starting Date: 08-28-2023. She was on full dose Contrave before starting the program. She was a nonresponder after 3 months of treatment being just down about 5 pounds since she started Contrave. 1. Abnormal weight gain. She has a strong family history of obesity and good response to GLP-1 agonists. 2. Obesity- compounded semaglutide if no significant side effects or problems. Her weight is dropped from 174 pounds to 168.6 since being on the Contrave which is only a 5.4 pound loss which is not a definite responder. 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 Her waist circumference was 39 inches with starting the program and her percent body fat was 42.2% by bioimpedance. Her BMI was 28 with starting the program. She notes that her PCP tried her first on Adipex without success. She does feel that she eats healthy but she does not eat enough lean protein, vegetables or whole fruits and ends up getting more carbohydrates and some processed snacks. She will treat with long- term lifestyle changes of improved nutrition, increased exercise and activity, stress reduction, adequate sleep and behavioral modification versus short-term dieting. Behavioral: The patient's previous eating habits prior to starting our program good. Before starting the program the biggest reasons for weight struggles include health issues. Exercise before starting the program: yes 1 x week. She likes to go out and walk. She is from [place]. She did have a bout of alcohol intoxication back in 2020 but she notes she only rarely uses alcohol, that was a one-time event. She denies any known heart issues but was found to have a right bundle branch block on past EKG the on that ER visit 01/28/2021. Her blood pressure has been elevated here but she notes it is always normal when she checks it with her primary care doctor or where. She felt she ate very healthy but has not been able to lose weight. 3. Hypercholesterolemia-should be improving with healthier eating. Continue to treat with decreasing the bad fats, added fats, increase activity and exercise and achieve long-term weight loss. LDL significantly elevated at 166.8 measured on 09/29/2021. Monitor. Consider statin. 4. Hypothyroidism-on replacement. Treated by her PCP. 5. Right bundle branch block by old EKG in 2020-denies any cardiac history or symptoms. 6. Increased blood pressure rule out hypertension-treat with a low-salt diet, decreased processed and restaurant foods, healthy lifestyle changes and achieve long-term weight loss. Monitor outside the office. 7. Constipation- it is relieved with nighttime magnesium. Monitor with adding semaglutide. 8. 1 spell of alcohol intoxication seen here at our hospital 01/28/2021. She denies any significant alcohol use now just rare. Follow up with me in 6 weeks. New labs needed: She will be due for yearly blood work again 10/2023 if not done by her PCP. She needs close follow-up of her elevated LDL cholesterol. She is otherwise metabolically healthy. She had an A1c 10/2022 of 5.2 along with a normal fasting blood sugar of 95. [facility] Work Phone: [phone]) 210-657503-20-2024 Evaluation note* Author Juhi Singh [facility] Authored August 27, 2023 2:4 4pm Assessment: Highest weight: [ ] lbs Start weight: [ ] lbs. Starting Date: [ ]. 1. Abnormal weight gain 2. Obesity-the patient will treat with long-term lifestyle changes of improved nutrition, increased exercise and activity, stress reduction, adequate sleep and behavioral modification versus short-term dieting. [ ] 3. [ ] 4. [ ] 5. [ ] 6. [ ] 7. [ ] 8. [ ] 9. [ ] 10. [ ] 11. [ ] Follow up with me in 6 weeks. New labs needed: [TSH, cholesterol profile, and CMP] The patient was instructed to consider logging all foods and caloric beverages. I highly recommended minimizing or stopping caloric beverages including alcohol. The importance of preplanning, shopping at the edge of the store, decreasing unhealthy food cues and environmental control stressed. I recommend packing snacks and meals when out of the home. Remove trigger/unhealthy foods if possible from the home. No macronutrient is completely restricted. We discussed the addictive nature and unhealthy biological changes that occur with ultra processed food. We discussed the brain and peripheral biological changes with obesity that make it a chronic disease. Importance of cooking most food items from scratch discussed. No skipping any meals. Avoid added sugar, refined starches, and added fats. I highly recommended preference for whole foods/real foods. Foods from the farm, not from the factory. The plate method discussed and handout given. Lean unprocessed protein with each meal and each snack to help control appetite, decrease cravings and lessen muscle loss with weight loss advised. Consider use of a protein shake or protein bar instead of missing a meal. The patient will try to get at least 5 or more servings of low carbohydrate veggies/salads daily. Recommend regular follow-up with our registered dietitian. Benefits of regular exercise including cardio and resistance training discussed and recommended as appropriate for the patient. Slowly increase activity. Our exercise program was recommended with our process trainer/obesity exercise group. Handout given. Our free weekly group support/food triggers program was highly recommended to help with long-term behavioral change and support. Handout given. The patient must start healthy behavioral changes. The patient was instructed on good sleep hygiene and on the importance of adequate sleep. Circadian rhythm and the importance of mealtime discussed. I recommended stress reduction. Medication addition and subtraction options discussed. Risks and benefits of prescribed meds discussed. Initial [id number] interview/evaluation. The patient was counseled in detail on the options for weight loss in an individual setting. [ ] minutes was spent caring for the patient, counseling/educating patient on the options for the treatment of obesity and related healthcare issues. The program's treatment goals were reviewed with the patient. Each aspect of the program was discussed with the patient. [facility] Work Phone: [phone]) 238-914502-14-2024 History of Present illness Narrative* Beatriz Lance MD - 07/23/2023 3:20 PM EST Subjective Patient ID: Renee Hawk is a 68 y.o. female who presents for Ear Problem (1 wk follow up). F/U after using vinegar to soften left crust Review of Systems All other systems reviewed and are negative. Family History Problem Relation Name Age of Onset Cancer Mother Diabetes Father Heart disease Father No Known Problems Daughter Melanoma Neg Hx Active Ambulatory Problems Diagnosis Date Noted Benign paroxysmal positional vertigo 04/10/2023 Eustachian tube disorder 04/10/2023 Hearing loss in left ear 04/10/2023 Osteoarthritis of knee 04/10/2023 Sensorineural hearing loss (SNHL) of both ears 04/10/2023 Hypothyroid ([facility]) 04/10/2023 Vitamin D deficiency 04/10/2023 Hyperlipidemia ([facility]) 04/10/2023 Resolved Ambulatory Problems Diagnosis Date Noted No Resolved Ambulatory Problems Past Medical History: Diagnosis Date COVID-19 06/2021 Eustachian tube disorder, left H/O being hospitalized HLD (hyperlipidemia) ([facility]) Hypothyroidism ([facility]) Vertigo, benign paroxysmal, unspecified laterality Past Surgical History: Procedure Laterality Date BREAST BIOPSY TYMPANOSTOMY TUBE PLACEMENT Left 03/07/2022 T-tube, Sana Allergies Allergen Reactions Azithromycin Other Reaction(s): Unknown Penicillin G Sodium Rash Current Outpatient Medications on File Prior to Visit Medication Sig Dispense Refill ergocalciferol (Vitamin D-2) 1.25 MG (47976 UT) capsule Take 50,000 Units by mouth 1 (one) time perweek. fluticasone (Flonase) 50 MCG/ACT nasal spray Administer 2 sprays into each nostril every 12 (twelve) hours. levothyroxine (Synthroid, Levoxyl) 75 MCG tablet Take 75 mcg by mouth 1 (one) time each day at the same time. meloxicam (Mobic) 15 MG tablet Take 15 mg by mouth 1 (one) time each day at the same time. No current facility-administered medications on file prior to visit. Objective Last Recorded Vitals Vitals: 07/23/23 1511 BP: 137/87 ENT Physical Exam Constitutional Appearance: patient appears well-developed, well-nourished and well-groomed, Communication/Voice: communication appropriate for developmental age; vocal quality normal; Ear Ear comments: Left medial EAC crust debrided with picks and suction. TIP&P, dry Assessment/Plan Diagnoses and all orders for this visit: Chronic myringitis of left ear Crust debrided and tube looks good. Floxin for residual inflamation documented in this encounterCameron [facility] [id number] History of Present illness Narrative* Beatriz Lance MD - 07/15/2023 3:20 PM EST Subjective Patient ID: Renee Hawk is a 68 y.o. female who presents for Ear Problem Review of Systems All other systems reviewed and are negative. Family History Problem Relation Name Age of Onset Cancer Mother Diabetes Father Heart disease Father No Known Problems Daughter Melanoma Neg Hx Active Ambulatory Problems Diagnosis Date Noted Benign paroxysmal positional vertigo 04/10/2023 Eustachian tube disorder 04/10/2023 Hearing loss in left ear 04/10/2023 Osteoarthritis of knee 04/10/2023 Sensorineural hearing loss (SNHL) of both ears 04/10/2023 Hypothyroid ([facility]) 04/10/2023 Vitamin D deficiency 04/10/2023 Hyperlipidemia (CMS/HCC) 04/10/2023 Resolved Ambulatory Problems Diagnosis Date Noted No Resolved Ambulatory Problems Past Medical History: Diagnosis Date COVID-19 06/2021 Eustachian tube disorder, left H/O being hospitalized HLD (hyperlipidemia) (CMS/HCC) Hypothyroidism (CMS/[facility]) Vertigo, benign paroxysmal, unspecified laterality Past Surgical History: Procedure Laterality Date BREAST BIOPSY TYMPANOSTOMY TUBE PLACEMENT Left 03/07/2022 T-tube, Sana Allergies Allergen Reactions Azithromycin Other Reaction(s): Unknown Penicillin G Sodium Rash Current Outpatient Medications on File Prior to Visit Medication Sig Dispense Refill ergocalciferol (Vitamin D-2) 1.25 MG (45398 UT) capsule Take 50,000 Units by mouth 1 (one) time perweek. levothyroxine (Synthroid, Levoxyl) 75 MCG tablet Take 75 mcg by mouth 1 (one) time each day at the same time. meloxicam (Mobic) 15 MG tablet Take 15 mg by mouth 1 (one) time each day at the same time. fluticasone (Flonase) 50 MCG/ACT nasal spray Administer 2 sprays into each nostril every 12 (twelve) hours. No current facility-administered medications on file prior to visit. Objective Last Recorded Vitals Vitals: 07/15/23 1520 BP: 115/80 ENT Physical Exam Ear Ear comments: Dried blood filling medial RT EAC Assessment/Plan Diagnoses and all orders for this visit: Hearing loss of left ear, unspecified hearing loss type White vinegar drops to soften crust and f/u to debride in one week documented in this encounterCameron Regional Medical [id number] Evaluation note* Encounter Date Diagnosis Assessment Notes Treatment Notes Treatment Clinical Notes Jul, Abnormal tympanic membrane of left ear (ICD-10 - H73.92) Pt will contact Dr. Lance. Tube is still present and unlikely to fall out with the amount of scabbing that is surrounding area. Jul, Overweight (ICD-10 - E66.3) Pt had moderate results w adipex last year. Agrees to referral to weight loss clinic and is interested in Contrave. Jul, Body mass index [BMI] 29.0-29.9, adult (ICD-10 - Z68.29) [facility] Other 11-03-2023 Evaluation note* Encounter Date Diagnosis Assessment Notes Treatment Notes Treatment Clinical Notes Apr, Overweight (ICD-10 - E66.3) [facility] Other 09-07-2023 Evaluation note* Encounter Date Diagnosis Assessment Notes Treatment Notes Treatment Clinical Notes Feb, Overweight (ICD-10 - E66.3) Patient has clearly made a good frank effort for several months on her own to lose weight with little success. Pt to start Adipex daily. Medication is a stimulant. May cause you to be jittery or constipated. Take in the morning, may also take stool softener daily as needed. Continue to eat a healthy well balanced diet and continue work-out regimine. Pt aware that this is not a cure for obesity but a tool used to help them during their weight loss plateau. Pt aware that they need to continue to work hard at weight loss or the weight will be regained. Side effects discussed and understood. Pt education printed and discussed. Pt notified of prescribing schedule with 30 day dispensing, no refills, for up to 12 weeks, with a 6 month break in-between treatments. Id SOB, CP, mood changes, tachycardia, HTN, headaches, blurred vision occur, go to ER and Follow-up with me immediately. Feb, Body mass index [BMI] 28.0-28.9, adult (ICD-10 - Z68.28) [facility] Other 08-10-2023 Evaluation note* Encounter Date Diagnosis Assessment Notes Treatment Notes Treatment Clinical Notes Jan, Overweight (BMI 25.0-29.9) (ICD-10 - E66.3) Patient has clearly made a good frank effort for several months on her own to lose weight with little success. Pt to continue Adipex daily for third month. Medication is a stimulant. May cause you to be jittery or constipated. Take in the morning, may also take stool softener daily as needed. Continue to eat a healthy well balanced diet and continue work-up regimine. Pt aware that this is not a cure for obesity but a tool used to help them during their weight loss plateau. Pt aware that they need to continue to work hard at weight loss or the weight will be regained. Side effects discussed and understood. Any onset of SOB, CP, mood changes, tachycardia, HTN, headaches, blurred vision occur, go to ER and Follow-up with our office immediately. [facility] Other 05-25-2023 Evaluation note* Encounter Date Diagnosis Assessment Notes Treatment Notes Treatment Clinical Notes October, Medicare annual wellness visit, subsequent (ICD-10 - Z00.00) Personalized health advice was given to the beneficiary including a written plan for screenings discussed and provided. Advanced care planning reviewed and/or information given as requested. Additional counseling was provided here today in regards to, [ ]. The above visit was performed by [ ], under direct supervision of [ ]. Document reviewed and amended by provider signed below. Personalized health advice was given to the beneficiary including a written plan for screenings discussed and provided. Advanced care planning reviewed and/or information given as requested. Additional counseling was provided here today in regards to, [ ]. The above visit was performed by [ ], under direct supervision of [ ]. Document reviewed and amended by provider signed below. Personalized health advice was given to the beneficiary including a written plan for screenings discussed and provided. Advanced care planning reviewed and/or information given as requested. Additional counseling was provided here today in regards to, [ ]. The above visit was performed by [ ], under direct supervision of [ ]. Document reviewed and amended by provider signed below. October, Acquired hypothyroidism (ICD-10 - E03.9) chronic problem, due for labs October, Fatigue, unspecified type (ICD-10 - R53.83) Will check labs to r/o metabolic causes. Denies symptoms of CANDICE October, Screening breast examination (ICD-10 - Z12.39) October, Overweight (ICD-10 - E66.3) Will start w labs. If normal, will consider Wegovy or other weight loss med. October, Body mass index [BMI ] 29.0-29.9, adult (ICD-10 - Z68.29) [facility] Other 09-29-2022 Evaluation + Plan noteExtracted from: Title:ANES PREOP Author:Aroldo Guerrero DO Date: Plan [place] [employer] (ASA) physical status classification: Class II. Anesthetic Preoperative Plan Anesthesia: General. . Anesthetic plan, risks, benefits, and alternatives discussed with the patient and/or family. Patient verbalized understanding. Anesthesia risks, benefits, alternatives discussed with patient and/or family/guardians. Risks discussed including but not limited to risks of nerve damage, injury, bleeding requiring transfusion, postop pulmonary complications, nausea, vomiting, sore throat, dental/oral injury, increase/decrease in HR or blood pressure, hoarseness, muscle or joint pain, heart complications discussed. Pt aware and desires to proceed. [facility]09-29-2022 Hospital Discharge instructions Patient Education 03/07/2022 11:40:24 Post Op Patient Instructions - FT (CUSTOM) Follow Up Care 01/29/2022 11:53:32 With:Beatriz Lance Address:Unknown When: Unknown Comments:One month [facility]09-12-2022 Note [id number]:[id number] Chief complaint+Reason for visit Narrative* Chief Complaint Amb Documentation Referral Dr. Noris Landis [facility] Work Phone: Chief complaint+Reason for visit Narrative* Chief Complaint Amb Documentation Referral Dr. Noris Landis Reason for Visit Abnormal weight gain Elevated blood-pressure reading, without diagnosis of hypertension Hypercholesteremia Hypothyroid [facility] Work Phone: Chief complaint+Reason for visit Narrative* Chief Complaint Referral Dr. Noris Reardon Reason for Visit Abnormal weight gain Elevated blood-pressure reading, without diagnosis of hypertension Hypercholesteremia Hypothyroid Elevated blood-pressure reading, without diagnosis of hypertension Hypercholesteremia Overweight (BMI 25.0-29.9) [facility] Work Phone: Evaluation + Plan note Future Appointments Appointment Date:03/07/2022 08:00:00 AM Scheduled Provider: Location:[facility] App[facility] [employer] Other Evaluation note* Diagnosis Hearing loss of left ear, unspecified hearing loss type- Primary documented in this encounter [facility]* Diagnosis Chronic myringitis of left ear- Primary documented in this encounter [facility]* Diagnosis Onset Date Resolution Status Admit Date Hypercholesteremia acute December 092024 10:52am Hypothyroid acute January 06 10:52am Medicare annual wellness vis it, initial acute January 06, 2025 10:52am Screening mammogram for lyla [facility] cancer acute January 06, 2025 10:52am [facility] Work Phone: History general Narrative - Reported* Type Description Date Medical History BMI 27.0-27.9,adult Medical History Decreased hearing of left ear Medical History Disorder of left eustachian tube Medical History Acute medial meniscal injury of left knee, initial encounter Medical History Vitamin D deficiency Medical History Hyperlipemia Medical History Acquired hypothyroidism Medical History Bronchitis Medical History Benign paroxysmal positional arturo tigo Medical History Fatigue Surgical History Left ear tube 02/2022 [facility] Other History general N[facility]ative - [facility] [employer] Other History general Narrative - Reported* Type Description Date Medical History BMI 27.0-27.9,adult Medical History Decreased hearing of left ear Medical History Disorder of left eustachian tube Medical History Acute medial menisca l injury of left knee, initial encounter Medical History Vitamin D deficiency Medical History Hyperlipemia Medical History Acquired hypothyroidism Medical History Bronchitis Medical History Benign paroxysmal positional arturo tigo Medical History Fatigue Surgical History Left ear tube 02/2022 Hospitalization History SEE SURGICAL HX [facility] Other Hospital course Narrative No data available for this section [facility] No data available for this section [facility] No data available for this section [facility] HospitalReason for referral (narrative)No reason for referral information availableParkwood [facility] Work Phone: Summary Purpose Family History Relationship Condition Age at Onset Recorded Date/T socorro father Heart disease Unknown Diabetes mellitus Unknown Unknown Not Specified Unknown Malignant neoplasm Unknown sister Diabetes mellitus Unknown Relationship Condition Age at Onset Recorded Date/T socorro father Heart disease Unknown Diabetes mellitus Unknown Unknown mother Unknown Malignant neoplasm Unknown sister Diabetes mellitus Unknown Advance Directives Advance Directive Response Recorded Date/ Time Advance Directives No September 14 10:57am Advance Directive Response Recorded Date/ Time Advance Directives No September 14 9:57am Reason for Referral Reason weight loss guidance . on adipex last year. wants to try contrave. Diagnosis 1 Overweight (E66.3) Referral Organization [facility] Referring Provider First Name Aurora Referring Provider Last Name Monica Referring Provider Specialty Family [facility] Referred Organization [facility] Referred Provider Wayne Trimble Referred Address [address] [place] [address],[address],[place], [place],[address] Referred Provider Specialty Internal Med icine Referral Priority Routine Chief Complaint and Reason for Visit Chief Complaint wellness Reason for Visit Elevated blood-press ure reading, without diagnosis of hypertension Hypercholesteremia Overweight (BMI 25.0-29.9) Elevated blood-pressure reading, without diagnosis of hypertension Hypercholesteremia Overweight (BMI 25.0-29.9) Elevated blood-pressure reading, without diagnosis of hypertension Hypothyroid Medicare annual wellness visit, initial Chief Complaint wellness Reason for Visit Elevated blood-press ure reading, without diagnosis of hypertension Hypercholesteremia Overweight (BMI 25.0-29.9) Elevated blood-pressure reading, without diagnosis of hypertension Hypercholesteremia Overweight (BMI 25.0-29.9) Elevated blood-pressure reading, without diagnosis of hypertension Hypothyroid Medicare annual wellness visit, initial Overweight (BMI 25.0-29.9) Chief Complaint wellness Reason for Visit Elevated blood-press ure reading, without diagnosis of hypertension Hypercholesteremia Overweight (BMI 25.0-29.9) Elevated blood-pressure reading, without diagnosis of hypertension Hypothyroid Medicare annual wellness visit, initial Overweight (BMI 25.0-29.9) Elevated blood-pressure reading, without diagnosis of hypertension Hypercholesteremia Overweight (BMI 25.0-29.9) Reason for Visit Hypercholesteremia Overweight (BMI 25.0-29.9) Reason for Visit Admit Date Hypercholesteremia April 12, 2024 1 0:30am Overweight (BMI 25.0-29.9) April 12, 2024 10:30am Chief Complaint Admit Date LM 07/28/2024 October 01, 2024 10: 59am Reason for Visit Admit Date Hypercholesteremia July 09, 2024 1 1:10am Overweight (BMI 25.0-29.9) July 09, 2024 11:10am Chief Complaint Admit Date Wellness January 06, 2025 10:5 2am Reason for Visit Admit Date Hypercholesteremia January 06, 2025 10:5 2am Hypothyroid January 06, 2025 10:5 2am Medicare annual wellness visit, initial January 06, 2025 10:52am Screening mammogram for breast cancer Ju ly 2024 10:52am Additional Source Comments INFORMATION SOURCE (unrecogn ized section and content) DATE CREATED AUTHOR 08/03/2021 [facility] DATE CREATED AUTHOR AUTHOR'S ORGANIZ ATION 03/18/2022 Bruce Heck [facility] DATE CREATED AUTHOR AUTHOR'S ORGANIZ ATION 05/14/2022 [facility] DATE CREATED AUTHOR AUTHOR'S ORGANIZ ATION 11/15/2022 [facility] DATE CREATED AUTHOR AUTHOR'S ORGANIZ ATION 07/25/2023 [facility] EPIC Care Team (unrecognized sect ion and content) Team Status: Active Member Role Status Dates Aurora Ferguson MD Primary Care Provider Active Team Status: Inactive Member Role Status Dates Aurora Ferguson MD Primary Care Provider Active Start: August 28, 2023 End: August 28, 2023 Zak Gordon MD Attending Provider Active Start: August 28, 2023 End: August 28, 2023 Team Status: Inactive Member Role Status Dates Aurora Ferguson MD Primary Care Provider Active Start: September 11, 2023 End: September 11, 2023 JEANNE Caraballo Attending Provider Active S tart: September 11, 2023 End: September 11, 2023 Team Status: Inactive Member Role Status Dates Aurora Ferguson MD Primary Care Provider Active Start: October 09, 2023 End: October 09, 2023 Zak Gordon MD Attending Provider Active Start: October 09, 2023 End: October 09, 2023 Team Status: Inactive Member Role Status Dates Aurora Ferguson MD Primary Care Provider Active Start: November 20, 2023 End: November 20, 2023 Zak Gordon MD Attending Provider Active Start: November 20, 2023 End: November 20, 2023 Access Analyst Relationship Specialty Start Date End Date Aurora Ferguson MD [address] [place] [address] PCP - General Family Medicine 04/08/23 Access Analyst Relationship Specialty Start Date End Date Aurora Ferguson MD [address] [place] [address] PCP - General Family Medicine 04/08/23 Access Analyst Relationship Specialty Start Date End Date Aurora Ferguson MD [address] [facility] [place] [address] PCP - General Family Medicine 04/08/23 Team Status: Active Member Role Status Dates Aurora Ferguson MD Primary Care Provider Active Start: August 14, 2023 CHAY Uribe Attending Provider Active Start : August 14, 2023 Team Status: Inactive Member Role Status Dates Aurora Ferguson MD Primary Care Provide r, Attending Provider Active Start: December 25, 2023 End: December 25, 2023 Team Status: Inactive Member Role Status Dates Aurora Ferguson MD Primary Care Provider Active Start: December 26, 2023 End: December 26, 2023 Zak Gordon MD Attending Provider Active Start: December 26, 2023 End: December 26, 2023 Team Status: Inactive Member Role Status Dates Aurora Ferguson MD Primary Care Provider Active Start: January 22, 2024 End: January 22, 2024 Zak Gordon MD Attending Provider Active Start: January 22, 2024 End: January 22, 2024 Team Status: Inactive Member Role Status Dates Aurora Ferguson MD Primary Care Provider Active Start: April 12, 2024 End: April 12, 2024 Zak Gordon MD Attending Provider Active Start: April 12, 2024 End: April 12, 2024 Team Status: Inactive Member Role Status Dates Aurora Ferguson MD Primary Care Provider Active Start: July 09, 2024 End: July 09, 2024 Zak Gordon MD Attending Provider Active Start: July 09, 2024 End: July 09, 2024 Team Status: Inactive Member Role Status Dates Aurora Ferguson MD Primary Care Provider Active Start: October 01, 2024 End: October 01, 2024 Zak Gordon MD Attending Provider Active Start: October 01, 2024 End: October 01, 2024 Team Status: Inactive Member Role Status Dates Aurora Ferguson MD Primary Care Provider Active Start: January 06, 2025 End: January 06, 2025 Aurora Ferguson MD Attending Provider Active St art: January 06, 2025 End: January 06, 2025 REASON FOR VISIT (unrecogniz ed section and content) Reason Comments Ear Problem Reason Comments Ear Problem 1 wk follow up Goals (unrecognized section and content) Goals may be documented in a n alternate section FOR RECORDS PERTAINING TO PATIENTS WHO ARE OR HAVE BEEN ENROLLED IN A CHEMICAL DEPENDENCY/SUBSTANCEABUSE PROGRAM, SOME INFORMATION MAY BE OMITTED. This clinical summary was aggregated from multiple sources. Caution should be exercised in using it in the provision of clinical care. This summary normalizes information from multiple sources, and as a consequence, information in this document may materially change the coding, format and clinical context of patient data. In addition, data may be omitted in some cases. CLINICAL DECISIONS SHOULD BE BASED ON THE PRIMARY CLINICAL RECORDS. [facility] iodine [facility]. provides no warranty or guarantee of the accuracy or completeness of information in this document.
[2025-01-07 08:18] LABS: Hematocrit 39.9 % (36.0-48.0); Hemoglobin 13.5 g/dL (12.0-16.0); Immature Granulocytes Abs Auto 0.01 10^3/uL (0.00-0.03); Immature Granulocytes Pct Auto 0.2 % (0.0-0.5); Lymphocytes Absolute Auto 2.2 10^3/uL (1.2-3.8); Mean Corpuscular HGB Conc 33.8 g/dL (29.9-35.2); Mean Corpuscular Hemoglobin 30.6 pg (26.7-34.0); Mean Corpuscular Volume 90.5 fL (81.0-99.0); Platelet Count 256 10^3/uL (150-450); Red Blood Count 4.41 10^6/uL (4.20-5.40); White Blood Count 5.3 10^3/uL (4.0-11.0)
[2025-01-07 08:34] LABS: Alanine Aminotransferase 31 U/L (14-59); Albumin Globulin Ratio 1.0; Albumin Level 3.8 g/dL (3.4-5.0); Alkaline Phosphatase 101 U/L (46-116); Anion Gap 11.2; Aspartate Amino Transferase 21 U/L (15-37); Blood Urea Nitrogen 16.0 mg/dL (7.0-18.0); Calcium 9.4 mg/dL (8.5-10.1); Carbon Dioxide 29.8 mmol/L (21.0-32.0); Chloride 107 mmol/L (98-107); Estimated GFR (African America >60 (>=60 mL/min/1.73m^2); Estimated GFR (Non-African Ame >60 (>=60 mL/min/1.73m^2); Globulin 3.9 g/dL; Glucose 93 mg/dL (74-106); Potassium 4.0 mmol/L (3.5-5.1); Sodium 144 mmol/L (136-145); Thyroid Stimulating Hormone 5.437 uIU/mL (0.358-3.740); Total Protein 7.7 g/dL (6.4-8.2)
== END 2025-01-07 07:55 | disposition home or self-care (01) ==
LOC: MAMMO 07:54
PROVIDERS: PCP Family Medicine; Visit Provider Family Medicine
DX: Z00.00 Encounter for general adult medical examination without abnormal findings (principal); Z12.31 Encounter for screening mammogram for malignant neoplasm of breast; E03.9 Hypothyroidism, unspecified; E78.00 Pure hypercholesterolemia, unspecified; Z80.0 Family history of malignant neoplasm of digestive organs
CPT/HCPCS: 36415; 77063; 77067; 80053; 84439; 84443; 85025

== ENCOUNTER 2025-02-18 08:03 | Outpatient (OUT) | payer MEDICARE, OTHER, SELFPAY ==
--- OUTSIDE RECORDS SUMMARY | 2025-02-14 07:51 | XMS_ITS | Continuity of Care Document ---
Author Organization [facility] Address [address] [place] [address] Phone Care Team Providers Care Agricultural And Forestry Supervisor Name Role Phone Aurora Anderson MD Primary Care Provider Aurora Anderson MD Attending Provider Zak Gordon MD Attending Provider Care Teams Patient Care Team Team Status: Active Member Role Status Dates Aurora Anderson MD Primary Care Provider Active Visit Care Team Team Status: Inactive Member Role Status Dates Aurora Anderson MD Primary Care Provider Active Start: January 06, 2025 End: January 06, 2025 Aurora Anderson MD Attending Provider Active St art: January 06, 2025 End: January 06, 2025 Patient Care Team Team Status: Active Member Role Status Dates Aurora Anderson MD Primary Care Provider Active Start: January 07, 2025 Aurora Anderson MD Attending Provider Active St art: January 07, 2025 Patient Care Team Team Status: Inactive Member Role Status Dates Aurora Anderson MD Primary Care Provider Active Start: February 14, 2025 End: February 14, 2025 Zak Gordon MD Attending Provider Active Start: February 14, 2025 End: February 14, 2025 Chief Complaint and Reason for Visit [...] Verified Status penicillin G Allergy Severe Rash February 11:32am Yes Active azithromycin Allergy Unknown Unknown Reaction February 14, 2025 11:32am Yes Active Penicillins Adverse Reaction Unknown Rash Sept2024 11:32am Yes Active Social History Smoking Status Status Start Date End Date Date of Observa tion Never smoked tobacco (finding) August 28, 2023 11:16am Observation Status Observation Response Date of Response Legal Sex Female (finding) Sex Assigned At Female [birth year] Family History Relationship Condition Age at Onset [...] 75 mcg tablet Discont inued 0 .ROUTE .COMPLEX December 05, 2023 11:02a m [facility] 2023 1:20p m TAKE 1 TABLET BY MOUTH EVERY DAY Levothyroxi ne 75 mcg tablet Discont inued 0 .ROUTE .COMPLEX 2023 1:20pm August 31, 2024 12:55 pm TAKE 1 TABLET BY MOUTH EVERY DAY Levothyroxi ne 75 mcg tablet Discont inued 0 .ROUTE .COMPLEX August 31, 2024 12:55p m November 25, 2024 12:18 pm TAKE 1 TABLET BY MOUTH EVERY DAY Levothyroxi ne 75 mcg tablet Discont inued 0 .ROUTE .COMPLEX November 25, 2024 12:18p m Augus 2024 12:45 pm TAKE 1 TABLET BY MOUTH EVERY DAY Levothyroxi ne 88 mcg tablet Active 0 .ROUTE .COMPLEX 90 January 12, 2025 12:45p m TAKE 1 TABLET BY MOUTH EVERY [...] mL = (Four 0.5 mL pre-filled syringes) Semaglutide /NAM/MeCbl 0.3 mg/0.25 mL Active 0.25 ML SUBCUT every week 1 2024 12:00a m [facility] Pre-filled Syringes using Semaglutide Base 0.3 mg/Niacinamid e 0.25 mg and Methylcobalam in 1 mcg Dispense 1 mL - (Four 0.25 mL pre-filled syringes) Complies with drug therapy Semaglutide /NAM/MeCbl 0.6 mg/0.5 mL Active 0.5 ML SUBCUT every week 2 2024 12:00a m [facility] Pre-filled Syringes using Semaglutide Base 0.6 mg/Niacinamid e 0.5 mg and Methylcobalam in 2 mcg Dispense 2 mL - (Four 0.5 mL pre-filled syringes) Complies with drug therapy Relevant Diagnostic Tests and/or Laboratory Data Laboratory Results Test Collection Date/Time Result Date/Time Result Interpretation Reference Range Result Comment Performing Site Free Thyroxine January 07, 2025 8:03am January 07, 2025 8:03am 1.08 ng/dL 0.76-1.46 Thyroid Stimulating Hormone 3rd Gen January 07, 2025 8:03am January 07, 2025 8:03am 5.437 u[iU]/m L Above high normal 0.358-3.74 0 Anion Gap January 07, 2025 8:03am January 07, 2025 8:03am 11.2 Basophils # (Auto) January 07, 2025 8:03am January 07, 2025 8:03am 0.1 10 3/uL 0.0-0.1 Albumin/Globu hermelinda Ratio January 07, 2025 8:03am January 07, 2025 8:03am 1.0 Basophils (%) (Auto) January 07, 2025 8:03am January 07, 2024 8:03am 2.1 % Above high normal 0.2-2.0 Albumin January 07, 2025 8:03am January 07, 2024 8:03am 3.8 g/dL 3.4-5.0 Eosinophils # (Auto) January 07, 2025 8:03am January 07, 2024 8:03am 0.2 10 3/uL 0.0-0.7 Alkaline Phosphatase January 07, 2025 8:03am January 07, 2025 8:03am 101 U/L 46-116 Eosinophils (%) (Auto) January 07, 2025 8:03am January 07, 2024 8:03am 4.2 % 0.9-7.0 Alanine Aminotransfer ase (ALT/SGPT) January 07, 2025 8:03am January 07, 2025 8:03am 31 U/L 14-59 Hematocrit January 07, 2025 8:03am January 07, 2025 8:03am 39.9 % 36.0-48.0 Aspartate Amino Transf (AST/SGOT) January 07, 2025 8:03am January 07, 2025 8:03am 21 U/L 15-37 Hemoglobin January 07, 2025 8:03am January 07, 2025 8:03am 13.5 g/dL 12.0-16.0 BUN/Creatinin e Ratio January 07, 2025 8:03am January 07, 2024 8:03am 31.4 Immature Granulocyte # (Auto) January 07, 2025 8:03am January 07, 2025 8:03am 0.01 10 3/uL 0.00-0.03 Blood Urea Nitrogen January 07, 2025 8:03am January 07, 2025 8:03am 16.0 mg/dL 7.0-18.0 Immature Granulocyte % (Auto) January 07, 2025 8:03am January 07, 2025 8:03am 0.2 % 0.0-0.5 Calcium Level January 07, 2025 8:03am January 07, 2024 8:03am 9.4 mg/dL 8.5-10.1 Lymphocytes # (Auto) January 07, 2025 8:03am January 07, 2025 8:03am 2.2 10 3/uL 1.2-3.8 Chloride Level January 07, 2025 8:03am January 07, 2025 8:03am 107 mmol/L 98-107 Lymphocytes (%) (Auto) January 07, 2025 8:03am January 07, 2025 8:03am 41.2 % 20.5-60.0 Carbon Dioxide Level January 07, 2025 8:03am January 07, 2025 8:03am 29.8 mmol/L 21.0-32.0 Mean Corpuscular Hemoglobin January 07, 2025 8:03am January 07, 2025 8:03am 30.6 pg 26.7-34.0 Creatinine January 07, 2025 8:03am January 07, 2025 8:03am 0.51 mg/dL Below low normal 0.55-1.02 Mean Corpuscular Hemoglobin Concent January 07, 2025 8:03am January 07, 2025 8:03am 33.8 g/dL 29.9-35.2 Estimated GFR () January 07, 2025 8:03am January 07, 2025 8:03am >60 >=60 mL/min/1.7 3m 2 Mean Corpuscular Volume January 07, 2025 8:03am January 07, 2025 8:03am 90.5 fL 81.0-99.0 Estimated GFR (Non- January 07, 2025 8:03am January 07, 2025 8:03am >60 >=60 mL/min/1.7 3m 2 Monocytes # (Auto) January 07, 2025 8:03am January 07, 2025 8:03am 0.5 10 3/uL 0.3-0.8 Globulin January 07, 2025 8:03am January 07, 2025 8:03am 3.9 g/dL Monocytes (%) (Auto) January 07, 2025 8:03am January 07, 2025 8:03am 8.9 % 1.7-12.0 Glucose Level January 07, 2025 8:03am January 07, 2025 8:03am 93 mg/dL 74-106 Mean Platelet Volume January 07, 2025 8:03am January 07, 2025 8:03am 9.6 fL 9.5-13.5 Potassium Level January 07, 2025 8:03am January 07, 2025 8:03am 4.0 mmol/L 3.5-5.1 Neutrophils # (Auto) January 07, 2025 8:03am January 07, 2025 8:03am 2.3 10 3/uL 1.4-6.5 Sodium Level January 07, 2025 8:03am January 07, 2024 8:03am 144 mmol/L 136-145 Neutrophils (%) (Auto) January 07, 2025 8:03am January 07, 2024 8:03am 43.4 % 43.0-75.0 Total Bilirubin January 07, 2025 8:03am January 07, 2025 8:03am 0.6 mg/dL 0.2-1.0 Platelet Count January 07, 2025 8:03am January 07, 2025 8:03am 256 10 3/uL 150-450 Total Protein January 07, 2025 8:03am January 07, 2025 8:03am 7.7 g/dL 6.4-8.2 Red Blood Count January 07, 2025 8:03am January 07, 2025 8:03am 4.41 10 6/uL 4.20-5.40 Red Cell Distribution Width January 07, 2025 8:03am January 07, 2025 8:03am 12.9 % 11.0-15.0 Corrected White Blood Count January 07, 2025 8:03am January 07, 2025 8:03am 5.3 10 3/uL 4.0-11.0 Vital Signs Vital Reading Result Reference Range [...] Mass Index) 28.0 kg/m2 December 092024 10:58am Height 65 [in_i] February 14, 2025 11:17am Weight 77.70 kg February 14, 2025 11:17am Heart Rate 75 /min 60-100 February 14, 2025 11:17am Respiratory rate 18 /min 12-24 February 142024 11:17am Oxygen saturation by Pulse oximetry 100 % 95-100 February 14, 2025 11:17am BP Systolic 130 mm[Hg] 100-140 February 14, 2025 11:17am BP Diastolic 59 mm[Hg] 60-100 February 14, 2025 11:17am BMI (Body Mass Index) 28.5 kg/m2 Sept2024 11:17am Advance Directives Advance Directive Response Recorded Date/ Time Advance Directives No September 14 10:57am Insurance Providers Guarantor Noris Pandya Address [address] [place] [id number] Contact Info. Home Phone: Payer Policy Id Subscriber's Name Subscriber Id Effectiv e Date Expiration Date [facility] [id number] Noris Pandya [id number] Medicare [id number] Noris Pandya [id number] Encounters Encounter Location(s) Arrival/Admit Date Discharge/Depart Date Provider(s) Departed Physician/Prov ider Office Visit -[facility] January 06, 2025 10:52am January 06, 2025 11:27am Aurora Anderson MD Non-patient / Non-visit -[facility] January 07, 2025 8:03am Aurora Anderson MD Departed Physician/Prov ider Office Visit [facility] February 14, 2025 10:50am February 14, 2025 11:50am Zak Gordon MD Recent Diagnosis Onset Date Admit Date Hypercholesteremia Unknown January 06 10:52am Hypothyroid Unknown January 06, 2025 10:52am Medicare annual wellness visit, initial Unknown January 06, 2025 10:52am Screening mammogram for breast cancer Unknown January 06, 2025 10:52am Assessments Author Zak Gordon [facility] Authored February 14, 2025 11:46am Highest weight: 174 lbs. She is down 2.7 lbs. Start weight: 168.6 lbs. She is up 2.7 lbs. today with a weight of 171.3 lbs she is up 10.8 lbs. from her last visit 10/01/2024. Starting Date: 08-28-2023. She was on full dose Contrave before starting the program. She was a nonresponder after 3 months of treatment being just down about 5 pounds since she started Contrave. On Semaglutide/ [facility] Stopped 1. Abnormal weight gain. She has a strong family history of obesity and good response to GLP-1 agonists. 2. Overweight- improved with an approximately 5% weight loss still despite some weight regain and not exercising much over the winter. She is still on compounded semaglutide 0.6 mg without side effects, but we are going to try her off the medication as she would like to try it on her own. She understands that the only way to get long-term weight loss persistently if medication is required is to stay on the medication. She is working with our director of quality and behavioral modification to keep her weight down. She understands importance of eating healthy Whole Foods/following the plate method and getting consistent exercise including both cardio and strength training. She had hoped to get to 150 pounds but we discussed the need to try to add more muscle and lose some unhealthy fat. She is going to have bioimpedance testing and will follow-up with our director of quality. She is now eating much healthier overall and needs to try to do better with preplanning. She still continues to add more vegetables and is getting adequate lean protein. She feels good. She should continue long-term healthy lifestyle change with following up closely with our director of quality. She is now getting regular exercise with walking 4-5 times a week and she has increased her activity. She should start adding some strength training with our cupola tender helper. She was just exercising 1 day a [...] go out and walk. She is from [place]. She denies any known heart issues but [...] not been able to lose weight. 3. Hypercholesterolemia-with past LDL of 166. Her LDL and cardiac risk should be improving with healthier eating. Her risk of heart disease is going down with decreased abdominal circumference, healthier eating and increased exercise. Continue to treat with decreasing the bad fats, added fats, increase activity and exercise and achieve long-term weight loss. Monitor. Consider statin. She has no known heart disease. 4. Hypothyroidism-on replacement. Treated by her PCP. [...] Constipation- it is relieved with nighttime magnesium. Follow up with me in 8-12 weeks. New labs needed: She will be due for yearly blood work again with her PCP in November or December. She needs close follow-up of her elevated LDL cholesterol around 6-12 months after following up with our program. No cholesterol was done in but at this point she would like just to wait until her summer blood work to have her cholesterol checked. She would probably not add a statin even if her LDL remains high. She is metabolically healthy. She had an A1c 10/2022 of 5.2 along with a normal fasting blood sugar of 95. She notes a very strong family history of type 2 diabetes. Plan of Treatment Author Aurora Anderson [facility] Authored January 06, 2025 4:26 pm stable check labs check labs. Personalized health advice was given to the beneficiary to health education of preventative counseling services or programs aimed at reducing identified risk factors and improving self-management or community-based lifestyle interventions to reduce health risks and promote self-management and wellness, including physical activity and nutrition. pt will schedule. Future Tests Future scheduled test information is unavailable Pending Tests Test Name Ordered Date Scheduled Date Comprehensive Metabolic Panel January 06, 2025 11 :07am MM screening mammo BI w/CAD January 06, 2025 11:0 9am Future Visits Future appointment information is unavailable Referrals to Other Providers Referral information is unavailable Future Procedures Procedure Name Ordered Date Scheduled Date Thyroid Stim Hormone w/Rflx January 06, 2025 11:0 7am Future Medications Future medication information is unavailable Patient Instructions Patient instructions are unavailable
--- OUTSIDE RECORDS SUMMARY | 2025-02-18 08:04 | XMS_ITS | Clinical Summary ---
Author Organization [facility] Address [address] [place] [address] Phone Care Team Providers Care Cement Side Laster Name Role Phone Unavailable Primary Care Provider [...] COVID-19 Vaccine (1 - 2023-2 5 season) 2025 Influenza Vaccine (#1) 2025 RSV High Risk: [...]
--- OUTSIDE RECORDS SUMMARY | 2025-02-18 08:05 | XMS_ITS | Encounter Summary ---
Author Organization [facility] Address [address] [place] [address] Care Team Providers Care Stone Derrickman And Rigger Name Role Phone Aurora Anderson MD Primary Care Provider [phone] Encounter Details Date Type Department Care Team (Late st Contact Info) Description 04/10/2023 Abstract [facility] [address] [facility] [address] [place] [id number] Vesna Bueno, YESSY [address] [facility] [address] [place] [address] Social History Tobacco Use Types Packs/Day Years [...] as of this encounter Plan of Treatment Upcoming Encounters Date Type Department Care Team (Late st Contact Info) Description 03/31/2025 10:35 AM EDT Office Visit [facility] [address] [place] [phone] Pili Hopkins MD [address] [place] [address] documented as of this encounter Visit Diagnoses Not on filedocumented in this encounter Care Teams Stone Derrickman And Rigger Relationship Specialty Start Date End Date Aurora Anderson MD PCP - General Family Medicine 04/08/23 documented as of this encounter
--- OUTSIDE RECORDS SUMMARY | 2025-02-18 08:05 | XMS_ITS | Clinical Summary ---
Author Organization [facility] Address [address] [place] [address] Care Team Providers Care Sign Language Translator Name Role Phone Aurora Anderson MD Primary Care Provider [phone] Allergies Active Allergy Reactions Criticality Noted Date [...] time. Active ergocalciferol (Vitamin D-2) 1.25 MG (28624 UT) capsule Take 50,000 Units by mouth [...] 07/23/2023 3:11 PM EST Plan of Treatment Upcoming Encounters Date Type Department Care Team (Late st Contact Info) Description 03/31/2025 10:35 AM EDT Office Visit [facility] [address] [place] [phone] Pili Hopkins MD [address] [facility] [place] [address] Health Maintenance Due Date Last Done Comments CT Colonography 1954 Colonoscopy 1954 Colorectal Cancer Screening 1954 FIT-DNA 1954 FIT 1954 FOBT 1954 Sigmoidoscopy 1954 Mammogram 1994 Pneumococcal Vaccine: 65+ Years (1 of 1 - PCV) 004 Influenza Vaccine (#1) 2025 Insurance MEDICARE [facility] [place] [phone] Care Teams Sign Language Translator Relationship Specialty Start Date End Date Aurora Anderson MD PCP - General Family Medicine 04/08/23
--- OUTSIDE RECORDS SUMMARY | 2025-02-18 08:06 | XMS_ITS | CCD ---
Author Organization [facility] Care Team Providers Care Siderographer Name Role Phone AURORA FERGUSON Primary Care [...] [place] Primary Care Unavailable FERGUSON, DR AURORA Spani Attending Unavailable WEST, DR KONG Mckee Consulting Unavailable FERGUSON, DR AURORA [place] Consulting Unavailable Aurora Ferguson Aurora Ferguson MD Primary Care Provider [phone] TIMMIS, BEATRIZ Haas Attending Unavailable TIMMIS, BEATRIZ H Attending Unavailable Aurora Ferguson MD Primary Care Provider Aurora Ferguson MD Attending Provider [phone] Zak Gordon MD Attending Provider Allergies Allergy Classification Reported Allergen(s) Allergy Type Date of Onset Reaction(s) Facility (4 sources) Penicillin; Translations: [penicillin] Drug Allergy [facility] (20 sources) Azithromycin Drug Allergy 3 Unknown, Unknown Reaction [facility] Work Phone: (20 sources) Penicillin G Drug Allergy 4 Unknown, [facility] (6 sources) Penicillin G sodium Allergy to substance 3 Rash [facility] (11 sources) Penicillins Propensity to adverse reactions 4 [facility] Medications Current Medications Medication Drug Class(es) Dates Sig (Normalized) Sig (Original) ergocalciferol 1.25 mg oral capsule (6 sources) Provitamin D2 Compound take 1 capsule by mouth every week ergocalciferol (Vitamin D-2) 1.25 MG (89782 UT) capsule Take 50,000 Units by mouth 1 (one) time per week. 0 Active fluticasone propionate 0.05 mg/actuat metered dose nasal spray (6 sources) Corticosteroid fluticasone (Flonase) 50 MCG/ACT nasal spray Administer 2 sprays into each nostril every 12 (twelve) hours. 0 Active levothyroxine sodium 0.088 mg oral tablet (20 sources) l-Thyroxine Start: 01-12-2025 take 1 tablet by mouth once daily Levothyroxine 88 mcg tablet Active 0 .ROUTE .COMPLEX January 12, 2025 12:45pm TAKE 1 TABLET BY MOUTH EVERY DAY Complies with drug therapy Start: 12-05-2023 End: 01-12-2025 take 1 tablet by mouth once daily Levothyroxine 75 mcg tablet Discontinued 0 .ROUTE .COMPLEX November 25, 2024 12:18pm January 12, 2025 12:45pm TAKE 1 TABLET BY MOUTH EVERY DAY Start: 10-09-2023 End: 12-05-2023 take 1 tablet [...] Status: Ordered take 1 tablet by adriel th once daily levothyroxine (Synthroid, Levoxyl) 75 MCG [...] mL = (Four 0.25 mL pre-filled syringes) Semaglutide/NAM/MeCbl 0.3 mg/0.25 mL (1 source) Start: 02-14-2025 Semaglutide/NAM/MeCbl 0.3 mg/0.25 mL Active 0.25 ML SUBCUT every week February 14, 2025 12:00am [facility] Pre-filled Syringes using Semaglutide Base 0.3 mg/Niacinamide 0.25 mg and Methylcobalamin 1 mcg Dispense 1 mL - (Four 0.25 mL pre-filled syringes) Complies with drug therapy Semaglutide/NAM/MeCbl 0.6 mg/0.5 mL (1 source) Start: 02-14-2025 Semaglutide/NAM/MeCbl 0.6 mg/0.5 mL Active 0.5 ML SUBCUT every week February 14, 2025 12:00am [facility] Pre-filled Syringes using Semaglutide Base 0.6 mg/Niacinamide 0.5 mg and Methylcobalamin 2 mcg Dispense 2 mL - (Four 0.5 mL pre-filled syringes) Complies with drug therapy Vitamin D3 1000 intl units oral capsule (2 sources) Start: 03-01-2022 take 1 capsule by mouth once daily Vitamin D3 1000 intl units oral capsule 25 mcg = 1 cap(s), Oral, Daily, Prophylaxis Start Date: 03/01/22 Status: Ordered Zinc (2 sources) Start: 03-01-2022 Zinc 140 mg (as elemental zinc 50 mg) oral tablet 140 [...] Active magnesium oxide 500 mg oral capsule (11 sources) Start: 08-28-2023 End: 11-20-2023 take 1 capsule by mouth once daily Magnesium Oxide 500 mg capsule Discontinued 500 MG PO Daily August 28, 2023 12:00am November 20, 2023 2:45pm Semaglutide Base 0.3 mg/0.25 mL (8 sources) Start: 10-09-2023 End: 10-09-2023 inject 1 [...] pre-filled syringes) Semaglutide Base 0.6 mg/0.5 mL (8 sources) Start: 07-09-2024 End: 01-06-2025 inject 1 mL by subcutaneous injection every week Semaglutide Base 0.6 mg/0.5 mL Discontinued 0.5 ML SUBCUT every week 2 July 09, 2024 12:53pm January 06, 2025 10:59am [facility] Pre-filled Syringes using Semaglutide Base. Dispense 2 mL = (Four 0.5 mL pre-filled syringes) Start: 07-09-2024 inject 1 mL by subcu taneous injection every week Semaglutide Base 0.6 mg/0.5 mL Active 0.5 ML SUBCUT every week 2 July 09, 2024 12:53pm [facility] Pre-filled Syringes using Semaglutide Base. Dispense 2 mL = (Four 0.5 mL pre-filled syringes) Start: 07-09-2024 inject 1 mL by subcu taneous injection every week Semaglutide Base 0.6 mg/0.5 mL Active 0.5 ML SUBCUT every week 2 July 09, 2024 11:53am [facility] Pre-filled Syringes using Semaglutide Base. Dispense 2 mL = (Four 0.5 mL pre-filled syringes) Start: 12-26-2023 End: 07-09-2024 inject 1 mL by subcutaneous injection every week Semaglutide Base 0.6 mg/0.5 mL Discontinued 0.5 ML SUBCUT every week 2 December 26, 2023 12:00am July 09, 2024 12:54pm [facility] Pre-filled Syringes using Semaglutide Base. Dispense 2 mL = (Four 0.5 mL pre-filled syringes) Start: 12-26-2023 End: 07-09-2024 inject 1 mL by subcutaneous injection every week Semaglutide Base 0.6 mg/0.5 mL Discontinued 0.5 ML SUBCUT every week December 25, 2023 11:00pm July 09, 2024 11:54am [facility] Pre-filled Syringes using Semaglutide Base. Dispense 2 mL = (Four 0.5 mL pre-filled syringes) Problems Active Problems Problem Classification Problem Date Documented Date Episodic/Chronic Alcohol-related disorders (11 sources) Alcohol intoxication; Translations: [Alcohol use, unspecified [...] Onset: 04-10-2023 04-10-2023 Chronic Other circulatory disease (11 sources) Elevated blood-pressure reading without diagnosis of [...] Episodic Other nutritional; endocrine; and metabolic disorders (19 sources) Body mass index 25-29 - overweight; [...] Episodic Other nutritional; endocrine; and metabolic disorders (10 sources) Abnormal weight gain; Translations: [Abnormal weight gain] 08-28-2023 Episodic Other nutritional; endocrine; and metabolic disorders (2 sources) Abnormal weight gain; Translations: [Abnormal weight gain] 08-28-2023 Episodic Other screening for suspected conditions (not mental disorders or infectious disease) (6 sources) Encounter for screening mammogram for malignant [...] Translations: [Sprain of left knee] Episodic Syncope (11 sources) Syncope; Translations: [Syncope and collapse] 05-21-2023 [...] Reference Range Facility Basophils Auto (Bld) [#/Vol] Ordered By: Aurora Ferguson on 01-07-2025 Basophils (Bld) [#/Vol] 0.1 10 3/uL 0.0-0.1 [facility] Basophils/100 WBC Auto (Bld) Ordered By: Aurora Ferguson on 01-07-2025 Basophils/100 WBC (Bld) 2.1 % High 0.2-2.0 [facility] Eosinophils/100 WBC Auto (Bl d)Ordered By: Aurora Ferguson on 01-07-2025 Eosinophils/100 WBC (Bld) 4.2 % 0.9-7.0 [facility] Erythrocyte distribution wid th Auto (RBC) [Ratio]Ordered By: Aurora Ferguson on 01-07-2025 Erythrocyte distribution width (RBC) [Ratio] 12.9 % 11.0-15.0 [facility] Globulin Calc (S) [Mass/Vol] Ordered By: Aurora Ferguson on 01-07-2025 Globulin (S) [Mass/Vol] 3.9 g/dL [facility] Glomerular filtration rate ( GFR) estimation in non- AmericanOrdered By: Aurora Ferguson on 01-07-2025 GFR/1.73 sq M.predicted among non-blacks MDRD (S/P/Bld) [Vol rate/Area] mL/min/{1.73_m2} >=60 mL/min/1.73m 2 [facility] Hematocrit Auto (Bld) [Volum e fraction]Ordered By: Aurora Ferguson on 01-07-2025 Hematocrit (Bld) [Volume fraction] 39.9 % 36.0-48.0 [facility] Hemoglobin [Mass/volume] in BloodOrdered By: Aurora Ferguson on 01-07-2025 Hemoglobin (Bld) [Mass/Vol] 13.5 g/dL 12.0-16.0 [facility] Laboratory - Chemistry and C hemistry - challengeOrdered By: Aurora Ferguson on 01-07-2025 Albumin [Mass/Vol] 3.8 g/dL 3.4-5.0 [facility] ALP [Catalytic activity/Vol] 101 U/L 46-116 [facility] ALT [Catalytic activity/Vol] 31 U/L 14-59 [facility] AST [Catalytic activity/Vol] 21 U/L 15-37 [facility] Bilirubin [Mass/Vol] 0.6 mg/dL 0.2-1.0 [facility] Calcium [Mass/Vol] 9.4 mg/dL 8.5-10.1 [facility] Chloride [Moles/Vol] 107 mmol/L 98-107 [facility] CO2 [Moles/Vol] 29.8 mmol/L 21.0-32.0 [facility] Creatinine [Mass/Vol] 0.51 mg/dL Low 0.55-1.02 [facility] Free T4 [Mass/Vol] 1.08 ng/dL 0.76-1.46 [facility] GFR/1.73 sq M.predicted MDRD (S/P/Bld) [Vol rate/Area] mL/min/{1.73_m2} >=60 mL/min/1.73m 2 [facility] Glucose [Mass/Vol] 93 mg/dL 74-106 [facility] Potassium [Moles/Vol] 4.0 mmol/L 3.5-5.1 [facility] Protein [Mass/Vol] 7.7 g/dL 6.4-8.2 [facility] Sodium [Moles/Vol] 144 mmol/L 136-145 [facility] TSH Qn 5.437 m[IU]/L High 0.358-3.740 [facility] Urea nitrogen [Mass/Vol] 16.0 mg/dL 7.0-18.0 [facility] Urea nitrogen/Creatinine [Mass ratio] 31.4 mg/mg [facility] Laboratory - Hematology and Cell countsOrdered By: Aurora Ferguson on 01-07-2025 Immature granulocytes/100 WBC (Bld) 0.2 % 0.0-0.5 [facility] Leukocytes [#/volume] correc eleazar for nucleated erythrocytes in Blood by Automated counOrdered By: Aurora Ferguson on 01-07-2025 WBC corrected for nucl RBC Auto (Bld) [#/Vol] 5.3 10 3/uL 4.0-11.0 [facility] Lymphocytes Auto (Bld) [#/Vo l]Ordered By: Aurora Ferguson on 01-07-2025 Lymphocytes (Bld) [#/Vol] 2.2 10 3/uL 1.2-3.8 [facility] Lymphocytes/100 WBC Auto (Bl d)Ordered By: Aurora Ferguson on 01-07-2025 Lymphocytes/100 WBC (Bld) 41.2 % 20.5-60.0 [facility] MCH Auto (RBC) [Entitic mass ]Ordered By: Aurora Ferguson on 01-07-2025 MCH (RBC) [Entitic mass] 30.6 pg 26.7-34.0 [facility] MCHC Auto (RBC) [Mass/Vol]Or dered By: Aurora Ferguson on 01-07-2025 MCHC (RBC) [Mass/Vol] 33.8 g/dL 29.9-35.2 [facility] MCV Auto (RBC) [Entitic vol] Ordered By: Aurora Ferguson on 01-07-2025 MCV (RBC) [Entitic vol] 90.5 fL 81.0-99.0 [facility] Monocytes Auto (Bld) [#/Vol] Ordered By: Aurora Ferguson on 01-07-2025 Monocytes (Bld) [#/Vol] 0.5 10 3/uL 0.3-0.8 [facility] Monocytes/100 WBC Auto (Bld) Ordered By: Aurora Ferguson on 01-07-2025 Monocytes/100 WBC (Bld) 8.9 % 1.7-12.0 [facility] Neutrophils Auto (Bld) [#/Vo l]Ordered By: Aurora Ferguson on 01-07-2025 Neutrophils (Bld) [#/Vol] 2.3 10 3/uL 1.4-6.5 [facility] Neutrophils/100 WBC Auto (Bl d)Ordered By: Aurora Ferguson on 01-07-2025 Neutrophils/100 WBC (Bld) 43.4 % 43.0-75.0 [facility] No Panel InformationOrdered By: Aurora Ferguson on 01-07-2025 Eosinophils # (Auto) 0.2 10 3/uL 0.0-0.7 [facility] Immature Granulocyte # (Auto) 0.01 10 3/uL 0.00-0.03 [facility] Platelet mean volume Auto (B ld) [Entitic vol]Ordered By: Aurora Ferguson on 01-07-2025 Platelet mean volume (Bld) [Entitic vol] 9.6 fL 9.5-13.5 [facility] Platelets Auto (Bld) [#/Vol] Ordered By: Aurora Ferguson on 01-07-2025 Platelets (Bld) [#/Vol] 256 10 3/uL 150-450 [facility] RBC Auto (Bld) [#/Vol]Ordere d By: Aurora Ferguson on 01-07-2025 RBC (Bld) [#/Vol] 4.41 10 6/uL 4.20-5.40 [facility] Serum or plasma albumin/glob ulin mass ratioOrdered By: Aurora Ferguson on 01-07-2025 Albumin/Globulin [Mass ratio] 1.0 {ratio} [facility] Serum or plasma anion gap de terminationOrdered By: Aurora Ferguson on 01-07-2025 Anion gap [Moles/Vol] 11.2 mmol/L [facility] Basophils Auto (Bld) [#/Vol] on 12-25-2023 Basophils (Bld) [#/Vol] 0.1 10 3/uL 0.0-0.1 [facility] Basophils/100 WBC Auto (Bld) on 12-25-2023 Basophils/100 WBC (Bld) 1.2 % 0.2-2.0 [facility] Eosinophils/100 WBC Auto (Bl d)on 12-25-2023 Eosinophils/100 WBC (Bld) 1.5 % 0.9-7.0 [facility] Erythrocyte distribution wid th Auto (RBC) [Ratio]on 12-25-2023 Erythrocyte distribution width (RBC) [Ratio] 12.8 % 11.0-15.0 [facility] Estimated glomerular filtrat ion rate (GFR) non- Americanon 12-25-2023 GFR/1.73 sq M.predicted among non-blacks MDRD (S/P/Bld) [Vol rate/Area] mL/min/{1.73_m2} >=60 [facility] Globulin Calc (S) [Mass/Vol] on 12-25-2023 Globulin (S) [Mass/Vol] 4.2 g/dL [facility] Hematocrit Auto (Bld) [Volum e fraction]on 12-25-2023 Hematocrit (Bld) [Volume fraction] 38.5 % 36.0-48.0 [facility] Hemoglobin [Mass/volume] in Bloodon 12-25-2023 Hemoglobin (Bld) [Mass/Vol] 13.1 g/dL 12.0-16.0 [facility] Laboratory - Chemistry and C hemistry - challengeon 12-25-2023 Albumin [Mass/Vol] 3.7 g/dL 3.4-5.0 [facility] ALP [Catalytic activity/Vol] 86 U/L 46-116 [facility] ALT [Catalytic activity/Vol] 18 U/L 14-59 [facility] AST [Catalytic activity/Vol] 14 U/L Low 15-37 [facility] Bilirubin [Mass/Vol] 0.4 mg/dL 0.2-1.0 [facility] Calcium [Mass/Vol] 9.4 mg/dL 8.5-10.1 [facility] Chloride [Moles/Vol] 103 mmol/L 98-107 [facility] CO2 [Moles/Vol] 29.1 mmol/L 21.0-32.0 [facility] Creatinine [Mass/Vol] 0.57 mg/dL 0.55-1.02 [facility] Free T4 [Mass/Vol] 1.16 ng/dL 0.76-1.46 [facility] GFR/1.73 sq M.predicted MDRD (S/P/Bld) [Vol rate/Area] mL/min/{1.73_m2} >=60 [facility] Glucose [Mass/Vol] 87 mg/dL 74-106 [facility] Potassium [Moles/Vol] 3.9 mmol/L 3.5-5.1 [facility] Protein [Mass/Vol] 7.9 g/dL 6.4-8.2 [facility] Sodium [Moles/Vol] 139 mmol/L 136-145 [facility] TSH Qn 1.089 m[IU]/L 0.358-3.740 [facility] Urea nitrogen [Mass/Vol] 18.0 mg/dL 7.0-18.0 [facility] Urea nitrogen/Creatinine [Mass ratio] 31.6 mg/mg [facility] Laboratory - Hematology and Cell countson 12-25-2023 Immature granulocytes/100 WBC (Bld) 0.2 % 0.0-0.5 [facility] Leukocytes [#/volume] correc eleazar for nucleated erythrocytes in Blood by Automated counon 12-25-2023 WBC corrected for nucl RBC Auto (Bld) [#/Vol] 6.6 10 3/uL 4.0-11.0 [facility] Lymphocytes Auto (Bld) [#/Vo l]on 12-25-2023 Lymphocytes (Bld) [#/Vol] 2.0 10 3/uL 1.2-3.8 [facility] Lymphocytes/100 WBC Auto (Bl d)on 12-25-2023 Lymphocytes/100 WBC (Bld) 30.8 % 20.5-60.0 [facility] MCH Auto (RBC) [Entitic mass ]on 12-25-2023 MCH (RBC) [Entitic mass] 30.8 pg 26.7-34.0 [facility] MCHC Auto (RBC) [Mass/Vol]on 12-25-2023 MCHC (RBC) [Mass/Vol] 34.0 g/dL 29.9-35.2 [facility] MCV Auto (RBC) [Entitic vol] on 12-25-2023 MCV (RBC) [Entitic vol] 90.4 fL 81.0-99.0 [facility] Monocytes Auto (Bld) [#/Vol] on 12-25-2023 Monocytes (Bld) [#/Vol] 0.4 10 3/uL 0.3-0.8 [facility] Monocytes/100 WBC Auto (Bld) on 12-25-2023 Monocytes/100 WBC (Bld) 6.5 % 1.7-12.0 [facility] Neutrophils Auto (Bld) [#/Vo l]on 12-25-2023 Neutrophils (Bld) [#/Vol] 4.0 10 3/uL 1.4-6.5 [facility] Neutrophils/100 WBC Auto (Bl d)on 12-25-2023 Neutrophils/100 WBC (Bld) 59.8 % 43.0-75.0 [facility] No Panel Informationon 12-24 Eosinophils # (Auto) 0.1 10 3/uL 0.0-0.7 [facility] Immature Granulocyte # (Auto) 0.01 10 3/uL 0.00-0.03 [facility] Platelet mean volume Auto (B ld) [Entitic vol]on 12-25-2023 Platelet mean volume (Bld) [Entitic vol] 10.3 fL 9.5-13.5 [facility] Platelets Auto (Bld) [#/Vol] on 12-25-2023 Platelets (Bld) [#/Vol] 236 10 3/uL 150-450 [facility] RBC Auto (Bld) [#/Vol]on RBC (Bld) [#/Vol] 4.26 10 6/uL 4.20-5.40 [facility] Serum or plasma albumin/glob ulin mass ratioon 12-25-2023 Albumin/Globulin [Mass ratio] 0.9 {ratio} [facility] Serum or plasma anion gap de terminationon 12-25-2023 Anion gap [Moles/Vol] 10.8 mmol/L [facility] CBC AUTO DIFFon 11-01-2022 BASO # 0.1 103/ul Normal 0.0-0.1 [facility] Comment on above: Performed By: #### C BC #### [facility] [address] [address] [address] Jessie Navarrete Basophils/100 WBC (Bld) 1.3 % Normal 0.2-2.0 [facility] Comment on above: Performed By: #### C BC #### [facility] [address] [address] [address] Jessie Navarrete EO # 0.2 103/ul Normal 0.0-0.7 [facility] Comment on above: Performed By: #### C BC #### [facility] [address] [place] [address] Dr. Jessie Navarrete Eosinophils/100 WBC (Bld) 2.7 % Normal 0.9-7.0 [facility] Comment on above: Performed By: #### C BC #### [facility] [address] [place] [address] Dr. Jessie Navarrete Erythrocyte distribution width (RBC) [Ratio] 13.0 % Normal 11.0-15.0 [facility] Comment on above: Performed By: #### C BC #### [facility] [address] [place] [address] Dr. Jessie Navarrete Hematocrit (Bld) [Volume fraction] 39.2 % Normal 36.0-48.0 [facility] Comment on above: Performed By: #### C BC #### [facility] [address] [place] [address] Dr. Jessie Navarrete Hemoglobin (Bld) [Mass/Vol] 13.2 g/dL Normal 12.0-16.0 [facility] Comment on above: Performed By: #### C BC #### [facility] [address] [place] [address] Dr. Jessie Navarrete IG # 0.01 10e3/ul Normal 0.00-0.03 [facility] Comment on above: Performed By: #### C BC #### [facility] [address] [place] [address] Dr. Jessie Navarrete IG % 0.2 % Normal 0.0-0.5 [facility] Comment on above: Performed By: #### C BC #### [facility] [address] [place] [address] Dr. Jessie Navarrete LYMPH # 2.1 103/ul Normal 1.2-3.8 [facility] Comment on above: Performed By: #### C BC #### [facility] [address] [place] [address] Dr. Jessie Navarrete Lymphocytes/100 WBC (Bld) 33.4 % Normal 20.5-60.0 [facility] Comment on above: Performed By: #### C BC #### [facility] [address] [place] [address] Dr. Jessie Navarrete MANUAL DIFF REQ NO Normal [facility] Comment on above: Performed By: #### C BC #### [facility] [address] [place] [address] Dr. Jessie Navarrete MCH (RBC) [Entitic mass] 29.8 pg Normal 26.7-34.0 [facility] Comment on above: Performed By: #### C BC #### [facility] [address] [place] [address] Dr. Jessie Navarrete MCHC (RBC) [Mass/Vol] 33.7 g/dL Normal 29.9-35.2 [facility] Comment on above: Performed By: #### C BC #### [facility] [address] [place] [address] Dr. Jessie Navarrete MCV (RBC) [Entitic vol] 88.5 fL Normal 81.0-99.0 [facility] Comment on above: Performed By: #### C BC #### [facility] [address] [place] [address] Dr. Jessie Navarrete MONO # 0.5 103/ul Normal 0.3-0.8 [facility] Comment on above: Performed By: #### C BC #### [facility] [address] [place] [address] Dr. Jessie Navarrete Monocytes/100 WBC (Bld) 7.7 % Normal 1.7-12.0 [facility] Comment on above: Performed By: #### C BC #### [facility] [address] [place] [address] Dr. Jessie Navarrete NEUT # 3.4 103/ul Normal 1.4-6.5 [facility] Comment on above: Performed By: #### C BC #### [facility] [address] [place] [address] Dr. Jessie Navarrete Neutrophils/100 WBC (Bld) 54.7 % Normal 43.0-75.0 [facility] Comment on above: Performed By: #### C BC #### [facility] [address] [place] [address] Dr. Jessie Navarrete Platelet mean volume (Bld) [Entitic vol] 10.0 fL Normal 9.5-13.5 [facility] Comment on above: Performed By: #### C BC #### [facility] [address] [place] [address] Dr. Jessie Navarrete PLT 249 103/ul Normal 150-450 [facility] Comment on above: Performed By: #### C BC #### [facility] [address] [place] [address] Dr. Jessie Navarrete RBC 4.43 106/ul Normal 4.20-5.40 [facility] Comment on above: Performed By: #### C BC #### [facility] [address] [place] [address] Dr. Jessie Navarrete WBC 6.3 103/ul Normal 4.0-11.0 [facility] Comment on above: Performed By: #### C BC #### [facility] [address] [place] [address] Dr. Jessie Navarrete FREE T4on 11-01-2022 Free T4 [Mass/Vol] 1.06 ng/dL Normal 0.76-1.46 [facility] Comment on above: Performed By: #### F T4 #### [facility] [address] [address] [address] Jessie Navarrete GLYCOHEMOGLOBIN A1Con 2022 ADA RECOMMENDATION SEE BELOW Normal [facility] Comment on above: Result Comment: ADA RECOMMENDED LIMIT 4.0 - 6.0 ADA THERAPEUTIC TARGET < 7.0 ACTION SUGGESTED > 7.0 Performed By: #### D ATA1C #### [facility] [address] [address] [address] Jessie Navarrete Glucose [Mass/Vol] 103 mg/dL Normal [facility] Comment on above: Performed By: #### D ATA1C #### [facility] [address] [address] [address] Jessie Navarrete HbA1c (Bld) [Mass fraction] 5.2 % Normal 4.5-6.2 [facility] Comment on above: Performed By: #### D ATA1C #### [facility] Laboratory [address] [address] [address] Jessie Navarrete MG MAMM SCREEN 3D LINA CADon 11-01-2022 MG MAMM SCREEN 3D LINA CAD Patient: RENEE HAWK Exam Date: 11/01/2022 : 1955 Gender:F Ordering : DR AURORA FERGUSON M.D. Admission #: [id number] Family : Order #: [id number] CLICK HERE TO VIEW EXAM RADIOLOGY REPORT [...] stomach cancer at age 71. LOCATION: [facility] BREAST COMPOSITION: Scattered areas fibroglandular density. FINDINGS: [...] Rutherford MD on 11/01/2022 at 10:18 Normal [facility] PROF CHEM 8 (BAS METB)on Anion gap [Moles/Vol] 11.9 mmol/L Normal [facility] Comment on above: Performed By: #### B MP, TSH #### [facility] Laboratory [address] [place] [address] Dr. Jessie Navarrete Calcium [Mass/Vol] 9.5 mg/dL Normal 8.5-10.1 [facility] Comment on above: Performed By: #### B MP, TSH #### [facility] Laboratory [address] [place] [address] Dr. Jessie Navarrete Chloride [Moles/Vol] 104 mmol/L Normal 98-107 [facility] Comment on above: Performed By: #### B MARIE, TSH #### [facility] Laboratory [address] [place] [address] Dr. Jessie Navarrete CO2 [Moles/Vol] 28.7 mmol/L Normal 21.0-32.0 [facility] Comment on above: Performed By: #### B MP, TSH #### [facility] Laboratory [address] [place] [address] Dr. Jessie Navarrete Creatinine [Mass/Vol] 0.62 mg/dL Normal 0.55-1.02 [facility] Comment on above: Performed By: #### B MP, TSH #### [facility] Laboratory [address] [place] [address] Dr. Jessie Navarrete EGFR-AF MAURITIAN >60 Normal >=60 [facility] Comment on above: Performed By: #### B MP, TSH #### [facility] Laboratory [address] [place] [address] Dr. Jessie Navarrete EGFR-NON AF MAURITIAN >60 Normal >=60 [facility] Comment on above: Performed By: #### B MP, TSH #### [facility] Laboratory [address] [place] [address] Dr. Jessie Navarrete Glucose [Mass/Vol] 95 mg/dL Normal 74-106 [facility] Comment on above: Performed By: #### B MARIE, TSH #### [facility] Laboratory [address] [address] [address] Jessie Navarrete Potassium [Moles/Vol] 3.6 mmol/L Normal 3.5-5.1 [facility] Comment on above: Performed By: #### B MARIE, TSH #### [facility] Laboratory [address] [address] [address] Jessie Navarrete Sodium [Moles/Vol] 141 mmol/L Normal 136-145 [facility] Comment on above: Performed By: #### B MARIE, TSH #### [facility] Laboratory [address] [place] [address] Dr. Jessie Navarrete Urea nitrogen [Mass/Vol] 13.0 mg/dL Normal 7.0-18.0 [facility] Comment on above: Performed By: #### B MARIE, TSH #### [facility] Laboratory [address] [address] [address] Jessie Navarrete Urea nitrogen/Creatinine [Mass ratio] 21.0 mg/mg Normal [facility] Comment on above: Performed By: #### B MARIE, TSH #### [facility] Laboratory [address] [place] [address] Dr. Jessie Navarrete TSHon 11-01-2022 TSH 2.408 uIU/mL Normal 0.358-3.740 [facility] Comment on above: Performed By: #### B MARIE, TSH #### [facility] Laboratory [address] [place] [address] Dr. Jessie Navarrete IntraOperative Documentson 1 IntraOperative Documents [id number]#1 .00CD:127 Normal [facility] Coding Summary.on 03-13-2022 Coding Summary. [id number] G h0bWw+PGhlYWQ+UE9UOVA cX61rmMHodR5VC9gLLQ8K QJNSHDIULM9NAI5rxKJ4Z HbfP4VomxPc GbiyzOLvQY05NLc0DKC1a EjnREphdT9ukLFnY6x7Yr YcZD86lH07RKfuLAMkHpZ 3LjZpbjsgbWFy T0hkCxRyfUKqCgq+PHRhY mxlIHdpZHRoPScxMDAlJy MlcPihSV3aMj8nLSLzMUC vbGxhcHNlOiBj x7otRJWxQKsnHP9bxNwoM 0NcsYL7GSIzl8t8Uh45nE I+KCOyHFE7hXsuLVkpz76 7KzZil4fgZQN0 aPXzTVzfPOW7M06wo4I6W MNbUVToLLF0sVN8pC2gzC qybocgM6FkuZPrDrC7OZV 1dTHnsW1wfKbz nzpnaJ7iAwg+V37GFN1ST HODTB3VIbn2Q7HcWiojmF I+ON65IXGhCK22lZXtyNR tw3vybYh6MlQi PNPtVWD6hMlbPCpmw2YuB DDrZ24vjHNoy5N7YEOycJ morLNeAjFltYT3dX5zLCv gihtgz9qzroxa Ownnm1domk99iY57X21wC NcwTBZlNJJ0TEJsYAJyiI ufuk8qyS5lMr4+EYuvk5q bw3nshKv4GoFy KKKjavGduHedXJU3l5QoJ k16D4TvcBnvh1RuYrz1fi 48wHWey7J4rRS5SIuqYDQ xrW2zYKaiInV8 VBBzEvLorG25oEZvWPeiY p5ayMxjcJleWT8oCVSglw wfEISljO5qFGFkfRXhmSu wFO3wWLQxdqud k985PnBdXCD2LKHivJKeV 9YtbB7oWvRcTYNaHBAtC7 RapSSbQBeqK345JZvyRzV 9UZCxkbJuY5Wl BYPsvPskZzU4g2O9Wy4Vy 4UcfdnnPXK8RVmaIXYlEa R0ErKoFrL4Y9OsTmq3UWE ltKkrGZ1bR2Du EYQtoxsnesbceCO4YIOtC HGjcM87nMYjWRiuWr9fj3 J9g605RQLnJEWhvU90Co6 udDogMTBwdCBU cM5eigiku3rhbwauEvWtF RUsOYy5XIz4EMYumMccXa DvDHK6RuN0VGQ7sATwqK3 utZildlkluM7i Oyc+B27lbW3wKOX5GJZ8f zyzDTSgnaMfNP26AM50K0 RyPjwvdGFibGU+PGRpdiB qlNjoCB9oViAy y0tlz0CbYPumB6SwMWUmO KwlCnx3LYKnVMA9wMX5oK 2uQDReUHgag7L7pZF4L7L urlFhyw6nq3ow ZOGoMUfhM68itGYlv4A4G NZqqKI4VHQnuZryKaJkzQ 93Oyc+EKRniVeaq7InDer on1cmb7svpDu7 SnLrSARnqpVxlNnlIGX6k 3SpAx66E02aSXnsBHBgPZ UfWAEeIWIosDfzwj3fqE3 wIi8+PGNvbCB3 fQE8vQ5sJWBpJeB7UQsaS 010XuDexEBjGilgc8zgg5 kiaHg6AaSoSCGelcSueRr dTVL0w1YfXj12 P16mMWjxWQVrJKBzCPEnA FYdrEyexo7dgQ9eEs8+PC 6ul0whco61cS44qHD+PHR iUVI6jAbzDFnr AMOjcC4cYTuuNsH9TFUuB jFuiD39bHMbDHazCh7ycX whwLszNL6nCVCyklcbe68 3CqUsl8gbDYBg uRVvGQxcZIX3W80zh6F9A BFtBCYyEEP7fAJ7dE4xmT lnbjogbGVmdDsgdmVydGl vNZydXPqsU098 IHRvcDsnPlBhdGllbnQgT eSjWMr7V1FoCme2RZSueU kzTO2wcTJkWAhjZf5zrGp haWveMI3pBUWw eviry221QmQqz3cbTIUwb CNeFGzmJUH6U57db1F3SP GzNDEiGDW5rDQ1eU3cqBv nbjogbGVmdDsg ktDgcCjfXZhiQBheL582F HRvcDsnPkJpcnRoIERhdG E9CS02OB99jCAkx8O0fSR 2Z0FbCWZgpyhu bpiioDK1DPCpEIAhtH34A c5gdMovPj5iBQUtHUF4WQ LflJJjR7YrdK6cGcSbMMU iKQBwV1GtuYYs GAwoQ521VWcrYgT9GZXfr dOiT0BvTMVtaWigXaD9r5 F5Cq3JI5O3UT88ZI56lRC kv0P8iGP3S5Hh SJBspicgwiqhtFJ2VYFzB PBhgL94Zv6jcEcbBc8rGQ RlAPK9FRIurIIeM4AtgC6 yOiAjMDAwMDAw Y5TmfXOfPApfN554IZsbG oE7LJRgiyAxN6NaVZOcnX ukBnG8g7P6Lm8PKDa6IG6 6TX77pGOmd5Z5 tMA4A7AnMJRpenxcxwgux JP9AUNmYFFpnE40Dy3oxU ixGm0mNZWeBJC0FNSisWX iF2PyiE7rBmRk DWIvZRPgN3DihZDbZGdnX 008KPqlBtL7NDFkdcOyH6 YgOKUeyJxaRwM5b8Z5Da1 SZEAwHI54XHW9 wMX1CK65UH49E2WlZqhtt GFibGU+PHRhYmxlIHdpZH RoPScxMDAlJyBzdHlsZT0 rBm0gSNEdISEv qLfjcILmVpCaj5jbWHRbG OfwPK7lbUboB4CzrTX0UT Etf1w9Ia18Q49xZ5IegCH +THCqhQB8tNF9 cE3eVeFlSuA6AOclS431M gGcqKMlGswxm7eol1xaxN g5JfS4FSEmrpYaoEurGQZ 3h4PbSo66L84m IHdpZHRoPSIxNSUiIHZhb Cdbgj4hcF0dVz5+PGNvbC Z5oEW6pH3pHoJhTtO7SCa iP890HgXcbOUd Dhojj8qiz3bgsYx5WaOgH XKxuwWwcLfyRLO8m3OqCb 01Q0ApbZdlk1PnHol8mu1 5dEMgp2E9kQE0 K8EfTBWivarjsVJjiJdqV O4wZTRgualqKFEgrL8xNB UpY4g5AdMcViH4DEfcH6V hizJ8VDBguGAd UVxjYFL1F09gz6B7PAQcK LUfTUT3iQX0bV6xyVgyvd ogbGVmdDsgdmVydGljYWw pKVglK830ENEy aModNFHjbI7kNXPspLJkx SqzON1cSZAavxsqTkQEDR NICKPJIC5ABLfjlFD+PHR tLNH8sXvhUGtn RXZwjQ6iRCRkM0k1SlRjC gA4NTjpA1DsNCRkpvxuYg 31tL9aCiPrAoG7SRuxK8O fuvJ9IHIpeEVj WAtqTDK1Z45uj0Y1IIWsH UWqHUS1uYS1vR1zxWlmtu ogbGVmdDsgdmVydGljYWw zYQtuQ567KXAi rQjgTrAhKzX1WaT3MYQ5P 3GeDym7PJLfjGbhWS9eoD BwGMbhHm1pkBxitYurHI5 wNTBpbjtwYWRk zV3sHJKrqXDayRicST1aT NHbmtuki523WcJjPNV8GV CcrGDpT5ZszB6bJrBmDNH bBRZgU7CnyASo YVryW102JXhyVuJ0HYBba sAaY8WbPGAnoVurVxP5l3 C1Ci14WbUCARYyrvzqrXL +HMEsGFQ8fKap GBjoPKNnlB2tGWIdW2g6L pBiDnW5YPerG2KiWCKoth urCo42iX0bDuDdIiS8UYi jE3NvgmS9TZQu oDKvNIwcTVD5C09pv4W9Y YUwJYFzBMQ2aYJ8bG3orA lnbjogbGVmdDsgdmVydGl eSUlwSDctG392 IHRvcDsnPkZlbWFsZTwvd GQ+TPZfZLJ0yMfoMTxzYU NpvR7tOVIyF9n1BtLkUmW 5LFsjE1JgEVGz izmgUt13eO5sNgXkSgL0P ErhV7PwyqO2NNGebKJrLH gbKGA3K49le8U0MMWtZJM dONK9mNO9hG9t bGlnbjogbGVmdDsgdmVyd HetNVgjIRgpQ717FBIfjJ yzCqJzPmKkDAHvlaskU3G uVQRYFCusF4Iq S8ZdaReziDR+EO96bq30T 1PxCxrgGiv2UEEeAHP5hK L7eL5kXBYnEJnzi3W3oEG 2M7YsxoEzow8o z9veYYJaZXmhS55orOMyf 3Z9NPYcbUQ6ZKLtgZyoUp HvhL74Dnk+TXDcjFtlb3T yLesua4ahm0yl iPs6VdTjIPZxuwTwnHwqF CT3y0HzAf30K89jZRxhLB RoPSIzMCUiIHZhbGlnbj0 ouL3gPh9+PGNv wLZ0oBA4tZ2eUvJhPvB4M KsyA571OpXjlVZeMgduv4 zai1ppjLb9VkFmCGHxvmD aeNbqBZJ0l1Td Mb99W7UnoBvxq8PjNie8i e96bOJio5T7yDC6G6VgRS IrwkbygUQmwMerKQ8lSIT vhaptPBXaeR5t FIAdA4j4NeLuKvV0XEvhH 2FvqdE4KNNnaYXiCXNxkW YCuJ7xoufzo2qwvbhjQzO wUOHbERd2CDy1 WEMaeGufOqIjWAH0LbA1Z UN4pUFyqS4eeEjpnglryX 9wOyc+GLw8q6jplGHkGC0 esIE5BD22FL02 tQOul8P5dIK6V8RdJOTxb vmcwixmoUY1TDMzZFUtoZ 25Iw5kbGloKi2tTYViPWE 2MQBdhGEwS3Sc bA3wFcUuPFHwIGQdL0Bfh RLlLXfnS600ZBuyRtZ7ZE WpakLqP6ViDTSyoYehEjH 9c3X7Mh5XAC49 VM73MV81vPRbk8Q1wAO7P 3FeXHOooyepwhgvfMP5GS WcESTveO39Qc5loGelKn3 sCGGoZAM1BUCl kLZuO8DwaV6mHeKoUOBfM MQrV4OnqTKoBSolA071CB plFcL0MDCixyJqQ2RcBEY efAcjUbT5t3Z2 Li9VIe52NZ84XT85sRBte 2P2pFL4A6JxMOMqrfivpi ucpWM1TVOiWUVcnH40Dy0 ziCjvKm4iSPNl QNS8ERGfgLNjF9XyqA9rE kAzVOEfFMIoY7JpcBVwYC atY605ZZheExI5EESumgJ qR1AxOWGerKwq PxW4q5J1Rx5URBwbmns9F 3RkPjwvdHI+EX54NVXdUS 23gNNzvAWxd4cknTf0CtV nOALcWMC3yJpa PSdi (more content not included)... Normal [facility] Main OR Intraoperative Recor don 03-13-2022 Main OR Intraoperative Record IntraOp Document Type FT Summary Primary Physician: Beatriz Hood MD Finalized Date/Time: 03/13/22 14:16:39 Pt. Name: RENEE HAWK Umm/Sex: 1955 Female Med Rec #: [id number] Physician: Beatriz Hood MD Financial #: [id number] Pt. Type: A Room/Bed: [address] [address] Admit/Disch: 03/07/22 08:29:15 - 03/07/22 12:50:00 Institution: [...] 1 Entry 2 Entry 3 Case Attendee Jorgito TALAVERA, Tobin Hood MD, Beatriz Parker RN, Mike Terrazas Role Performed WEB PAGE DESIGNER Surgeon - Primary Personal Lines Appraiser - Primary Time In 03/07/22 10:56:00 03/07/22 11:02:00 03/07/22 10:56:00 Time Out 03/07/22 11:19:00 03/07/22 11:11:00 03/07/22 11:19:00 Procedure MYRINGOTOMY W/ MYRINGOTOMY W/ MYRINGOTOMY W/ INSERTION OF INSERTION OF INSERTION OF TUBES(Left), NASAL TUBES(Left), NASAL TUBES(Left), NASAL ENDOSCOPY(Left) ENDOSCOPY(Left) ENDOSCOPY(Left) Comments DR SCHMITT SUPERVISING Last Modified By: Johnathan KRISHNAMURTHY, Pili Mann RN, Pili Davila RN 03/07/22 11:19:51 03/07/22 11:19:51 03/07/22 11:19:51 Entry 4 Entry 5 Entry 6 Case Attendee Austin Flynn RN, Pili Del Cid PELLETIZER TENDER, Lorri Parks Role Performed Personal Lines Appraiser - Primary Personal Lines Appraiser - Primary Scrub - Primary Time In [...] RN, Naye Role Performed Scrub - Primary Personal Lines Appraiser - Relief Time In 03/07/22 10:56:00 03/07/22 11:17:00 Time Out 03/07/22 11:19:00 03/07/22 11:19:00 Procedure MYRINGOTOMY W/ MYRINGOTOMY W/ INSERTION OF INSERTION OF TUBES(Left), NASAL TUBES(Left), NASAL ENDOSCOPY(Left) ENDOSCOPY(Left) Comments ORIENTATION Last Modified By: Johnathan RN, Pili Davila RN 03/07/22 11:19:51 03/07/22 11:19:51 Perioperative Protocols FT [...] Keith Jimenez RN, Gee Callahan Terry T, Johnathan KRISHNAMURTHY, Nehemias Helm PELLETIZER TENDER, Nnamdi Tobar CST, Marion Victor Time Out Complete 03/07/22 11:04:00 Outcomes Met? Yes Last Modified By: Pili Mann RN 03/07/22 11:05:03 Post-Care Text: The [...] Yes No Primary Surgeon Sana LAMAS, Beatriz Hood MD, Beatriz Haas Start 03/07/22 11:05:00 03/07/22 [...] 2 Preop Charleen (more content not included)... Normal [facility] Postoperative Documentson Postoperative Documents [id number] #1.00CD:127 Normal [facility] Consent for Anesthesiaon Consent for Anesthesia [id number]#1 .00CD:127 [facility] Discharge Instructionson Discharge Instructions [id number]#1 .00CD:127 [facility] IntraOperative Documentson 0 03-08-2022 IntraOperative Documents [id number]#1 .00CD:127 Normal [facility] IntraOperative Documents [id number]#1 .00CD:127 [facility] IntraOperative Documents [id number]#1 .00CD:127 [facility] Outside Recordson 03-08-2022 Outside Records [id number]#1 .00CD:127 Normal [facility] Preoperative Documentson Preoperative Documents [id number]#1 .00CD:127 [facility] Preoperative Documents [id number]#1 .00CD:127 [facility] Consent for Treatmenton 02-08 Consent for Treatment [id number]#1 .00CD:127 [facility] H&P Updateon 03-07-2022 H&P Update [id number]# 1.00CD:127 [facility] Inpatient Patient Summaryon 03-07-2022 Inpatient Patient Summary [address] [id number] [facility] Clinical Discharge Instructions PERSON INFORMATION Name: RENEE HAWK PHYSICIANS Admitting Physician: Beatriz Hood MD Attending Physician: Beatriz Hood MD PCP: AURORA FERGUSON MD Discharge Diagnosis: ETD (eustachian tube dysfunction) Comment: PATIENT EDUCATION INFORMATION Instructions: Post Op Patient Instructions - FT (CUSTOM) Medication Leaflets: Follow up: With: Address: When: Beatriz Hood Comments: One month MEDICATION LIST Medications to Continue with No Changes Other Medications cholecalciferol (Vitamin D3 1000 intl units oral capsule) 1 Capsules By Mouth every day. levothyroxine (levothyroxine 75 mcg (0.075 mg) Tab) 1 Tablets. zinc sulfate (Zinc 140 mg (as elemental zinc 50 mg) oral tablet) 1 Tablets By Mouth every day. Comment: Jay [facility] Main OR PACU I Recordon 02-08 Main OR PACU I Record PACU Phase I Docum ent Type FT Summary Primary Physician: Beatriz Hood MD Finalized Date/Time: 03/07/22 12:07:08 Pt. Name: RENEE HAWK/Sex: 1955 Female Med Rec #: [id number] Physician: Beatriz Hood MD Financial #: [id number] Pt. Type: A Room/Bed: [place] [address] Admit/Disch: 03/07/22 08:29:15 - Institution: Case Times [...] Signed By: KATELIN DONNELLY RN 03/07/22 12:07 [facility] Main OR PACU II Recordon Main OR PACU II Record PACU Phase II Document Type FT Summary Primary Physician: Beatriz Hood MD Finalized Date/Time: 03/07/22 13:19:00 Pt. Name: RENEE HAWK/Sex: 1955 Female Med Rec #: [id number] Physician: Beatriz Hood MD Financial #: [id number] Pt. Type: A Room/Bed: [facility]/ Admit/Disch: 03/07/22 08:29:15 - Institution: Case Times [...] By: Naomi Dubon RN 03/07/22 13:19 Normal [facility] Main OR Preoperative Recordo n 03-07-2022 Main OR Preoperative Record PreOp Document Type FT Summary Primary Physician: Beatriz Hood MD Finalized Date/Time: 03/07/22 11:00:56 Pt. Name: RENEE HAWK/Sex: 1955 Female Med Rec #: [id number] Physician: Beatriz Hood MD Financial #: [id number] Pt. Type: A Room/Bed: [facility] Admit/Disch: 03/07/22 08:29:15 - Institution: Case Times [...] By: Pili Mann RN 03/07/22 11:00 Normal [facility] Monitor Recordon 03-07-2022 Monitor Record [id number]# 1.00CD:127 Normal [facility] Monitor Record [id number]# 1.00CD:127 Normal [facility] Operative Reporton Operative Report SURGERY DATE: [...] to the Recovery Room in good condition. Beatriz Hood Jr., M.D. Dictated: 03/07/2022 [id number] Transcribed: 03/07/2022 cc:Aurora Ferguson M.D. [facility] Comment on above: Result Comment: Elec tronically Signed By: Sana LAMAS, Beatriz Haas\.br\Date and Time Signed: 03/07/22 11:55 EDT Outpatient Surgery Discharge Instructionon 03-07-2022 Outpatient Surgery Discharge Instruction [place] [id number] Patient Discharge Instructions PERSON INFORMATION Name: RENEE HAWK Date of : 1955 Current Date: 03/07/2022 11:41:54 PHYSICIANS Admitting Physician: Beatriz Hood MD Discharge Diagnosis: ETD (eustachian tube dysfunction) RENEE HAWK has been given the following list of [...] Date Follow up: With: Address: When: Beatriz Hood Comments: One month Pharmacy Information: You may receive a survey from [employer] asking you to rate your care experience. Your feedback is important and will help us understand what we do well and how we can improve the quality of care we provide to you, your loved ones and our community. It?s an honor to serve you. Thank you for choosing [facility] HERE ARE THE MEDICATION CHANGES THAT [...] PATIENT EDUCATION INFORMATION Instructions: Medication Leaflets: Normal [facility] Patient Education - Texton 0 03-07-2022 Patient Education - Text (Inserted Image . Unable to display) Normal [facility] Progress Note-Physicianon Progress Note-Physician Patient: RENEE [...] or recorded. Procedure history: Biopsy of breast ([id number]). Social History Social & Psychosocial Habits Alcohol [...] bpm (MAR 07 08:45) SBP 117 mmHg (MAR 07 08:45) DBP 69 mmHg (MAR 07 08:45) SpO2 98 % (MAR 07 08:44) Pain assessment: Pain Assessment 03/07/2022 8:44 [...] Auto 53.0 % Lymph Auto 34.6 % Gooding Auto 7.8 % Eos Auto 2.5 % Basophil Auto 2.1 % HI Neutro Absolute 2.7 E9/L Lymph Absolute 1.8 E9/L Gooding Absolute 0.4 E9/L Eos Absolute 0.1 E9/L Basophil Absolute 0.1 E9/L Glucose Random 95 mg/dL BUN 14 mg/dL Creatinine 0.6 mg/dL eGFR >60 mL/min/1.73 m2 eGFR AA >60 mL/min/1.73 m2 Sodium Lvl 138 mmol/L Potassium Lvl 4.0 mmol/L Chloride 105 mmol/L CO2 27 mmol/L AGAP 10 mEq/L , No qualifying data available . Condition: Stable. Plan [place] [employer] (ASA) physical status classification: [...] Pt aware and desires to proceed. Normal [facility] Comment on above: Result Comment: Elec tronically Signed By: Aroldo Guerrero DO.br\Date and Time Signed: 03/07/22 10:56 EDT Coding Summary.on 03-06-2022 Coding Summary. CD:[id number] G h0bWw+PGhlYWQ+GK5GGHO oV32ziMShqC0ZB1gTKL2Y AHCNLHVSTO6FHF5gdKL9B CktN0HnucEb TjysxPIpMG33LAo1OFE0s QzxQQkesW8xcWOgA9s3Ka JoYO14bK15KYszAEYjCuY 3LjZpbjsgbWFy V0fsBxIskGObShp+PHRhY mxlIHdpZHRoPScxMDAlJy XkeYrcVG0lBo1vEUYhJNR vbGxhcHNlOiBj r4odAQBgOKqyVI9osDmgD 0WfhJH3CKHqy9g8Dh34sE I+DKTwHXC0iIjiVVnvy44 1IvWxj3mqGRN2 pHJeJSbfWIK9W25qa1X3Y ZBqVIOzHWW6wPN8xJ0ywK bzkkozN6JxdXUrZqN3YVB 9sQGkwN7gkAxt syhjuP3wWxg+T66JLU1CB VXETK0MWoq5I5CmQupuyI I+KP95MNFoPC48vHMniPQ lk4mseJt8CeGm FMQrFCM5dDhmECxji8KiF CHhA74iuQUga7F3GVSjeO qzcZWhFbYofYI5cF1dQWp cpdrjz5gqmsdy Hpwkm6clwc16eD44L02sU PhnISLtQGD8FKOfHLQrsJ kzqu6jkX9bZx4+JUlrt8q np4pryOy1BaHm VXJcjtGbqDftDFE2z9NaF h23A1AizYgtx2FePrv6vq 06kTBvt2A2kEK8MJvzHVR piQ8fBIavHvK3 BACmFyHmkT98dNEzPJxzM e5xjRqptLocYN8xJFQodl tmPYOyuQ8yIDVlaFFozWl yAO0hPBOihkmb o373HjZyKPS7WTNvuOPfH 2OywF7gMlByQNYyLZHyK2 WurVNjXYafT291MQgwUdV 1QPWsfhJzY4Ar NKPqeRswGzX9e0T6Jd7Jp 0RegmyyIJC1RBjmSXL4Zg Q5IkRaZqU7K8BnLms3JHR hyCgtNO7gK9Gx QAZyfatgvgqfkNK3OQMiD FZpwM89dSZaCIhgAs5gc2 W4x543ZSEoBBMolT32Md1 udDogMTBwdCBU lS9gzlemr1cxpgsaWeSrC NCwENu8AKx4ADPzyHbqGt XrUWV3LjW4CDB1lSCtiD6 hbLveagddmG4o Oyc+A08daS7tWCD6XKQ0v htpRZThdfCeRX72SU57K1 RyPjwvdGFibGU+PGRpdiB glEwwAX9zUiQq a8cpt7WzBIgiC3TyTDWvP BauUap6CQOiAJA1wFT3hR 4aLVLgIEebc5Z3mUT0C0L ujeZore6za4rp KZIsNIshO62clYDee1H1F AHwzKR5NWHcrBtzTsMegN 93Oyc+HKDpiVabo5MfQlq qp4grc7rvvBh7 NwRkRWPqxqNqhAvwYEM1f 6AzHx43C96iHDscDOPmVB DpAYWuWUPpaHwzhr5xaW5 wIi8+PGNvbCB3 hIH4uR4sCGBuExN0GUctX 113WuKzfQOaDwudm3cdp2 wmwJj1VnIxNBUaueUmaXj nFLO9j6BuAk79 E68tVXajJUKuJVQnTRCbE JUlzEbphd0uiD0oBv6+PC 2sk1hilf15uW57uZU+PHR zQJK5wBraCHqz DSNxsJ3oVFeeIuJ0HMZlB vQfdF55pRSaIMuwPt6mlF royYjoEO9mDYZqlacxc23 7RhLlf7ogFYLi lYDjKQxhDAY1M46og7L3P ENoSESmCMZ8qPM8yA3blV lnbjogbGVmdDsgdmVydGl cTVlpMCnfJ621 IHRvcDsnPlBhdGllbnQgT kMmVEg9N6ClAmq4KSDxkR yqMN4jjMCyTNdqCk2vgCr neSwdCN8lNDEb rpsdc856YkEcu2ioBRCyx GQeVOgtVKZ6W10an0P9IC HeZLUyRQG1oBD8kO8xeWv nbjogbGVmdDsg dfStnZvgTLioZCanI248G HRvcDsnPkJpcnRoIERhdG L5BX62XZ56hGTtg6F6gCQ 2B9VsOZDcburp olhsdUE2CZEtNSAxmO20T u7zzWliRe4xKQMxDNS7LI WveMUwX6OmlU4oRbKxLVD aXHXhM4MpySSm SVpcU964CQfrOrZ4JGFzt lLwQ0GyCMCrpZaoAoZ0e0 F1Xx5OJ6K7EL55SQ26sDA ag8L8mES5Z2Sk LKAotlvrnnrlhYE9OTUeW SMcjE92Dv1ikXvrSa1lWC WfNIU9QWLoyQViG7ArzH0 yOiAjMDAwMDAw C3QupGNgGGyoJ638AVezS kX1RFNensBlU7VmIEBxpD kwChW4f4E3Wj3OISs7HM2 6BZ17eWOyu4U4 uJH6G4BiFRAmccembkank OH5KDFvZNZzsQ36Dl6tpV dwRi1zOAGcGRR4XUTzgND qH7ExeS7rJqHt CYNzUUXhR3TofHZhIWfzS 835NHqfAyM7XJQankYzT4 BuSRQxnJsmPtL3u2H6Ke7 KNKHzJW96YHF5 fSQ7VP39XP54M4QgWxjic GFibGU+PHRhYmxlIHdpZH RoPScxMDAlJyBzdHlsZT0 lOb9yNSZeAZBg kFcnvXXtEzAgt9ssFQGyZ FssHH8zpLsnC4NkdLN7HP Hsj9b8Aq80V13cH2XapAR +CDXrcKC2dWW2 gP4uEcPwZfR8VBgfR791R vSvaTAtKiofm1peo9xfdX a5AmL5ZZDyzbTvoUcaPVS 3i0KnCe31O97c IHdpZHRoPSIxNSUiIHZhb Nasqo3tbA4cNe0+PGNvbC T5gTB9oR2sHmSdYhP5MDy tL212BfRksPJp Acdyn6fvv0ctiLu3CmBsV HRyonUepEfiHSC0v8SwNe 29I7CszJipa4YhHys7ht2 8xVBau0M0rPN4 Y4CiDOUbimbvhALwrNhpA H9uCMNzemqyYRGyeV1fVF PdU1a0YoXoTnO6IYtaG6T qsvN7JRGblIDf LRgtJPP3F07ae4S3YIBnI MZlZLX7jWR2aA5zsMusdo ogbGVmdDsgdmVydGljYWw sWPcoG772ZESw zNobGHDfoX2iMKTbfEHtf FwyBG5pBFXxeztrYaYHOM LQIDGTCW7ECDuitKX+PHR dBAD6kLqmRLsf FMCdzD1iYWYqK4c1IyPsH sS5ZMgzN0EdNRHqkvqrIh 55vC6eStVtBqZ9UAjtB7R llgY7FXUqoMRe MFkvOOK3R55qx0C1PLAhR XXiJMS4fNW6pG0hxKgvme ogbGVmdDsgdmVydGljYWw pEUlpA525DXVj pAqbLiImTcY4TfT7JKX3Q 4OqZhj9HYAojKniPO7kwD RgFWwqNs0soYoobQhjXZ3 wNTBpbjtwYWRk mM0oAAMdcPUpvEvbKY7dZ BWscbuua591NiUmSPO1CO DrhWTkR2WupR3xZtAbXYY pKQIvH9OwfGJg SBbnV074YYaqQaW7BCLqu zTxE7LvXUMplAjcYbF3j2 V8Bx89FnFHKZEbiouphDY +GMZzYCK3tUvb DCrzWFMioS8dZJUfD8a0V bPuEiG3QRzeL8MkHQJmjf rlQj74tL7kXgTvMrI4QVd zV2RbsgK0BOFg zZQkKIbmFQY9K48br6L7H NHrJQFyZBY7gHO0dE6ajN lnbjogbGVmdDsgdmVydGl rIJfyTVatK258 IHRvcDsnPkZlbWFsZTwvd GQ+OJMnHYN2oPbqFTiwAF EpiP2sFBDkV4a0JfEaAmG 3ZMweR2VbQBKq nbyjFk52tY1cGgVxSyS3K IjoT5XgyxU8WPUhpNQmVP mdPDH0I36xc8X5IENyZZL jTXM2yEL1pG9l bGlnbjogbGVmdDsgdmVyd NizRTseGLzcJ846YONalK rmWl15zYUveSadpvU6T2I kPjwvdHI+PC90 RTTbDK03tLSojMRll2amx Jv7LiMhSLVdBVV4xPhtUK sob6YcVNFcH79zuRCgn0R 6IGNvbGxhcHNl XfRwvGZ1eQ9hOLbtyfedh 8oainedZvdfp9ujor20oY 26J92bSGuwZTYhWVEsTQI oULZmhPvblo1v hI9aEz3+NGWucQF4qUS3h B3uZwMyLdI0FWczP698Lw LwwHGcHvitg9ijv3sekBh 9IjIwJSIgdmFs jOloZRX5d9HaOb82F04zK HdpZHRoPSIyMCUiIHZhbG trah8zpK5yGo7+YR1sm1w zhn57oP51vFA+ BCBiCRM5jNcoFClyWVKce Q6qCBwaCfF5BZGrUfAahG 36eEWrRLxeIk4rjYstvWm lCA9vUIWhxxig a486KyQon3eiGXJzxTOgA GixEVI0P44ie4H2XMJzTZ JgMDN3aHX6vC2ubNecyxd gbGVmdDsgdmVy tKhyVSszLAymD669XQKlv KceHbDftCHdF1ptwaOGJL 1lOjwvdGQ+ARVcWTB2oZg kIYqfKTJcmK6v RGRlM1f7RrFpIoU9ALjiX 1LgfrD6RXCicZBoMKZapE WVsI8buixkg9iblgmfUjU dKTCnEDc2JQg3 OOYdeYgyLlEzUEP6TnW9D DX6mKTobU7piJzazcpbdN 9wOyc+RklOOjwvdGQ+PHR fQOI8cErfVGul JCZgeW7eBQUlK8l4CkLhK eX9ZOfyB6JkrbX8BGSgaU RbQWCrpCIIhA6fwvade0b vcjogIzAwMDAw UZm0WQi1ANQkvKuuPzHmA RM1VrZ5TXW2jLPupO7fiI mpckbyuQ1xMtu+TVJOOjw vdGQ+PHRkIHN0 sLfoYXrzOYIgvB4aGTWpW 6p8NfHrWdL1ZXbsJ6Cexk P5OCPlmNWpVMNgtCRIgG2 zdrsmv7hzaogv VfApEEWrVQt5XTt8KSNjl FdrXgKrUIE3PuB3SPK7vN UhwH8eaZrbekcdhJ4jUrf +ZXJ0FYP0JT02 IE09C7FwCwudrZMlaKM+P HRhYmxlIHdpZHRoPScxMD AyOeLvyAvgSC3dUw5dPYW yLWNvbGxhcHNl OiBj (more content not included)... Normal [facility] Auto Diffon 03-01-2022 Basophils/100 WBC (Bld) 2.1 % High 0.0-2.0 F [facility] Comment on above: Order Comment: Order Added by Discern Expert. Performed By: #### [id number] ####[facility] [address] [place] [id number] Basophils/Leukocytes Auto (Bld) [Pure # fraction] 0.1 E9/L Normal 0.0-0.2 [facility] Comment on above: Order Comment: Order Added by Discern Expert. Performed By: #### 2 [id number] ####[facility] [id number] [place] [address] Eosinophils/100 WBC (Bld) 2.5 % Normal 0.0-8.0 [facility] Comment on above: Order Comment: Order Added by Discern Expert. Performed By: #### 2 [id number] ####[facility] [facility] [address] [place] [address] Eosinophils/Leukocytes Auto (Bld) [Pure # fraction] 0.1 E9/L Normal 0.0-0.5 [facility] Comment on above: Order Comment: Order Added by Discern Expert. Performed By: #### 2 [id number], [id number] ####[address] [address] Lymphocytes/100 WBC (Bld) 34.6 % Normal 14.0-50.0 [facility] Comment on above: Order Comment: Order Added by Discern Expert. Performed By: #### 2 759646, [id number] ####[address] [address] Lymphocytes/Leukocytes Auto (Bld) [Pure # fraction] 1.8 E9/L Normal 1.0-4.0 [facility] Comment on above: Order Comment: Order Added by Sudhir Expert. Performed By: #### 2 [id number], [id number] ####[address] [address] Monocytes/100 WBC (Bld) 7.8 % Normal 4.0-14.0 [facility] Comment on above: Order Comment: Order Added by Sudhir Expert. Performed By: #### 2 351084, 1159700 ####[address] [address] Monocytes/Leukocytes Auto (Bld) [Pure # fraction] 0.4 E9/L Normal 0.2-1.0 [facility] Comment on above: Order Comment: Order Added by Discern Expert. Performed By: #### 2 521017, [id number] ####[address] [address] Neutrophils/100 WBC (Bld) 53.0 % Normal 36.0-75.0 [facility] Comment on above: Order Comment: Order Added by Discern Expert. Performed By: #### 2 330211, [id number] ####[address] [address] Neutrophils/Leukocytes Auto (Bld) [Pure # fraction] 2.7 E9/L Normal 2.0-7.5 [facility] Comment on above: Order Comment: Order Added by Discern Expert. Performed By: #### 2 765789, [id number] ####[facility] [address] [place] [address] BUNon 03-01-2022 Urea nitrogen [Mass/Vol] 14 mg/dL Normal 5-21 [facility] Comment on above: Performed By: #### 1 [id number], 5169371, 2038894, 9725449, 4240306 ####[facility] [address] [place] [address] CBC w/ Auto Diffon Erythrocyte distribution width (RBC) [Ratio] 14.0 % Normal 10.9-14.2 [facility] Comment on above: Performed By: #### 2 874249, 5740755 ####[address] [address] Hematocrit (Bld) [Volume fraction] 38.5 % Normal 34.0-46.0 [facility] Comment on above: Performed By: #### 2 569554, 2303300 ####[address] [address] Hemoglobin (Bld) [Mass/Vol] 13.2 g/dL Normal 12.0-16.0 [facility] Comment on above: Performed By: #### 2 542235, 5040570 ####[address] [address] MCH (RBC) [Entitic mass] 30.1 pg Normal 27.0-34.0 [facility] Comment on above: Performed By: #### 2 887620, 1145064 ####[facility] [address] [place] [address] MCHC (RBC) [Mass/Vol] 34.4 g/dL Normal 31.4-36.0 [facility] Comment on above: Performed By: #### 2 988625, 3338132 ####[address] [address] MCV (RBC) [Entitic vol] 87.6 fL Normal 80.0-100.0 F [facility] Comment on above: Performed By: #### 2 549917, 8578688 ####[facility] [address] [place] [address] Platelet mean volume (Bld) [Entitic vol] 8.6 fL Normal 6.4-10.8 [facility] Comment on above: Performed By: #### 2 655627, 8785045 ####[facility] [address] [place] [address] Platelets (Bld) [#/Vol] 236.0 E9/L Normal 150.0-500.0 [facility] Comment on above: Performed By: #### 2 888554, 0518614 ####[address] [address] RBC (Bld) [#/Vol] 4.4 E12/L Normal 4.3-5.9 [facility] Comment on above: Performed By: #### 2 568398, 5881384 ####[facility] [address] [place] [address] WBC corrected for nucl RBC Auto (Bld) [#/Vol] 5.1 E9/L Normal 4.0-11.0 [facility] Comment on above: Performed By: #### 2 232577, 2477373 ####[facility] [address] [place] [address] CHEMISTRYOrdered By: SYSTEM SYSTEM on 03-01-2022 Anion gap [Moles/Vol] 10 mmol/L Normal 6 - 16 mEq/L [facility] Chloride [Moles/Vol] 105 mmol/L Normal 101 - 1 11 mmol/L [facility] CO2 [Moles/Vol] 27 mmol/L Normal 21 - 31 mmol/L [facility] Creatinine [Mass/Vol] 0.6 mg/dL Normal 0.5 - 1.3 mg/dL [facility] Remisol GFR/1.73 sq M.predicted among blacks MDRD (S/P/Bld) [Vol rate/Area] mL/min/1.73 m2 Normal >=59mL/min/1 .73 m2 [facility] Chem S GFR/1.73 sq M.predicted among non-blacks MDRD (S/P/Bld) [Vol rate/Area] mL/min/1.73 m2 Normal >=59mL/min/1 .73 m2 [facility] Chem S Glucose [Mass/Vol] 95 mg/dL Normal 55 - 199 mg/dL [facility] Remisol Potassium [Moles/Vol] 4.0 mmol/L Normal 3.5 - 5.3 mmol/L [facility] Remisol Sodium [Moles/Vol] 138 mmol/L Normal 135 - 145 mmol/L [facility] Remisol Urea nitrogen [Mass/Vol] 14 mg/dL Normal 5 - 21 mg/d L [facility] Remisol Consent for Treatmenton 02-08 Consent for Treatment [id number] .[id number]:127 Normal [facility] Creatinineon 03-01-2022 Creatinine [Mass/Vol] 0.6 mg/dL Normal 0.5-1.3 [facility] Comment on above: Performed By: #### 1 [id number], 5458994, 9763353, 8013502, 2360772 ####[facility] [address] [place] [address] Glucoseon 03-01-2022 Glucose [Mass/Vol] 95 mg/dL Normal 55-199 [facility] Comment on above: Performed By: #### 1 8327080, 6253428, 0203811, 3358668, 8186347 ####[facility] [address] [place] [address] HEMATOLOGYOrdered By: SYSTEM SYSTEM on 03-01-2022 Basophils/100 WBC (Bld) 2.1 % High 0.0 - 2.0 % FT HemeAutoSS Basophils/Leukocytes Auto (Bld) [Pure # fraction] [...] 7.8 % Normal 4.0 - 14.0 % [facility] HemeAutoSS Monocytes/Leukocytes Auto (Bld) [Pure # fraction] [...] MCH (RBC) [Entitic mass] 30.1 pg Normal 27. 0 - 34.0 pg [facility] HemeAutoSS MCHC (RBC) [Mass/Vol] 34.4 g/dL Normal 31.4 - 36.0 gm/dL [facility] HemeAutoSS MCV (RBC) [Entitic vol] 87.6 fL Normal 80.0 - 100.0 fL [facility] HemeAutoSS Platelet mean volume (Bld) [Entitic vol] 8.6 fL Normal 6.4 - 10.8 fL [facility] HemeAutoSS Platelets (Bld) [#/Vol] 236.0 E9/L Normal 150. 0 - 500.0 E9/L [facility] HemeAutoSS RBC (Bld) [#/Vol] 4.4 E12/L Normal 4.3 - 5.9 E12/L [facility] HemeAutoSS WBC corrected for nucl RBC Auto (Bld) [#/Vol] 5.1 E9/L Normal 4.0 - 11.0 E9/L [facility] HemeAutoSS Lyteson 03-01-2022 Anion gap [Moles/Vol] 10 mmol/L Normal 6-16 [facility] Comment on above: Performed By: #### 1 3219652, 5739904, 5194842, 9798385, 6662637 ####[facility] [address] [place] [address] Chloride [Moles/Vol] 105 mmol/L Normal 101-111 [facility] Comment on above: Performed By: #### 1 3975012, 7242892, 8431163, 3168792, 2235453 ####[facility] [address] [place] [address] CO2 [Moles/Vol] 27 mmol/L Normal 21-31 [facility] Comment on above: Performed By: #### 1 1707553, 5988955, 1489262, 3798443, 0444200 ####[facility] [address] [place] [address] Potassium [Moles/Vol] 4.0 mmol/L Normal 3.5-5.3 [facility] Comment on above: Performed By: #### 1 0179934, 1434141, 0418784, 5219251, 7614189 ####[facility] [address] [place] [address] Sodium [Moles/Vol] 138 mmol/L Normal 135-145 [facility] Comment on above: Performed By: #### 1 7249986, 3562539, 1664845, 8087170, 3662530 ####[facility] [address] [place] [address] XR Chest 2 Viewson XR Chest 2 [...] Porter MD Transcribed by: CARLOS ALBERTO Technologist: GISELE Normal [facility] eGFRon 03-01-2022 GFR/1.73 sq M.predicted among blacks MDRD (S/P/Bld) [Vol rate/Area] mL/min/{1.73_m2} Normal >=59 [facility] Comment on above: Order Comment: Order added by Discern Expert. Result Comment: eGFR is race adjusted. AA=. Performed By: #### 1 6708635, 4065493, 9453394, 4006346, 1532167 ####[facility] [address] [place] [address] GFR/1.73 sq M.predicted among non-blacks MDRD (S/P/Bld) [Vol rate/Area] mL/min/{1.73_m2} Normal >=59 [facility] Comment on above: Order Comment: Order added by Discern Expert. Result Comment: Excellence Coach lisa kidney disease could be indicated at eGFR's of less than 60 mL/min/1.73m2. Kidney failure is indicated at less than 15 mL/min/1.73m2. Performed By: #### 1 7127186, 3705705, 0414504, 3829594, 0741118 ####[facility] [address] [place] [address] Consent for Procedure/Surger yon 02-18-2022 Consent for Procedure/Surgery [id number] .[id number]:127 Normal [facility] Physician Orderon 01-30-2022 Physician Order [id number]:127 Normal [facility] Complete Blood Count Auto Di ffon 01-28-2021 Basophils (Bld) [#/Vol] 0.1 10*3/uL Normal 0.0-0.2 [facility] Comment on above: Result Comment: PERF ORMED BY: [place] [address] PATHOLOGIST [facility] V[facility] YU M.D. Performed By: #### C BC, ETOH, CMP #### [facility] [address] [place] [address] [place] Basophils/100 WBC (Bld) 1.9 % Normal . [facility] Comment on above: Performed By: #### C BC, ETOH, CMP #### [facility] [address] [place] [address] [place] Eosinophils (Bld) [#/Vol] 0.0 10*3/uL Normal 0.0-0.45 [facility] Comment on above: Performed By: #### C BC, ETOH, CMP #### [address] Eosinophils/100 WBC (Bld) 0.8 % Normal . [facility] Comment on above: Performed By: #### C BC, ETOH, CMP #### [address] Erythrocyte distribution width (RBC) [Ratio] 13.6 % Normal 11.9-15.3 [facility] Comment on above: Performed By: #### C BC, ETOH, CMP #### [address] Hematocrit (Bld) [Volume fraction] 37.0 % Normal 34.0-46.4 [facility] Comment on above: Performed By: #### C BC, ETOH, CMP #### [place] [address] [place] Hemoglobin (Bld) [Mass/Vol] 12.4 g/dL Normal 11.8-15.4 [facility] Comment on above: Performed By: #### C BC, ETOH, CMP #### [place] [address] [place] Lymphocytes (Bld) [#/Vol] 1.8 10*3/uL Normal 1.00-4.8 [facility] Comment on above: Performed By: #### C BC, ETOH, CMP #### [facility] [address] [place] [address] [place] Lymphocytes/100 WBC (Bld) 32.7 % Normal . [facility] Comment on above: Performed By: #### C BC, ETOH, CMP #### [facility] [address] [place] [address] [place] MCH (RBC) [Entitic mass] 30.0 pg Normal 24.7-34.3 [facility] Comment on above: Performed By: #### C BC, ETOH, CMP #### [facility] [address] MCV (RBC) [Entitic vol] 89.5 fL Normal 80-100 [facility] Comment on above: Performed By: #### C BC, ETOH, CMP #### [facility] [address] Mean Corpuscular HGB Conc 33.6 g/dL Normal 32.0-35.0 [facility] Comment on above: Performed By: #### C BC, ETOH, CMP #### [facility] [address] [place] [address] [place] Monocytes (Bld) [#/Vol] 0.4 10*3/uL Normal 0.0-0.8 [facility] Comment on above: Performed By: #### C BC, ETOH, CMP #### [facility] [address] [place] [address] [place] Monocytes/100 WBC (Bld) 8.0 % Normal . [facility] Comment on above: Performed By: #### C BC, ETOH, CMP #### [facility] [address] [place] [address] [place] Neutrophils (Bld) [#/Vol] 3.0 10*3/uL Normal 1.8-7.7 [facility] Comment on above: Performed By: #### C BC, ETOH, CMP #### [facility] [address] [place] [address] [place] Neutrophils/100 WBC (Bld) 56.6 % Normal . [facility] Comment on above: Performed By: #### C BC, ETOH, CMP #### [facility] [address] Nucleated RBC/100 WBC (Bld) [Ratio] 0.0 % Normal 0-0.5 [facility] Comment on above: Performed By: #### C BC, ETOH, CMP #### [address] Platelet mean volume (Bld) [Entitic vol] 8.3 fL Normal 6.3-10.7 [facility] Comment on above: Performed By: #### C BC, ETOH, CMP #### [address] Platelets (Bld) [#/Vol] 235 10*3/uL Normal 150-450 [facility] Comment on above: Performed By: #### C BC, ETOH, CMP #### [address] RBC (Bld) [#/Vol] 4.14 10*6/uL Normal 3.60-5.00 [facility] Comment on above: Performed By: #### C BC, ETOH, CMP #### [address] WBC (Bld) [#/Vol] 5.4 10*3/uL Normal 4.5-11.0 [facility] Comment on above: Performed By: #### C BC, ETOH, CMP #### [address] Comprehensive Metabolic Pane marylou 01-28-2021 Albumin [Mass/Vol] 3.8 g/dL Normal 3.2-5.5 [facility] Comment on above: Performed By: #### C BC, ETOH, CMP #### [address] Albumin/Globulin [Mass ratio] 1.2 {ratio} Normal [facility] Comment on above: Performed By: #### C BC, ETOH, CMP #### [address] ALP [Catalytic activity/Vol] 72 U/L Normal 32-92 [facility] Comment on above: Performed By: #### C BC, ETOH, CMP #### [facility] [address] [place] [address] [place] ALT [Catalytic activity/Vol] 14 U/L Normal 10-60 [facility] Comment on above: Performed By: #### C BC, ETOH, CMP #### [facility] [address] AST [Catalytic activity/Vol] 18 U/L Normal 10-42 [facility] Comment on above: Performed By: #### C BC, ETOH, CMP #### [facility] [address] Bilirubin [Mass/Vol] 0.5 mg/dL Normal 0.3-1.2 [facility] Comment on above: Performed By: #### C BC, ETOH, CMP #### [facility] [address] Calcium [Mass/Vol] 9.2 mg/dL Normal 8.2-10.2 [facility] Comment on above: Performed By: #### C BC, ETOH, CMP #### [facility] [address] [place] [address] [place] Chloride [Moles/Vol] 107 mmol/L Normal 95-114 [facility] Comment on above: Performed By: #### C BC, ETOH, CMP #### [facility] [address] [place] [address] [place] CO2 [Moles/Vol] 24.0 mmol/L Normal 22.0-30.0 [facility] Comment on above: Performed By: #### C BC, ETOH, CMP #### [facility] [address] [place] [address] [place] Creatinine [Mass/Vol] 0.64 mg/dL Normal 0.44-1.03 [facility] Comment on above: Performed By: #### C BC, ETOH, CMP #### [facility] [address] [place] [address] [place] Creatinine Clr Calc Pharmacy 75.81 Normal [facility] Comment on above: Result Comment: PERF ORMED BY: [place] [address] PATHOLOGIST [facility] VIVI YU M.D. Performed By: #### C BC, ETOH, CMP #### [facility] [address] Estimated GFR ( Padmini > 60 [facility] Comment on above: Result Comment: GFR estimated reference range: According to KDOQI guidelines, <60 ml/min/1.73m2 is sufficient to diagnose a patient with chronic kidney disease. Performed By: #### C BC, ETOH, CMP #### [address] Estimated GFR (Non- Am > 60 [facility] Comment on above: Performed By: #### C BC, ETOH, CMP #### [address] Globulin (S) [Mass/Vol] 3.1 g/dL Normal [facility] Comment on above: Performed By: #### C BC, ETOH, CMP #### [address] Glucose [Mass/Vol] 149 mg/dL High 70-100 [facility] Comment on above: Result Comment: [place] Glucose Reference Range is dependent on time and content of last meal. Glucose of more than 200 mg/dL in a nonstressed, ambulatory subject supports the diagnosis of Diabetes Mellitus. ADA recommended reference range Performed By: #### C BC, ETOH, CMP #### [address] Potassium [Moles/Vol] 3.7 mmol/L Normal 3.5-5.1 [facility] Comment on above: Performed By: #### C BC, ETOH, CMP #### [address] Protein [Mass/Vol] 6.9 g/dL Normal 6.1-7.9 [facility] Comment on above: Performed By: #### C BC, ETOH, CMP #### [facility] [address] Sodium [Moles/Vol] 141 mmol/L Normal 136-146 [facility] Comment on above: Performed By: #### C BC, ETOH, CMP #### [address] Urea nitrogen [Mass/Vol] 9 mg/dL Normal 9-23 [facility] Comment on above: Performed By: #### C BC, ETOH, CMP #### [place] [address] [place] Drug Screen,Urineon 01-29-20 21 Amphetamine Screen,Urine Negative Normal Negative [facility] Comment on above: Performed By: #### U RDS, UA #### [place] [address] [place] Barbiturate Screen,Urine Negative Normal Negative [facility] Comment on above: Performed By: #### U RDS, UA #### [place] [address] [place] Benzodiazepines Screen,Urine Negative Normal Negative [facility] Comment on above: Performed By: #### U RDS, UA #### [place] [address] [place] Cannabinoid Screen,Urine Negative Normal Negative [facility] Comment on above: Result Comment: Thes e are unconfirmed results and should not be used for legal purposes. Drug Cut-Off Concentration: AMPH 1000 ng/mL KIKE 200 ng/mL ANA 200 ng/mL COCM 300 ng/mL OP 300 ng/mL PCP 25 ng/mL THC 20 ng/mL PERFORMED BY: [place] [address] PATHOLOGIST [facility] YU M.D. Performed By: #### U RDS, UA #### [place] [address] [place] Cocaine Screen,Urine Negative Normal Negative [facility] Comment on above: Performed By: #### U RDS, UA #### [place] [address] [place] Opiate Screen,Urine Negative Normal Negative [facility] Comment on above: Performed By: #### U RDS, UA #### [facility] [address] [place] [address] Phencyclidine Screen,Urine Negative Normal Negative [facility] Comment on above: Performed By: #### U RDS, UA #### [facility] [address] [place] [id number] [place] ECG 12 lead ECGon 01-28-2021 ECG 12 lead ECG [facility] [place] [address] [place] [address] Electrocardiograph Report Signed Patient: Renee Hawk MR#: [id number] 8 : 1955 Acct:[id number] Age/Sex: 65 / F ADM Date: 01/28/21 Loc: ER Room: Type: [facility] ER Attending Dr: Ordering Provider: Chay [...] DO 01/28/21 0040 Signed By: 01/28/21 0604 [facility] Ethyl Alcohol Profileon 01-08 Ethanol [Mass/Vol] 188 mg/dL Normal [facility] Comment on above: Performed By: #### C BC, ETOH, CMP #### [facility] [address] [place] [address] Percent Ethanol 0.188 % [facility] Comment on above: Result Comment: PERF ORMED BY: [address] [place] [address] PATHOLOGIST [facility] V[facility]I YU M.D. Performed By: #### C BC, ETOH, CMP #### [facility] [address] [place] [address] [place] Urinalysison 01-28-2021 Appearance (U) Clear Normal Clear [facility] Comment on above: Order Comment: Name Collection Type:: Straight Catheter Performed By: #### U RDS, UA #### [facility] [address] [place] [address] [place] Bilirubin,Urine Negative Normal Negative [facility] Comment on above: Order Comment: Name Collection Type:: Straight Catheter Performed By: #### U RDS, UA #### [facility] [address] [place] [address] [place] Color (U) Yellow Normal Yellow [facility] Comment on above: Order Comment: Name Collection Type:: Straight Catheter Performed By: #### U RDS, UA #### [facility] [address] [place] [address] [place] Glucose Ql (U) Normal Normal Normal [facility] Comment on above: Order Comment: Name Collection Type:: Straight Catheter Performed By: #### U RDS, UA #### [facility] [address] [place] [address] [place] Ketones Ql (U) Negative Normal Negative [facility] Comment on above: Order Comment: Name Collection Type:: Straight Catheter Performed By: #### U RDS, UA #### [facility] [address] [place] [address] [place] Leukocyte esterase Test strip Ql (U) Negative Normal Negative [facility] Comment on above: Order Comment: Name Collection Type:: Straight Catheter Performed By: #### U RDS, UA #### [facility] [address] [place], [place] [address] [place] Nitrite,Urine Negative Normal Negative [facility] Comment on above: Order Comment: Name Collection Type:: Straight Catheter Performed By: #### U RDS, UA #### [facility] [address] [place], [place] [address] [place] Occult Blood,Urine Negative Normal Negative [facility] Comment on above: Order Comment: Name Collection Type:: Straight Catheter Result Comment: PERF ORMED BY: [place] [address] PATHOLOGIST [facility]RG[facility]ARE [facility]I YU M.D. Performed By: #### U RDS, UA #### [address] pH (U) 5.0 [pH] Normal 5.0-9.0 [facility] Comment on above: Order Comment: Name Collection Type:: Straight Catheter Performed By: #### U RDS, UA #### [place] [address] [place] Protein,Urine Negative Normal Negative [facility] Comment on above: Order Comment: Name Collection Type:: Straight Catheter Performed By: #### U RDS, UA #### [address] Specificy [place],Urine 1.014 Normal 1.001-1.030 [facility] Comment on above: Order Comment: Name Collection Type:: Straight Catheter Performed By: #### U RDS, UA #### [place] [address] [place] Urobilinogen,Urine Normal Normal Normal [facility] Comment on above: Order Comment: Name Collection Type:: Straight Catheter Performed By: #### U RDS, UA #### [address] Vital Signs Date Time Vital Sign Value Performing Clinician Facility 02-14-2025 11: Body height 165.1 cm Aurora Ferguson MD Work Phone: [facility] 02-14-2025 11: Body mass index (BMI) [Ratio] 28.5 kg/m2 Aurora Ferguson MD Work Phone: [facility] 02-14-2025 11: Body weight 77.7 kg Aurora Ferguson MD Work Phone: [facility] 02-14-2025 11: Diastolic blood pressure 59 mm[Hg] Aurora Ferguson MD Work Phone: [facility] 02-14-2025 11:17-0400 Heart rate 75 /min Aurora Ferguson MD Work Phone: [facility] 02-14-2025 11:17-0400 Respiratory rate 18 /min Aurora Ferguson MD Work Phone: [facility] 02-14-2025 11:17-0400 SaO2% (BldA) [Mass fraction] 100 % Aurora Ferguson MD Work Phone: [facility] 02-14-2025 11:17-0400 Systolic blood pressure 130 mm[Hg] Aurora Ferguson MD Work Phone: [facility] 01-06-2025 10:58-0400 Body height 165.1 cm Aurora Ferguson MD Work Phone: [facility] 01-06-2025 10:58-0400 Body mass index (BMI) [Ratio] 28 kg/m2 Aurora Ferguson MD Work Phone: [facility] 01-06-2025 10:58-0400 Body weight 76.43 kg Aurora Ferguson MD Work Phone: [facility] 01-06-2025 10:58-0400 Diastolic blood pressure 73 mm[Hg] Aurora Ferguson MD Work Phone: [facility] 01-06-2025 10:58-0400 Heart rate 73 /min Aurora Ferguson MD Work Phone: [facility] 01-06-2025 10:58-0400 Respiratory rate 12 /min Aurora Ferguson MD Work Phone: [facility] 01-06-2025 10:58-0400 SaO2% (BldA) [Mass fraction] 97 % Aurora Ferguson MD Work Phone: [facility] 01-06-2025 10:58-0400 Systolic blood pressure 131 mm[Hg] Aurora Ferguson MD Work Phone: [facility] 10-01-2024 11:00-0400 Body height 165.1 cm [facility] 10-01-2024 11:00-0400 Body mass index (BMI) [Ratio] 26.6 kg/m2 [facility] 10-01-2024 11:00-0400 Body weight 72.8 kg [facility] 10-01-2024 11:00-0400 Diastolic blood pressure 56 mm[Hg] [facility] 10-01-2024 11:00-0400 Heart rate 72 /min [facility] 10-01-2024 11:00-0400 Respiratory rate 18 /min [facility] 10-01-2024 11:00-0400 SaO2% (BldA) [Mass fraction] 100 % [facility] 10-01-2024 11:00-0400 Systolic blood pressure 115 mm[Hg] [facility] 07-09-2024 11:38-0500 Body height 165.1 cm [facility] 07-09-2024 11:38-0500 Body mass index (BMI) [Ratio] 26.4 kg/m2 [facility] 07-09-2024 11:38-0500 Body weight 72.23 kg [facility] 07-09-2024 11:38-0500 Diastolic blood pressure 60 mm[Hg] [facility] 07-09-2024 11:38-0500 Heart rate 75 /min [facility] 07-09-2024 11:38-0500 Respiratory rate 18 /min [facility] 07-09-2024 11:38-0500 SaO2% (BldA) [Mass fraction] 99 % [facility] 07-09-2024 11:38-0500 Systolic blood pressure 113 mm[Hg] [facility] 04-12-2024 10:52-0500 Body height 165.1 cm [facility] 04-12-2024 10:52-0500 Body mass index (BMI) [Ratio] 26.4 kg/m2 [facility] 04-12-2024 10:52-0500 Body weight 71.86 kg [facility] 04-12-2024 10:52-0500 Diastolic blood pressure 57 mm[Hg] [facility] 04-12-2024 10:52-0500 Heart rate 78 /min [facility] 04-12-2024 10:52-0500 Respiratory rate 18 /min [facility] 04-12-2024 10:52-0500 SaO2% (BldA) [Mass fraction] 100 % [facility] 04-12-2024 10:52-0500 Systolic blood pressure 122 mm[Hg] [facility] 01-22-2024 13:52-0400 Body height 165.1 cm [facility] 01-22-2024 13:52-0400 Body mass index (BMI) [Ratio] 26.7 kg/m2 [facility] 01-22-2024 13:52-0400 Body weight 72.82 kg [facility] 01-22-2024 13:52-0400 Diastolic blood pressure 67 mm[Hg] [facility] 01-22-2024 13:52-0400 Heart rate 74 /min [facility] 01-22-2024 13:52-0400 Respiratory rate 18 /min [facility] 01-22-2024 13:52-0400 SaO2% (BldA) [Mass fraction] 100 % [facility] 01-22-2024 13:52-0400 Systolic blood pressure 129 mm[Hg] [facility] 12-26-2023 10:35-0400 Body height 165.1 cm [facility] 12-26-2023 10:35-0400 Body mass index (BMI) [Ratio] 26.9 kg/m2 [facility] 12-26-2023 10:35-0400 Body weight 73.56 kg [facility] 12-26-2023 10:35-0400 Diastolic blood pressure 62 mm[Hg] [facility] 12-26-2023 10:35-0400 Heart rate 72 /min [facility] 12-26-2023 10:35-0400 Respiratory rate 16 /min [facility] 12-26-2023 10:35-0400 SaO2% (BldA) [Mass fraction] 100 % [facility] 12-26-2023 10:35-0400 Systolic blood pressure 129 mm[Hg] [facility] 12-25-2023 14:34-0400 Body height 165.1 cm [facility] 12-25-2023 14:34-0400 Body mass index (BMI) [Ratio] 26.9 kg/m2 [facility] 12-25-2023 14:34-0400 Body weight 73.48 kg [facility] 12-25-2023 14:34-0400 Diastolic blood pressure 76 mm[Hg] [facility] 12-25-2023 14:34-0400 Heart rate 80 /min [facility] 12-25-2023 14:34-0400 Systolic blood pressure 151 mm[Hg] [facility] 11-20-2023 14:25-0400 Body height 165.1 cm [facility] 11-20-2023 14:25-0400 Body mass index (BMI) [Ratio] 27.3 kg/m2 [facility] 11-20-2023 14:25-0400 Body weight 74.61 kg [facility] 11-20-2023 14:25-0400 Diastolic blood pressure 66 mm[Hg] [facility] 11-20-2023 14:25-0400 Heart rate 80 /min [facility] 11-20-2023 14:25-0400 Respiratory rate 16 /min [facility] 11-20-2023 14:25-0400 SaO2% (BldA) [Mass fraction] 95 % [facility] 11-20-2023 14:25-0400 Systolic blood pressure 144 mm[Hg] [facility] 10-09-2023 11:10-0400 Body height 165.1 cm [facility] 10-09-2023 11:10-0400 Body mass index (BMI) [Ratio] 28 kg/m2 [facility] 10-09-2023 11:10-0400 Body weight 76.45 kg [facility] 10-09-2023 11:10-0400 Diastolic blood pressure 74 mm[Hg] [facility] 10-09-2023 11:10-0400 Heart rate 80 /min [facility] 10-09-2023 11:10-0400 Respiratory rate 18 /min [facility] 10-09-2023 11:10-0400 SaO2% (BldA) [Mass fraction] 98 % [facility] 10-09-2023 11:10-0400 Systolic blood pressure 147 mm[Hg] [facility] 08-28-2023 10:59-0400 Body height 165.1 cm [facility] 08-28-2023 10:59-0400 Body mass index (BMI) [Ratio] 28 kg/m2 [facility] 08-28-2023 10:59-0400 Body weight 76.37 kg [facility] 08-28-2023 10:59-0400 Diastolic blood pressure 71 mm[Hg] [facility] 08-28-2023 10:59-0400 Heart rate 81 /min [facility] 08-28-2023 10:59-0400 Respiratory rate 18 /min [facility] 08-28-2023 10:59-0400 SaO2% (BldA) [Mass fraction] 98 % [facility] 08-28-2023 10:59-0400 Systolic blood pressure 144 mm[Hg] [facility] 07-23-2023 15:11-0500 Body height 167.6 cm Beatriz Hood MD Work Phone: [facility] 07-23-2023 15:11-0500 Body mass index (BMI) [Ratio] 28.08 kg/m2 Beatriz Hood MD Work Phone: [facility] 07-23-2023 15:11-0500 Body weight 78.93 kg Beatriz Hood MD Work Phone: [facility] 07-23-2023 15:11-0500 Diastolic blood pressure 87 mm[Hg] Beatriz Hood MD Work Phone: [facility] 07-23-2023 15:11-0500 Systolic blood pressure 137 mm[Hg] Beatriz Hood MD Work Phone: [facility] 07-15-2023 15:20-0500 Body height 167.6 cm Beatriz Hood MD Work Phone: [facility] 07-15-2023 15:20-0500 Body mass index (BMI) [Ratio] 28.08 kg/m2 Beatriz Hood MD Work Phone: [facility] 07-15-2023 15:20-0500 Body weight 78.93 kg Beatriz Hood MD Work Phone: [facility] 07-15-2023 15:20-0500 Diastolic blood pressure 80 mm[Hg] Beatriz Hood MD Work Phone: [facility] 07-15-2023 15:20-0500 Systolic blood pressure 115 mm[Hg] Beatriz Hood MD Work Phone: [facility] 07-14-2023 10:30-0500 Body height 162.56 cm Aurora Ferguson Other [employer] Other 07-14-2023 10:30-0500 Body mass index (BMI) [Ratio] 29.52 kg/m2 Aurora Ferguson Other [employer] Other 07-14-2023 10:30-0500 Body weight 78.02 kg Aurora Ferguson Other [employer] Other 07-14-2023 10:30-0500 Diastolic blood pressure 77 mm[Hg] Aurora Ferguson Other [employer] Other 07-14-2023 10:30-0500 Systolic blood pressure 129 mm[Hg] Aurora Ferguson Other [employer] Other 02-13-2023 10:30-0400 Body height 162.56 cm Aurora Fegruson Other [employer] Other 02-13-2023 10:30-0400 Body mass index (BMI) [Ratio] 28.77 kg/m2 Aurora Ferguson Other [employer] Other 02-13-2023 10:30-0400 Body weight 76.02 kg Aurora Ferguson Other [employer] Other 02-13-2023 10:30-0400 Diastolic blood pressure 81 mm[Hg] Aurora Ferguson Other [employer] Other 02-13-2023 10:30-0400 Systolic blood pressure 140 mm[Hg] Aurora Ferguson Other [employer] Other 01-16-2023 11:00-0400 Body height 162.56 cm Aurora Ferguson Other [employer] Other 01-16-2023 11:00-0400 Body mass index (BMI) [Ratio] 28.66 kg/m2 Aurora Ferguson Other [employer] Other 01-16-2023 11:00-0400 Body weight 75.75 kg Aurora Ferguson Other [employer] Other 01-16-2023 11:00-0400 SaO2% (BldA) [Mass fraction] 95 % Aurora Ferguson Other [employer] Other 10-31-2022 10:00-0400 Body height 162.56 cm Aurora Ferguson Other [employer] Other 10-31-2022 10:00-0400 Body mass index (BMI) [Ratio] 29.52 kg/m2 Aurora Ferguson Other [employer] Other 10-31-2022 10:00-0400 Body weight 78.02 kg Aurora Ferguson Other [employer] Other 10-31-2022 10:00-0400 Diastolic blood pressure 74 mm[Hg] Aurora Monica Other [facility] [employer] Other 10-31-2022 10:00-0400 Systolic blood pressure 160 mm[Hg] Aurora Monica Other [facility] [employer] Other 03-07-2022 12:38-0400 Blood Pressure Location Beatriz Timmis [facility] 03-07-2022 12:38-0400 Body temperature 97.88 [degF] Beatriz Timmis [facility] 03-07-2022 12:38-0400 BP/Pulse Patient Position Beatriz Timmis [facility] 03-07-2022 12:38-0400 Diastolic blood pressure 71 mm[Hg] Beatriz Timmis [facility] 03-07-2022 12:38-0400 Heart rate 70 /min Beatriz Timmis [facility] 03-07-2022 12:38-0400 Mean blood pressure 94 mm[Hg] Beatriz Timmis [facility] 03-07-2022 12:38-0400 Respiratory rate 16 /min Beatriz Timmis [facility] 03-07-2022 12:38-0400 SaO2% (BldA) [Mass fraction] 98 % Beatriz Timmis [facility] 03-07-2022 12:38-0400 Systolic blood pressure 139 mm[Hg] Beatriz Timmis [facility] 03-07-2022 11:53-0400 Blood Pressure Location Beatriz Timmis [facility] 09-29-2022 11:53-0400 BP/Pulse Patient Position Beatriz Timmis [facility] 03-07-2022 11:53-0400 Diastolic blood pressure 79 mm[Hg] Beatriz Timmis [facility] 03-07-2022 11:53-0400 Heart rate 73 /min Beatriz Timmis [facility] 03-07-2022 11:53-0400 Mean blood pressure 101 mm[Hg] Beatriz Timmis [facility] 03-07-2022 11:53-0400 Respiratory rate 16 /min Beatriz Timmis [facility] 03-07-2022 11:53-0400 SaO2% (BldA) [Mass fraction] 97 % Beatriz Timmis [facility] 03-07-2022 11:53-0400 Systolic blood pressure 146 mm[Hg] Beatriz Timmis [facility] 03-07-2022 11:53-0400 Body temperature 97.52 [degF] Beatriz Timmis [facility] 03-07-2022 11:45-0400 Body temperature 97.52 [degF] Beatriz Timmis [facility] 03-07-2022 11:45-0400 Diastolic blood pressure 67 mm[Hg] Beatriz Timmis [facility] 03-07-2022 11:45-0400 Heart rate 71 /min Beatriz Timmis [facility] 03-07-2022 11:45-0400 Respiratory rate 12 /min Beatriz Timmis [facility] 03-07-2022 11:45-0400 SaO2% (BldA) [Mass fraction] 97 % Beatriz Timmis [facility] 03-07-2022 11:45-0400 Systolic blood pressure 130 mm[Hg] Beatriz Timmis [facility] 03-07-2022 11:35-0400 Respiratory rate 13 /min Beatriz Timmis [facility] 03-07-2022 11:30-0400 Respiratory rate 16 /min Beatriz Timmis [facility] 03-07-2022 11:20-0400 Body temperature 97.34 [degF] Beatriz Timmis [facility] 03-07-2022 11:15-0400 Respiratory rate 30 /min Beatriz Timmis [facility] 03-07-2022 08:45-0400 Blood Pressure Location Beatriz Timmis [facility] 03-07-2022 08:45-0400 Mean blood pressure 85 mm[Hg] Beatriz Timmis [facility] 03-07-2022 08:45-0400 Heart rate 62 /min Beatriz Timmis [facility] 03-07-2022 08:44-0400 Body temperature 97.88 [degF] Beatriz Timmis [facility] 03-07-2022 08:44-0400 Mean blood pressure 87 mm[Hg] Beatriz Timmis [facility] 03-01-2022 09:35-0400 Blood Pressure Location Beatriz Timmis [facility] 03-01-2022 09:35-0400 Body temperature 97.88 [degF] Beatriz Timmis [facility] 03-01-2022 09:35-0400 BP/Pulse Patient Position Beatriz Timmis [facility] 03-01-2022 09:35-0400 Diastolic blood pressure 76 mm[Hg] Beatriz Timmis [facility] 03-01-2022 09:35-0400 Heart rate 59 /min Beatriz Timmis [facility] 03-01-2022 09:35-0400 Mean blood pressure 94 mm[Hg] Beatriz Timmis [facility] 03-01-2022 09:35-0400 Respiratory rate 16 /min Beatriz Timmis [facility] 03-01-2022 09:35-0400 Systolic blood pressure 130 mm[Hg] Beatriz Timmis [facility] 03-01-2022 09:34-0400 Blood Pressure Location Beatriz Timmis [facility] 03-01-2022 09:34-0400 BP/Pulse Patient Position Beatriz Timmis [facility] 03-01-2022 09:34-0400 Diastolic blood pressure 61 mm[Hg] Beatriz Timmis [facility] 03-01-2022 09:34-0400 Heart rate 60 /min Beatriz Timmis [facility] 03-01-2022 09:34-0400 Mean blood pressure 83 mm[Hg] Beatriz Timmis [facility] 03-01-2022 09:34-0400 Respiratory rate 16 /min Beatriz Timmis [facility] 03-01-2022 09:34-0400 SaO2% (BldA) [Mass fraction] 100 % Beatriz Timmis [facility] 03-01-2022 09:34-0400 Systolic blood pressure 126 mm[Hg] Beatriz Hood [facility] Encounters Encounter Date Encounter Type Care Provider Facility Start: 02-14-2025 End: 02-14-2025 ambulatory Aurora Ferguson MD Work Phone: [facility] Work Phone: Start: 02-14-2025 End: 02-14-2025 Patient encounter procedure Zak Gordon MD -[facility] Work Phone: Start: 01-07-2025 Non-patient / Non-visit Aurora mireles MD -[facility] Work Phone: Start: 01-06-2025 End: 01-06-2025 ambulatory Aurora Ferguson MD Work Phone: [facility] Work Phone: Start: 01-06-2025 End: 01-06-2025 Patient encounter procedure Aurora Ferguson MD -[facility] Work Phone: Start: 10-01-2024 End: 10-01-2024 ambulatory [facility] Work Phone: Start: 10-01-2024 End: 10-01-2024 Patient encounter procedure [facility] Work Phone: Start: 07-09-2024 End: 07-09-2024 ambulatory [facility] Work Phone: Start: 07-09-2024 End: 07-09-2024 Patient encounter procedure [facility] Work Phone: Start: 04-12-2024 End: 04-12-2024 ambulatory [facility] Work Phone: Start: 04-12-2024 End: 04-12-2024 Patient encounter procedure [facility] Work Phone: Start: 01-22-2024 End: 01-22-2024 ambulatory [facility] Work Phone: Start: 01-22-2024 End: 01-22-2024 Patient encounter procedure [facility] Work Phone: Start: 12-26-2023 End: 12-26-2023 ambulatory [facility] Work Phone: Start: 12-26-2023 End: 12-26-2023 Patient encounter procedure [facility] Work Phone: Start: 12-25-2023 Patient encounter procedure [facility] Start: 12-25-2023 End: 12-25-2023 ambulatory [facility] Work Phone: Start: 12-25-2023 End: 12-25-2023 Patient encounter procedure [facility] Work Phone: Start: 11-20-2023 End: 11-20-2023 ambulatory [facility] Work Phone: Start: 11-20-2023 End: 11-20-2023 Patient encounter procedure [facility] Work Phone: Start: 10-09-2023 End: 10-09-2023 Patient encounter procedure [facility] Work Phone: Start: 09-11-2023 End: 09-11-2023 ambulatory [facility] Work Phone: Start: 09-11-2023 End: 09-11-2023 Patient encounter procedure [facility] Work Phone: Start: 08-28-2023 End: 08-28-2023 ambulatory [facility] Work Phone: Start: 08-28-2023 End: 08-28-2023 Patient encounter procedure [facility] Work Phone: Start: 08-14-2023 Non-patient / Non-visit [facility] Work Phone: Start: 07-23-2023 End: 07-23-2023 ambulatory BEATRIZ H TIMMIS Not Available Start: 07-23-2023 End: 07-23-2023 Office outpatient visit 25 minutes Beatriz Hood MD Work Phone: [facility] Comment on above: 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) Start: 07-23-2023 Bamboo flowsheet Beatriz patel MD Work Phone: [facility] Start: 07-23-2023 Bamboo flowsheet Beatriz patel MD Work Phone: [facility] Start: 07-19-2023 Chart abstracting Beatriz prieto MD Work Phone: [facility] Start: 07-15-2023 End: 07-15-2023 ambulatory BEATRIZ H TIMMIS Not Available Start: 07-15-2023 End: 07-15-2023 Office outpatient visit 15 minutes Beatriz Hood MD Work Phone: [facility] Comment on above: Hearing loss of left ear, unspecified hearing loss type (Primary Dx) Start: 07-15-2023 Chart abstracting Beatriz prieto MD Work Phone: [facility] Start: 07-14-2023 End: 07-14-2023 ambulatory Aurora Ferguson Other [facility] [employer] Other Start: 07-14-2023 Office outpatient vi sit 15 minutes Aurora Ferguson [facility] Start: 07-14-2023 Telephone encounter Aurora Ferguson [facility] Start: 04-11-2023 End: 04-11-2023 ambulatory Aurora Ferguson Other [facility] [employer] Other Start: 04-11-2023 Telephone encounter Aurora Ferguson [facility] Start: 02-13-2023 End: 02-13-2023 ambulatory Aurora Ferguson Other [employer] Other Start: 02-13-2023 Office outpatient vi sit 10 minutes Aurora Ferguson [facility] Start: 01-16-2023 End: 01-16-2023 ambulatory Aurora Ferguson Other [employer] Other Start: 01-16-2023 Office outpatient vi sit 10 minutes Aurora Ferguson [facility] Start: 11-20-2022 End: 11-20-2022 ambulatory Aurora Ferguson Other [employer] Other Start: 11-20-2022 Telephone encounter Aurora Ferguson [facility] Start: 11-01-2022 End: 11-02-[address] AURORA FERGUSON Facility: Start: 10-31-2022 End: 10-31-2022 ambulatory Aurora Ferguson Other [employer] Other Start: 10-31-2022 Patient encounter procedure Aurora Ferguson [facility] Start: 03-07-2022 End: 03-07-2022 ambulatory Beatriz H Timmis Facility:[facility] Start: 03-07-2022 End: 03-07-2022 Admission to same day surgery center Beatriz H Timmis [facility] Start: 03-01-2022 End: 03-02-2022 ambulatory Beatriz H Timmis Facility:[facility] Start: 03-01-2022 End: 03-01-2022 Patient encounter procedure Beatriz H Timmis [facility] Start: 12-24-2021 Adult health examination Aurora Ferguson Other [employer] Other Procedures Date Procedure Procedure Detail Performing [...] Visit [facility] [address] [place] [address] Beatriz Hood MD [address] [place] [address] [facility] Start: 02-07-2023 Influenza vaccination Influenza Vacc ine (#1) [facility] Start: 2019 Pneumococcal Vaccine : 65+ Years (1 - PCV) Pneumococcal Vaccine: 65+ Years (1 - PCV) [facility] Start: 1994 Screening for malign ant neoplasm of breast Mammogram [facility] Start: 1954 Screening for malign ant neoplasm of colon [facility] metabo lic 1999 panel - Serum or Plasma [facility] metabo lic 1999 panel - Serum or Plasma [facility] MG Breast - bilatera l Screening [facility] Immunizations Immunization Date Immunization Notes Care Provider Fa cility 08-11-2020 COVID-19 vaccine, vector-nr, [id number], PF, 0.5 mL Beatriz Hood [facility] Comment on above: Reason for Medicatio n: Prophylaxis Payers Date Payer Category Payer Unknown [id number] 2022 Unknown 2019 Medicare MEDICARE MEDICAR E PART B [id number] 2019-[place] [address] Medicare [id number] 1959 Medicare [id number] 1959 Self-pay 1959 Unknown [id number] 1954 Unknown [id number] 1954 Unknown [id number] 1954 Unknown [id number] 1954 Unknown [id number] 1954 Unknown [id number] 1954 Unknown [id number] Unknown [id number] Unknown [facility] [id number] Unknown [facility] [id number] Social History Date Type Detail Facility Tobacco smoking status No Smokin g Status Entered [facility] Start: 04-14-2023 End: 07-15-2023 Sex Assigned At Female [facility] Start: 04-14-2023 End: 08-28-2023 Tobacco smoking [...] or more drinks on 1 occasion? Never [facility] Start: 04-14-2023 Alcohol Comment caffeine intak e: 1-2 cups per day [facility] Start: 1955 Sex Assigned At Not on file N [facility] Start: 1955 Sex Assigned At Female F [facility] Start: 07-09-2024 End: 10-01-2024 Sex Female (finding) [facility] Functional Status Date Assessment Result Facility 03-01-2022 Functional Status No [facility] Clinical Notes 02-18-2022 to 10-01-2024 Note Date & Type Note Facility 10-01-2024 Evaluation note Authored February 14, 2025 11:46am Highest weight: [...] the medication. She is working with our industrial designer and behavioral modification to keep her weight [...] bioimpedance testing and will follow-up with our industrial designer. She is now eating much healthier overall and needs to try to do better with preplanning. She still continues to add more vegetables and is getting adequate lean protein. She feels good. She should continue long-term healthy lifestyle change with following up closely with our industrial designer. She is now getting regular exercise with walking 4-5 times a week and she has increased her activity. She should start adding some strength training with our manager psychology. She was just exercising 1 day a [...] go out and walk. She is from [place]. She denies any known heart issues but [...] strong family history of type 2 diabetes. [facility] Work Phone: 1(624) 945-330901-31-2025 Evaluation note* Author Zak Gordon [facility] Authored July 09, 2024 1 :50pm Highest weight: 174 lbs. She is down [...] change with following up closely with our industrial designer. She is now getting regular exercise with walking 4-5 times a week and she has increased her activity. She should start adding some strength training with our manager psychology. She was just exercising 1 day a [...] go out and walk. She is from [place]. She denies any known heart issues but [...] fasting blood sugar of 95. Author Lucila [facility] Authored October 01, 2024 11: [...] change with following up closely with our industrial designer. She is now getting regular exercise with walking 4-5 times a week and she has increased her activity. She should start adding some strength training with our manager psychology. She was just exercising 1 day a [...] go out and walk. She is from [place]. She denies any known heart issues but [...] a normal fasting blood sugar of 95. [facility] Work Phone: 1([phone]) 204-104411-04-2024 Evaluation note* Author Zak Gordon [facility] Authored April 12, 2024 1 1:32am Highest [...] change with following up closely with our industrial designer. She is now getting regular exercise with walking 4-5 times a week and she has increased her activity. She should start adding some strength training with our manager psychology. She was just exercising 1 day a [...] go out and walk. She is from [place]. She denies any known heart issues but [...] blood sugar of 95. Author Shannon Mg [facility] Authored July 09, 2024 1 1:55am Highest [...] change with following up closely with our industrial designer. She is now getting regular exercise with walking 4-5 times a week and she has increased her activity. She should start adding some strength training with our manager psychology. She was just exercising 1 day a [...] go out and walk. She is from [place]. She denies any known heart issues but [...] a normal fasting blood sugar of 95. [facility] Work Phone: 1(577) 153-814708-15-2024 Evaluation note* Author Zak Gordon [facility] Authored January 22, 2024 1: 30pm Highest [...] change with following up closely with our industrial designer. She is now getting regular exercise. She will continue increasing exercise as she is now walking 5 or 6 times a week and increased her activity. She should consider adding some strength training with her manager psychology. She was just exercising 1 day a [...] go out and walk. She is from [place]. She denies any known heart issues but [...] blood sugar of 95. Author Shannon Mg [facility] Authored April 12, 2024 1 1:09am Highest [...] change with following up closely with our industrial designer. She is now getting regular exercise. She will continue increasing exercise as she is now walking 5 or 6 times a week and increased her activity. She should consider adding some strength training with her manager psychology. She was just exercising 1 day a [...] go out and walk. She is from [place]. She denies any known heart issues but [...] a normal fasting blood sugar of 95. [facility] Work Phone: 1(689) 492-926207-19-2024 Evaluation note* Author Zak Gordon [facility] Authored December 26, 2023 11:3 2am Highest [...] change with following up closely with our industrial designer and continue increasing exercise and activity from [...] go out and walk. She is from [place]. She did have a bout of alcohol [...] blood sugar of 95. Author Shannon Mg [facility] Authored January 22, 2024 2: 12pm Highest [...] change with following up closely with our industrial designer and continue increasing exercise and activity from [...] go out and walk. She is from [place]. She did have a bout of alcohol [...] blood sugar of 95. Author Zak Gordon [facility] Authored November 20, 2023 3:48 pm Highest [...] change with following up closely with our industrial designer and continue increasing exercise and activity from [...] go out and walk. She is from [place]. She did have a bout of alcohol [...] a normal fasting blood sugar of 95. [facility] Work Phone: 1([phone]) 352-392706-13-2024 Evaluation note* Author Lucila Michel [facility] Authored December 26, 2023 10:5 2am Highest [...] change with following up closely with our industrial designer and continue increasing exercise and activity from [...] go out and walk. She is from [place]. She did have a bout of alcohol [...] blood sugar of 95. Author Zak Gordon [facility] Authored October 09, 2023 11:48a m Highest [...] change with following up closely with our industrial designer, increasing her exercise and activity from her [...] go out and walk. She is from [place] so it will be hard for her to start exercise with her manager psychology but we could give her a home [...] blood sugar of 95. Author Zak Gordon [facility] Authored November 20, 2023 3:48 pm Highest [...] change with following up closely with our industrial designer and continue increasing exercise and activity from [...] go out and walk. She is from [place]. She did have a bout of alcohol [...] a normal fasting blood sugar of 95. [facility] Work Phone: 1(756) 245-326405-02-2024 Evaluation note* Author Zak Gordon [facility] Authored October 09, 2023 11:48a m Highest [...] change with following up closely with our industrial designer, increasing her exercise and activity from her [...] go out and walk. She is from [place] so it will be hard for her to start exercise with her manager psychology but we could give her a home [...] blood sugar of 95. Author Zak Gordon [facility] Authored November 20, 2023 3:48 pm Highest [...] change with following up closely with our industrial designer and continue increasing exercise and activity from [...] go out and walk. She is from [place]. She did have a bout of alcohol [...] a normal fasting blood sugar of 95. [facility] Work Phone: 1(159) 936-130203-21-2024 Evaluation note* Author Zak Gordon [facility] Authored August 28, 2023 1:5 3pm Assessment: [...] change with following up closely with our industrial designer, increasing her exercise and activity from her [...] go out and walk. She is from [place] so it will be hard for her to start exercise with her manager psychology but we could give her a home [...] Our exercise program was recommended with our manager psychology/obesity exercise group. Handout given. Our free weekly [...] and benefits of prescribed meds discussed. Initial [id number] interview/evaluation. The patient was counseled in detail on the options for weight loss in an individual setting. 65 minutes was spent caring for the patient, counseling/educating patient on the options for the treatment of obesity and related healthcare issues. The program's treatment goals were reviewed with the patient. Each aspect of the program was discussed with the patient. [facility] Work Phone: 1(121) 877-529303-21-2024 Evaluation note* Author Zak Gordon [facility] Authored August 28, 2023 1:5 3pm Assessment: [...] change with following up closely with our industrial designer, increasing her exercise and activity from her [...] go out and walk. She is from [place] so it will be hard for her to start exercise with her manager psychology but we could give her a home [...] Our exercise program was recommended with our manager psychology/obesity exercise group. Handout given. Our free weekly [...] and benefits of prescribed meds discussed. Initial [id number]-[id number] interview/evaluation. The patient was counseled in detail on the options for weight loss in an individual setting. 65 minutes was spent caring for the patient, counseling/educating patient on the options for the treatment of obesity and related healthcare issues. The program's treatment goals were reviewed with the patient. Each aspect of the program was discussed with the patient. Author Zak Gordon [facility] Authored October 09, 2023 11:48a m Highest [...] change with following up closely with our industrial designer, increasing her exercise and activity from her [...] go out and walk. She is from [place] so it will be hard for her to start exercise with her manager psychology but we could give her a home [...] blood sugar of 95. Author Zak Gordon [facility] Authored November 20, 2023 2:52 pm Highest [...] change with following up closely with our industrial designer and continue increasing her exercise and activity [...] go out and walk. She is from [place]. She did have a bout of alcohol [...] a normal fasting blood sugar of 95. [facility] Work Phone: 1(189) 946-236003-20-2024 Evaluation note* Author Juhi Brmichelle [facility] Authored August 27, 2023 2:4 4pm Assessment: [...] Our exercise program was recommended with our manager psychology/obesity exercise group. Handout given. Our free weekly [...] and benefits of prescribed meds discussed. Initial [id number]-[id number] interview/evaluation. The patient was counseled in detail on the options for weight loss in an individual setting. [ ] minutes was spent caring for the patient, counseling/educating patient on the options for the treatment of obesity and related healthcare issues. The program's treatment goals were reviewed with the patient. Each aspect of the program was discussed with the patient. [facility] Work Phone: [phone]) 701-592702-14-2024 History of Present illness Narrative* Beatriz Hood MD - 07/23/2023 3:20 PM EST Subjective [...] loss (SNHL) of both ears 04/10/2023 Hypothyroid ([facility]) 04/10/2023 Vitamin D deficiency 04/10/2023 Hyperlipidemia ([facility]) 04/10/2023 Resolved Ambulatory Problems Diagnosis Date Noted No Resolved Ambulatory Problems Past Medical History: Diagnosis Date COVID-19 06/2021 Eustachian tube disorder, left H/O being hospitalized HLD (hyperlipidemia) (CMS/HCC) Hypothyroidism (CMS/[facility]) Vertigo, benign paroxysmal, unspecified laterality Past Surgical History: Procedure Laterality Date BREAST BIOPSY TYMPANOSTOMY TUBE PLACEMENT Left 03/07/2022 T-tube, Sana Allergies Allergen Reactions Azithromycin Other Reaction(s): Unknown Penicillin G Sodium Rash Current Outpatient Medications on File Prior to Visit Medication Sig Dispense Refill ergocalciferol (Vitamin D-2) 1.25 MG (10014 UT) capsule Take 50,000 Units by mouth [...] Floxin for residual inflamation documented in this encounterResearch Medical Center-Brookside [id number] History of Present illness Narrative* Beatriz Hood MD - 07/15/2023 3:20 PM EST Subjective [...] loss (SNHL) of both ears 04/10/2023 Hypothyroid (CMS/HCC) 04/10/2023 Vitamin D deficiency 04/10/2023 Hyperlipidemia (CMS/HCC) 04/10/2023 Resolved Ambulatory Problems Diagnosis Date Noted No Resolved Ambulatory Problems Past Medical History: Diagnosis Date COVID-19 06/2021 Eustachian tube disorder, left H/O being hospitalized HLD (hyperlipidemia) (CMS/HCC) Hypothyroidism (CMS/HCC) Vertigo, benign paroxysmal, unspecified laterality Past Surgical History: Procedure Laterality Date BREAST BIOPSY TYMPANOSTOMY TUBE PLACEMENT Left 03/07/2022 T-tube, Sana Allergies Allergen Reactions Azithromycin Other Reaction(s): Unknown Penicillin G Sodium Rash Current Outpatient Medications on File Prior to Visit Medication Sig Dispense Refill ergocalciferol (Vitamin D-2) 1.25 MG (37421 UT) capsule Take 50,000 Units by mouth [...] debride in one week documented in this encounterResearch Medical Center-Brookside [id number] Evaluation note* Encounter Date Diagnosis Assessment Notes Treatment Notes Treatment Clinical Notes Jul, Abnormal tympanic membrane of left ear (ICD-10 - H73.92) Pt will contact Dr. Hood. Tube is still present and unlikely to fall out with the amount of scabbing that is surrounding area. Jul, Overweight (ICD-10 - E66.3) Pt had moderate results w adipex last year. Agrees to referral to weight loss clinic and is interested in Contrave. Jul, Body mass index [BMI] 29.0-29.9, adult (ICD-10 - Z68.29) [employer] Other 11-03-2023 Evaluation note* Encounter Date Diagnosis Assessment Notes Treatment Notes Treatment Clinical Notes Apr, Overweight (ICD-10 - E66.3) [employer] Other 09-07-2023 Evaluation note* Encounter Date Diagnosis [...] index [BMI] 28.0-28.9, adult (ICD-10 - Z68.28) [employer] Other 08-10-2023 Evaluation note* Encounter Date Diagnosis [...] ER and Follow-up with our office immediately. [employer] Other 05-25-2023 Evaluation note* Encounter Date Diagnosis [...] by [ ], under direct supervision of Dr. Ybarra ]. Document reviewed and amended by provider [...] [BMI ] 29.0-29.9, adult (ICD-10 - Z68.29) [employer] Other 09-29-2022 Evaluation + Plan noteExtracted from: Title:ANES PREOP Author:Aroldo Guerrero DO Date: Plan [place] [employer] (ASA) physical status classification: [...] discussed. Pt aware and desires to proceed. [facility]09-29-2022 Hospital Discharge instructions Patient Education 03/07/2022 11:40:24 Post Op Patient Instructions - FT (CUSTOM) Follow Up Care 01/29/2022 11:53:32 With:Beatriz Hood Address:Unknown When: Unknown Comments:One month [facility]09-12-2022 Note [id number]:127[facility] Chief complaint+Reason for visit Narrative* Chief Complaint Amb Documentation Referral Dr. Noris Landis [facility] Work Phone: Chier complaint+Reason for visit Narrative* Chief Complaint Amb Documentation Referral Dr. Noris Landis Reason for Visit Abnormal weight gain Elevated blood-pressure reading, without diagnosis of hypertension Hypercholesteremia Hypothyroid [facility] Work Phone: chief complaint+Reason for visit Narrative* Chief Complaint Referral Dr. Noris Reardon Reason for Visit Abnormal weight gain Elevated blood-pressure reading, without diagnosis of hypertension Hypercholesteremia Hypothyroid Elevated blood-pressure reading, without diagnosis of hypertension Hypercholesteremia Overweight (BMI 25.0-29.9) [facility] Work Phone: Evaluation + Plan note Future Appointments Appointment Date:03/07/2022 08:00:00 AM Scheduled Provider: Location:[facility] [employer] Other Evaluation note* Diagnosis Hearing loss of left ear, unspecified hearing loss type- Primary documented in this encounter [facility] HealthcareEvaluation note* Diagnosis Chronic myringitis of left ear- Primary documented in this encounter [facility]* Diagnosis Onset Date Resolution Status Admit Date Hypercholesteremia acute December 092024 10:52am Hypothyroid acute January 06 10:52am Medicare annual wellness vis it, initial acute January 06, 2025 10:52am Screening mammogram for lyla [facility] cancer acute January 06, 2025 10:52am [facility] Work Phone: History general Narrative - Reported* [...] Fatigue Surgical History Left ear tube 02/2022 [employer] Other History general Narrative - ReportedNort [employer] Other History general Narrative - Reported* Type [...] tube 02/2022 Hospitalization History SEE SURGICAL HX [employer] Other Hospital course Narrative No data available for this section [facility] No data available for this section [facility] No data available for this section [facility]Reason for referral (narrative)No reason for referral information availableSouthwest [facility] Center Work Phone: Summary Purpose Family History Relationship [...] contrave. Diagnosis 1 Overweight (E66.3) Referral Organization [facility] Robles camarena Referring Provider First Name Aurora Referring Provider Last Name Monica Referring Provider Specialty [facility] Referred Organization [facility] Referred Provider Wayne Trimble Referred Address [address],[place], [place],[address] Referred Provider Specialty Internal Med icine Referral [...] section and content) DATE CREATED AUTHOR 08/03/2021 [facility] DATE CREATED AUTHOR AUTHOR'S ORGANIZ ATION 03/18/2022 [facility] DATE CREATED AUTHOR AUTHOR'S ORGANIZ ATION 05/14/2022 [facility] DATE CREATED AUTHOR AUTHOR'S ORGANIZ ATION 11/15/2022 [facility] [place] [facility] DATE CREATED AUTHOR AUTHOR'S ORGANIZ ATION 07/25/2023 [facility] EPIC Care Team (unrecognized sect [...] November 20, 2023 End: November 20, 2023 Siderographer Relationship Specialty Start Date End Date Aurora Ferguson MD [address] [place] [id number] PCP - General Family Medicine 04/08/23 Siderographer Relationship Specialty Start Date End Date Aurora Ferguson MD [address] [place] [id number] PCP - General Family Medicine 04/08/23 Siderographer Relationship Specialty Start Date End Date Aurora Ferguson MD [address] [place] [id number] PCP - General Family Medicine 04/08/23 Team [...] January 06, 2025 End: January 06, 2025 Team Status: Active Member Role Status Dates Aurora Ferguson MD Primary Care Provider Active Start: January 07, 2025 Aurora Ferguson MD Attending Provider Active St art: January 07, 2025 Team Status: Inactive Member Role Status Dates Aurora Ferguson MD Primary Care Provider Active Start: February 14, 2025 End: February 14, 2025 Zak Gordon MD Attending Provider Active Start: February 14, 2025 End: February 14, 2025 REASON FOR VISIT (unrecogniz ed section [...] BE BASED ON THE PRIMARY CLINICAL RECORDS. [employer] provides no warranty or guarantee of the accuracy or completeness of information in this document.
[2025-02-18 09:47] LABS: Cholesterol 191 mg/dL (<=200); HDL Cholesterol 59 mg/dL (40-60); Triglycerides 71 mg/dL (<=150); VLDL CHOLESTEROL 14.2 mg/dL
== END 2025-02-18 08:04 | disposition home or self-care (01) ==
LOC: LAB 08:03
PROVIDERS: PCP Family Medicine; Visit Provider Internal Medicine
DX: E78.00 Pure hypercholesterolemia, unspecified (principal); E03.9 Hypothyroidism, unspecified
CPT/HCPCS: 36415; 80061; 82172